=== PATIENT | female | born 1945 | race Caucasian/White ===

== ENCOUNTER → 2016-08-08 | Outpatient (REF) | payer MEDICARE, OTHER ==
[~2016-08-08] MED LIST: AMIT24CA5 PO; CALC600T7 PO; CLONI1TA PO; EVIS1TAB PO; GEOD1CAP PO; POTA10CA32 PO; PROTPAK PO; RANI1TAB6 PO; SYNT150T PO; TOPA100T8 PO; TRAD5TAB PO; TRIA37.53 PO; TUMS500C PO; VYTO10TA2 PO; ZOLO100T PO; ZYPR10TA PO; [UNRECOGNIZED DRUG - CODE] PO
[2016-08-08 14:54] LABS: PERCENT SATURATION 19.4 % (13.2-37.4)
[2016-08-08 19:07] LABS: BACTERIA, URINE SMALL AMOUNT; CALCIUM OXALATE CRYSTALS,URINE LARGE AMOUNT /hpf; SQUAMOUS EPITHELIAL CELL URINE LARGE AMOUNT /hpf (SMALL AMT)
[2016-08-08 19:08] LABS: HYALINE CAST, URINE 20-30 /lpf (0-1); MICROSCOPIC EXAM PERFORMED
== END ==
LOC: M LAB REF 13:07
PROVIDERS: ATTEND Internal Medicine Nephrology
DX: N18.3 Chronic kidney disease, stage 3 (moderate) (principal); R31.9 Hematuria, unspecified; D63.1 Anemia in chronic kidney disease

== ENCOUNTER → 2016-08-15 | Outpatient (CLI) | payer MEDICARE, BC, OTHER ==
--- NOTE | 2016-08-15 16:36 | REP ---
Clinical: Chronic renal disease. Technique: Real time bonilla scale ultrasound examination using curved array transducer. Findings: The right kidney is normal in contour, size, echogenicity, and reniform shape without hydronephrosis, nephrolithiasis, cystic or mass lesion and measures 9.8 x 3.8 x 4.0 cm. The left kidney is normal in contour, size, and reniform shape appearing mildly echogenic without hydronephrosis, nephrolithiasis, cystic or mass lesion and measures 9.2 x 4.7 x 4.2 cm. Bladder is incompletely distended. Impression: Findings compatible with chronic medical renal disease (left greater than right). No hydronephrosis. Signed by Max Chung MD 08/15/2016 04:28 P
== END ==
LOC: M RAD 15:48
PROVIDERS: ATTEND Internal Medicine Nephrology
DX: E11.22 Type 2 diabetes mellitus with diabetic chronic kidney disease (principal); I12.9 Hypertensive chronic kidney disease with stage 1 through stage 4 chronic kidney disease, or unspecified chronic kidney disease; N18.3 Chronic kidney disease, stage 3 (moderate)
CPT/HCPCS: 76775; G0463

== ENCOUNTER → 2016-11-02 | Outpatient (REF) | payer MEDICARE, OTHER ==
[~2016-11-02] MED LIST changes: -AMIT24CA5 PO; +AMIT24CA7 PO; +TOPA100T12 PO; -TOPA100T8 PO; -VYTO10TA2 PO; +VYTO10TA25 PO
[2016-11-02 15:58] LABS: ALBUMIN 3.5 GM/DL (3.2-5.2); ALBUMIN/GLOBULIN RATIO 1.21 (1.00-1.93); BILIRUBIN,TOTAL 0.3 MG/DL (0.2-1.0); CALCIUM LEVEL 8.6 MG/DL (8.8-10.2); CREATININE FOR GFR 1.22 MG/DL (0.55-1.02); POTASSIUM SERUM 4.5 MEQ/L (3.5-5.1); TOTAL PROTEIN 6.4 GM/DL (6.4-8.2)
== END ==
LOC: M SFHCLACO 09:20
PROVIDERS: ATTEND Physician Assistant
DX: E78.2 Mixed hyperlipidemia (principal); E87.6 Hypokalemia; I10 Essential (primary) hypertension; E11.9 Type 2 diabetes mellitus without complications; E03.9 Hypothyroidism, unspecified

== ENCOUNTER → 2016-11-16 | Outpatient (REF) | payer MEDICARE, OTHER ==
[~2016-11-16] MED LIST changes: +AMIT24CA5 PO; -AMIT24CA7 PO; -TOPA100T12 PO; +TOPA100T8 PO; +VYTO10TA2 PO; -VYTO10TA25 PO
[2016-11-16 18:36] LABS: BACTERIA, URINE SMALL AMOUNT; RBC, URINE 0-1 /hpf (0-3); SQUAMOUS EPITHELIAL CELL URINE MOD AMOUNT /hpf (SMALL AMT)
[2016-11-16 18:39] LABS: MICROSCOPIC EXAM PERFORMED
== END ==
LOC: M LAB REF 17:07
PROVIDERS: ATTEND Internal Medicine Nephrology
DX: R82.99 Other abnormal findings in urine (principal)

== ENCOUNTER → 2017-04-17 | Outpatient (CLI) | payer MEDICARE, BC ==
[~2017-04-17] MED LIST changes: -AMIT24CA5 PO; +AMIT24CA7 PO; +TOPA100T12 PO; -TOPA100T8 PO; -VYTO10TA2 PO; +VYTO10TA25 PO
--- NOTE | 2017-04-17 15:07 | REPMRS ---
Patient History The patient states she had a clinical breast exam in 03/2017. Patient is postmenopausal and has history of endometrial cancer at age 33. Family history of colorectal cancer in mother and prostate cancer in 2 brothers at age 50 or over. Benign excisional biopsy of the left breast, 1989. Digital Woman Screen Mammo: April 17, 2017 - Exam #: [id number] Bilateral CC and MLO view(s) were taken. Technologist: Tiffany Shannon, Technologist Prior study comparison: March 30, 2016, digital woman screen mammo performed at [facility] to [facility]. February 26, 2015, digital woman screen mammo performed at [facility] to [facility]. FINDINGS: There are scattered fibroglandular densities. There has been no change in the appearance of the mammogram from the prior studies. There is a mild amount of residual fibroglandular tissue which is fairly symmetric. There is no interval development of dominant mass, architectural distortion, or clustered microcalcification suggestive of malignancy. ASSESSMENT: BI-RADS/ACR category 1 mammogram. Negative. Recommendation Routine screening mammogram in 1 year (for women over age 40). This mammogram was interpreted with the aid of an FDA-approved computer-aided dectection system. Electronically Signed By: Luis M Chatman MD 04/17/17 [id number]
== END ==
LOC: M WHC 14:22
PROVIDERS: ATTEND Physician Assistant
DX: Z12.31 Encounter for screening mammogram for malignant neoplasm of breast (principal); Z80.0 Family history of malignant neoplasm of digestive organs

== ENCOUNTER → 2017-05-01 | Outpatient (REF) | payer MEDICARE, OTHER ==
[2017-05-01 16:01] LABS: ALBUMIN 3.8 GM/DL (3.2-5.2); ALBUMIN/GLOBULIN RATIO 1.15 (1.00-1.93); BILIRUBIN,TOTAL 0.3 MG/DL (0.2-1.0); CALCIUM LEVEL 9.4 MG/DL (8.8-10.2); CREATININE FOR GFR 1.36 MG/DL (0.55-1.02); GLOMERULAR FILTRATION RATE 40.5 (>39); POTASSIUM SERUM 4.4 MEQ/L (3.5-5.1); TOTAL PROTEIN 7.1 GM/DL (6.4-8.2)
== END ==
LOC: M SFHCLACO 09:48
PROVIDERS: ATTEND Physician Assistant
DX: I10 Essential (primary) hypertension (principal); E78.2 Mixed hyperlipidemia; E87.6 Hypokalemia; E11.9 Type 2 diabetes mellitus without complications; E03.9 Hypothyroidism, unspecified

== ENCOUNTER → 2017-10-30 | Outpatient (REF) | payer MEDICARE, OTHER ==
[2017-10-30 15:10] LABS: ESTIMATED AVERAGE GLUCOSE 128 MG/DL (60-110); HEMOGLOBIN A1c 6.1 %
[2017-10-30 15:35] LABS: ALBUMIN 3.7 GM/DL (3.2-5.2); ALBUMIN/GLOBULIN RATIO 1.19 (1.00-1.93); ALKALINE PHOSPHATASE 81 U/L (45-117); ALT/SGPT 23 U/L (12-78); ANION GAP 7 MEQ/L (8-16); AST/SGOT 21 U/L (7-37); BILIRUBIN,TOTAL 0.3 MG/DL (0.2-1.0); BLOOD UREA NITROGEN 20 MG/DL (7-18); CALCIUM LEVEL 9.3 MG/DL (8.8-10.2); CARBON DIOXIDE LEVEL 24 MEQ/L (21-32); CHLORIDE LEVEL 105 MEQ/L (98-107); CHOLESTEROL LEVEL 176 MG/DL (<200); CHOLESTEROL RISK RATIO 1.795 (<5); CREATININE FOR GFR 1.31 MG/DL (0.55-1.30); GLOMERULAR FILTRATION RATE 42.3 (>39); GLUCOSE, FASTING 98 MG/DL (70-100); HDL CHOLESTEROL 98 MG/DL (>40); LDL CHOLESTEROL 63.4 MG/DL (<100); NON-HDL-C 78 MG/DL; POTASSIUM SERUM 4.5 MEQ/L (3.5-5.1); SODIUM LEVEL 136 MEQ/L (136-145); TOTAL PROTEIN 6.8 GM/DL (6.4-8.2); TRIGLYCERIDES LEVEL 73 MG/DL (<150)
== END ==
LOC: M SFHCLACO 09:06
DX: I10 Essential (primary) hypertension (principal); E78.2 Mixed hyperlipidemia; E87.6 Hypokalemia; E11.9 Type 2 diabetes mellitus without complications; E03.9 Hypothyroidism, unspecified
CPT/HCPCS: 84443

== ENCOUNTER → 2017-11-13 | Outpatient (REF) | payer MEDICARE, OTHER | LOC: M SFHCLACO 10:00 | DX: E03.9 Hypothyroidism, unspecified (principal) | CPT/HCPCS: 84443 ==

== ENCOUNTER → 2018-01-08 | Outpatient (REF) | payer MEDICARE, OTHER ==
[2018-01-08 19:01] LABS: OSMOLALITY URINE 403 MOSM/KG (500-800)
[2018-01-08 19:13] LABS: SODIUM,RANDOM URINE 14 MEQ/L
== END ==
LOC: M LAB REF 17:14
DX: E87.1 Hypo-osmolality and hyponatremia (principal)
CPT/HCPCS: 83935

== ENCOUNTER → 2018-02-13 | Outpatient (REF) | payer MEDICARE, OTHER | LOC: M LABDRAW1 17:51 | DX: M25.552 Pain in left hip (principal); K59.01 Slow transit constipation | CPT/HCPCS: 85027 ==

== ENCOUNTER → 2018-02-13 | Outpatient (REF) | payer MEDICARE, OTHER ==
[2018-02-13 19:23] LABS: HEMATOCRIT 36.1 % (36.0-47.0); HEMOGLOBIN 11.8 g/dl (12.0-15.5); MEAN CORPUSCULAR HEMOGLOBIN 31.4 pg (27.0-33.0); MEAN CORPUSCULAR HGB CONC 32.7 g/dl (32.0-36.5); PLATELET COUNT, AUTOMATED 277 10^3/uL (150-450); RED BLOOD COUNT 3.76 10^6/uL (4.00-5.40); RED CELL DISTRIBUTION WIDTH 14.8 % (11.5-14.5); WHITE BLOOD COUNT 9.7 10^3/uL (4.0-10.0)
== END ==
LOC: M LABDRAW1 17:52
DX: K59.01 Slow transit constipation (principal)

== ENCOUNTER → 2018-04-22 | Outpatient (CLI) | payer MEDICARE, BC | LOC: M WHC 12:44 | DX: Z12.31 Encounter for screening mammogram for malignant neoplasm of breast (principal); Z92.89 Personal history of other medical treatment; Z80.42 Family history of malignant neoplasm of prostate; Z80.0 Family history of malignant neoplasm of digestive organs | CPT/HCPCS: 77067 ==

== ENCOUNTER → 2018-05-13 | Outpatient (REF) | payer MEDICARE, OTHER ==
[2018-05-13 18:38] LABS: PERCENT SATURATION 17.2 % (13.2-45.0)
[2018-05-13 19:06] LABS: FOLATE 19.3 NG/ML
== END ==
LOC: M LAB REF 17:22
PROVIDERS: ATTEND Internal Medicine Nephrology
DX: D64.9 Anemia, unspecified (principal)

== ENCOUNTER → 2018-05-30 | Outpatient (REF) | payer MEDICARE, OTHER ==
[2018-05-30 16:12] LABS: FREE T4 0.84 NG/DL (0.76-1.46); THYROID STIMULATING HORMONE 5.72 uIU/ML (0.358-3.740); TOTAL T3 81.8 NG/DL (60.0-181.0)
== END ==
LOC: M LABDRAW1 13:22
PROVIDERS: ATTEND Physician Assistant
DX: E03.9 Hypothyroidism, unspecified (principal)
CPT/HCPCS: 36415; 84439; 84443; 84480; G0463

== ENCOUNTER → 2019-12-23 | Outpatient (REF) | payer MEDICARE, OTHER, BC ==
[~2019-12-23] MED LIST changes: +CALC-212 PO; -CALC600T7 PO; +RANI-397 PO; -RANI1TAB6 PO
[2020-01-16 11:13] LABS: HEMOGLOBIN 11.6 g/dl (12.0-15.5); MEAN CORPUSCULAR HEMOGLOBIN 30.1 pg (27.0-33.0); MEAN CORPUSCULAR HGB CONC 33.1 g/dl (32.0-36.5); MEAN CORPUSCULAR VOLUME 90.9 fl (80.0-96.0); PLATELET COUNT, AUTOMATED 224 10^3/uL (150-450); RED BLOOD COUNT 3.85 10^6/uL (4.00-5.40)
[2020-01-16 11:14] LABS: ERYTHROCYTE SEDIMENTATION RATE 45 mm/hr (0-30)
[2020-01-26 15:23] LABS: ALBUMIN 3.5 GM/DL (3.2-5.2); ALT/SGPT 28 U/L (12-78); BILIRUBIN,TOTAL 0.3 MG/DL (0.2-1.0); BLOOD UREA NITROGEN 12 MG/DL (7-18); C REACTIVE PROTEIN QUANTITATIV 1.08 MG/DL (0.00-0.30); CALCIUM LEVEL 8.8 MG/DL (8.8-10.2); CARBON DIOXIDE LEVEL 24 MEQ/L (21-32); CHLORIDE LEVEL 100 MEQ/L (98-107); CREATININE FOR GFR 0.88 MG/DL (0.55-1.30); FERRITIN 87 NG/ML (8-252); FREE T4 1.24 NG/DL (0.76-1.46); GLOMERULAR FILTRATION RATE > 60.0 (>39); GLUCOSE, FASTING 83 MG/DL (70-100); IRON (FE) 59 UG/DL (50-170); PERCENT SATURATION 18.9 % (13.2-45.0); POTASSIUM SERUM 4.1 MEQ/L (3.5-5.1); SODIUM LEVEL 133 MEQ/L (136-145); THYROID STIMULATING HORMONE 0.061 uIU/ML (0.358-3.740); TOTAL IRON BINDING CAPACITY 312 UG/DL (250-450); TOTAL PROTEIN 6.6 GM/DL (6.4-8.2)
== END ==
LOC: M SFHCPLAZ 15:26
PROVIDERS: ATTEND Family Medicine
DX: N18.3 Chronic kidney disease, stage 3 (moderate) (principal); E11.22 Type 2 diabetes mellitus with diabetic chronic kidney disease; I12.9 Hypertensive chronic kidney disease with stage 1 through stage 4 chronic kidney disease, or unspecified chronic kidney disease; E07.9 Disorder of thyroid, unspecified

== ENCOUNTER 2019-12-31 07:05 | Inpatient (IN) | payer MEDICARE, BC, OTHER ==
[~2019-12-31 07:05] MED LIST changes: +ACETAMINOPHEN 500 MG TAB As Ordered ONE; +LIDOCAINE 2% 100MG/5ML SDV (FOR ANES.) As Ordered ONE; +MIDAZOLAM INJ 2MG/2ML VIAL (J2250 PER 1MG) As Ordered ONE; +ceFAZolin 2 GM/D5W 50 ML IV BAG (J0690 PER 500MG) As Ordered ONE; +fentaNYL 100 MCG/2 ML INJECTION (J3010) As Ordered ONE; +propofoL 200 MG/20 ML VIAL As Ordered ONE
[2019-12-31] MEDS ORDERED: ceFAZolin 1GM VIAL (J0690 PER 500MG) As Ordered ONE (07:34)
[2019-12-31] MEDS ORDERED: PHENYLephrine HCL 500 MCG/5 ML (100MCG/ML) SYRINGE (J2370) As Ordered ONE ×3 (08:15→09:21)
[2019-12-31] MEDS ORDERED: propofoL 200 MG/20 ML VIAL As Ordered ONE (08:23)
[2019-12-31] MEDS ORDERED: ePHEDrine SULFATE 25 MG/5 ML(5MG/ML) SYRINGE As Ordered ONE (08:59)
[2019-12-31] MEDS ORDERED: ONDANSETRON 4MG/2ML VIAL As Ordered ONE (10:08)
[2019-12-31] MEDS ORDERED: ONDANSETRON 4MG/2ML VIAL ONE (10:08)
[2019-12-31] MEDS ORDERED: oxyCODONE 5MG TAB ONE (10:13)
[2019-12-31] MEDS ORDERED: HYDROMORPHONE HCL 0.5 MG/ 0.5 ML SYRINGE (J1170 PER 1) ONE (10:13)
[2019-12-31] MEDS ORDERED: HYDROMORPHONE HCL 0.5 MG/ 0.5 ML SYRINGE (J1170 PER 1) As Ordered ONE (10:13)
[2019-12-31] MEDS ORDERED: oxyCODONE 5MG TAB As Ordered ONE (10:13)
[2019-12-31] MEDS ORDERED: METOCLOPRAMIDE INJ 10MG/2ML VIAL (J2765 PER 1) As Ordered ONE (10:28)
[2019-12-31] MEDS ORDERED: METOCLOPRAMIDE INJ 10MG/2ML VIAL (J2765 PER 1) ONE (10:28)
[2019-12-31] MEDS ORDERED: MORPHINE 2 MG/ML 1ML VIAL (J2270) As Ordered ONE (13:50)
[2019-12-31] MEDS ORDERED: ceFAZolin 2 GM/D5W 50 ML IV BAG (J0690 PER 500MG) As Ordered ONE ×2 (17:11→23:18)
[2019-12-31] MEDS ORDERED: PERCOCET 5MG/325MG TAB As Ordered ONE (19:41)
[2019-12-31] MEDS ORDERED: PANTOPRAZOLE 40MG TAB (PROTONIX) As Ordered ONE (23:18)
[2019-12-31] MEDS ORDERED: TOPIRAMATE (TopAMAX) 100 MG TAB As Ordered ONE (23:18)
[2019-12-31] MEDS ORDERED: POTASSIUM CHLORIDE 10 MEQ SR TABLET As Ordered ONE (23:18)
[2019-12-31] MEDS ORDERED: OLANZapine 5 MG TAB As Ordered ONE (23:19)
[2019-12-31] MEDS ORDERED: ASPIRIN 81 MG ENTERIC TAB As Ordered ONE (23:19)
[2019-12-31] MEDS ORDERED: SERTRALINE 100 MG TAB As Ordered ONE (23:19)
[2020-01-01] MEDS ORDERED: PERCOCET 5MG/325MG TAB As Ordered ONE ×3 (03:36→18:21)
[2020-01-01] MEDS ORDERED: LEVOTHYROXINE 150MCG TABLET (0.15MG) As Ordered ONE (06:53)
[2020-01-01] MEDS ORDERED: ceFAZolin 2 GM/D5W 50 ML IV BAG (J0690 PER 500MG) As Ordered ONE (09:31)
[2020-01-01] MEDS ORDERED: SENOKOT S TAB As Ordered ONE ×2 (09:33→22:12)
[2020-01-01] MEDS ORDERED: MIRALAX *UNIT DOSE* 17GM PACKET As Ordered ONE (09:33)
[2020-01-01] MEDS ORDERED: MOM 30ML SUSPENSION UDC As Ordered ONE (09:33)
[2020-01-01] MEDS ORDERED: ASPIRIN 81 MG ENTERIC TAB As Ordered ONE ×2 (09:34→22:14)
[2020-01-01] MEDS ORDERED: PANTOPRAZOLE 40MG TAB (PROTONIX) As Ordered ONE (22:10)
[2020-01-01] MEDS ORDERED: POTASSIUM CHLORIDE 10 MEQ SR TABLET As Ordered ONE (22:12)
[2020-01-01] MEDS ORDERED: OLANZapine 5 MG TAB As Ordered ONE (22:13)
[2020-01-01] MEDS ORDERED: SERTRALINE 100 MG TAB As Ordered ONE (22:13)
[2020-01-01] MEDS ORDERED: TOPIRAMATE (TopAMAX) 100 MG TAB As Ordered ONE (22:13)
[2020-01-02] MEDS ORDERED: PERCOCET 5MG/325MG TAB As Ordered ONE (00:54)
[2020-01-02] MEDS ORDERED: LEVOTHYROXINE 150MCG TABLET (0.15MG) As Ordered ONE (05:18)
[2020-01-02] MEDS ORDERED: ONDANSETRON 4MG/2ML VIAL As Ordered ONE (06:30)
[2020-01-02] MEDS ORDERED: HumaLOG INSULIN (NovoLOG) PER UNIT As Ordered ONE (09:00)
[2020-01-02] MEDS ORDERED: MOM 30ML SUSPENSION UDC As Ordered ONE (09:00)
[2020-01-02] MEDS ORDERED: SENOKOT S TAB As Ordered ONE (09:01)
[2020-01-02] MEDS ORDERED: TOPIRAMATE (TopAMAX) 100 MG TAB As Ordered ONE (09:01)
[2020-01-02] MEDS ORDERED: MIRALAX *UNIT DOSE* 17GM PACKET As Ordered ONE (09:01)
[2020-01-02] MEDS ORDERED: POTASSIUM CHLORIDE 10 MEQ SR TABLET As Ordered ONE (09:01)
[2020-01-02] MEDS ORDERED: ASPIRIN 81 MG ENTERIC TAB As Ordered ONE (09:02)
[2020-01-02] MEDS ORDERED: OLANZapine 5 MG TAB As Ordered ONE (09:02)
[2020-01-02] MEDS ORDERED: ZIPRASIDONE 80 MG CAP (GEODON) ONE (13:00)
[2020-02-06 15:14] LABS: HEMATOCRIT 22.8 % (36.0-47.0); HEMOGLOBIN 7.4 g/dl (12.0-15.5)
--- NOTE | 2020-02-18 10:50 | REP ---
LEFT HIP: TWO VIEWS DATE: 12/31/2019. HISTORY: Postoperative. NOTE: This report was delayed due to a malware attack on this facility. FINDINGS: AP and cross table lateral views of the left hip demonstrate lateral skin ileana and periarticular soft tissue emphysema and swelling associated with left hip arthroplasty. Arthroplasty components are well aligned with respect to their lower brule bones and with respect to each other. IMPRESSION: Status post left hip arthroplasty. CATIE
[2020-02-18 20:07] LABS: HEMATOCRIT 26.6 % (36.0-47.0); HEMOGLOBIN 9.1 g/dl (12.0-15.5); MEAN CORPUSCULAR HGB CONC 34.2 g/dl (32.0-36.5); MEAN CORPUSCULAR VOLUME 87.8 fl (80.0-96.0); PLATELET COUNT, AUTOMATED 134 10^3/uL (150-450); RED BLOOD COUNT 3.03 10^6/uL (4.00-5.40)
[2020-02-18 20:07] LABS: HEMOGLOBIN 9.6 g/dl (12.0-15.5)
[2020-02-28 07:27] LABS: INR 1.03; PROTHROMBIN TIME 13.7 SECONDS (12.5-14.3)
[2020-02-28 11:18] LABS: HEMOGLOBIN 7.7 g/dl (12.0-15.5); MEAN CORPUSCULAR HEMOGLOBIN 30.1 pg (27.0-33.0); MEAN CORPUSCULAR HGB CONC 33.5 g/dl (32.0-36.5); MEAN CORPUSCULAR VOLUME 89.8 fl (80.0-96.0); PLATELET COUNT, AUTOMATED 143 10^3/uL (150-450); RED BLOOD COUNT 2.56 10^6/uL (4.00-5.40)
--- NOTE | 2020-03-04 11:41 | RO ---
DATE OF OPERATION: 12/31/2019 PREOPERATIVE DIAGNOSIS: Left hip severe degenerative arthritis. POSTOPERATIVE DIAGOSIS: Left hip severe degenerative arthritis. PROCEDURE: Left total hip arthroplasty using a size 52 GRIPTION Sector cup with two acetabular screws with a 36-mm neutral polyethylene liner and a size #5 standard offset Greeley stem with a 1.5 neck and a 36-mm cobalt chrome ball. Prosthesis made by [employer]. SURGEON: Faisal Quintero M.D. POWDERER: Ms. Rosalba Crane. ANESTHESIA: Spinal. SPECIMENS: Femoral head. COMPLICATIONS: None. ESTIMATED BLOOD LOSS: 200 mL. FINDINGS: She had significant lateral subluxation of the hip with superior wear on the lateral rim and the acetabulum. This did require medialization of the acetabular cup and deepening. This left a bit of a deficiency superolaterally once the cup had been implanted and screws were placed for secondary fixation. DESCRIPTION OF PROCEDURE: Antibiotics were given intravenously preoperatively and successful spinal anesthetic was induced. She was placed in the lateral decubitus position. Well-padded especially the peroneal nerve. The left hip area was then carefully prepped and draped in the usual sterile fashion after appropriate time-out. We made a longitudinal incision for a direct lateral approach to the hip using Bovee cautery to coagulate crossing vessels down to the tensor fascia. The tensor fascia was divided in line with a skin incision underlying this. It was noteworthy that there was absence of abductors on the greater trochanter. What did remain, we split proximally down into the gluteus minimus and performed an arthrotomy and carefully dissected anteriorly off the bone as we externally rotated the hip, eventually dislocating anteriorly, and placing the leg into the leg bag anteriorly. Piriformis fossa was identified. Starter reamer was placed reamer then placed followed by the canal finding reamer and then the lateralizing reamer. We then reamed up to a size 6; however, it was quite tight proximally and it seemed as if there was a bit of a proximal or distal mismatch. We then performed a femoral neck osteotomy using the guide and then broached up to a size 5 (that is the largest we could fit proximally), but she had a very good stable fit proximally. The small calcar planer was utilized within and exposed the acetabulum. There was a large amount of labral tearing and debris, which was removed circumferentially. Some large bleeders were noted in the deep and medial that were coagulated. We then noted that there was a large floor osteophytes. So we deepened initially with a 48-mm reamer down to the acetabulum fossa and then began expanding our reamers to either the 49, the 50, and the 51. The trial 52 we placed had good fixation inferomedially and inferolaterally, but posterosuperiorally there was a large gap secondary to the eccentric wear. Thus, I elected to the use the GRIPTION Sector cup and supplement with screw fixation. After copiously pulsatile lavage irrigating the acetabulum, as I did do several times throughout the surgery, I placed the real GRIPTION cup using the extramedullary guide to set our version in abduction and actually had reasonable purchase, but nonetheless I did drill the lateral superior screw with a drill measured for 20 and placed a 20 screw with excellent purchase, and then I placed a second screw posterosuperior using the drill followed by the depth gauge measuring 20 and then placed the real screw, and this screw actually had very good purchase into the dense sclerotic bone that had been worn away from the chronic lateral subluxation of her femoral head. We copiously irrigated and then placed the real neutral 36 liner and made sure it was seated well. We then exposed the proximal femur and copiously irrigated out the femoral canal and then placed the trial broach with a 1.5 neck with a 36 ball and then reduced the hip, and she actually had very good stability to flexion, internal rotation, extension, and external rotation. Thus, despite deepening, I did not think a lateral offset was necessary nor did I think it was advisable given the loss of the abductors already and it would have been more difficult to repair what remained of her abductors if we laterally offset the stem. The trial was removed. We copiously irrigated out the canal and placed the real #5 Greeley stem with a standard offset. The 36 x 1.5 ball was then placed after drying the trunnion, and then we reduced the hip. Again, she was very stable with flexion, internal rotation, extension, and external rotation with minimal soft tissue telescoping. We then copious irrigated again and closed the abductors as best as possible first superiorly by closing the gluteus minimus and what remained of the meatus anatomically with interrupted #1 PDS sutures. We closed the vastus lateralis back anatomically with interrupted #1 PDS sutures. We then began irrigating again and closing the tensor fascia with a series of the #1 interrupted sutures. We irrigated between layers. Closed the deep subdermal tissues with interrupted 2-0 PDS sutures and skin was closed with ileana covered by an Optifoam and dry sterile bulky dressing. She was then turned supine and transferred to the recovery room in stable condition. There were no intraoperative complications. Rosalba Royce was critical to the success of this difficult surgery by helping with the appropriate soft tissue manipulation, help to reduce and dislocate the hip several times throughout surgery, help to close the wound, help to prepare the patient amongst many other to allow me to perform the operation smoothly, efficiently, and safely. CATIE
[2020-03-22 10:22] LABS: ALBUMIN 2.4 GM/DL (3.2-5.2); ALT/SGPT 12 U/L (12-78); BILIRUBIN,TOTAL 0.5 MG/DL (0.2-1.0); BLOOD UREA NITROGEN 10 MG/DL (7-18); CALCIUM LEVEL 7.9 MG/DL (8.8-10.2); CARBON DIOXIDE LEVEL 23 MEQ/L (21-32); CHLORIDE LEVEL 103 MEQ/L (98-107); CREATININE FOR GFR 0.77 MG/DL (0.55-1.30); GLOMERULAR FILTRATION RATE > 60.0 (>39); GLUCOSE, FASTING 116 MG/DL (70-100); PHOSPHORUS LEVEL 2.2 MG/DL (2.5-4.9); POTASSIUM SERUM 3.9 MEQ/L (3.5-5.1); SODIUM LEVEL 133 MEQ/L (136-145); TOTAL PROTEIN 4.8 GM/DL (6.4-8.2)
[2020-03-22 16:42] LABS: ALBUMIN 2.6 GM/DL (3.2-5.2); BILIRUBIN,TOTAL 0.3 MG/DL (0.2-1.0); CALCIUM LEVEL 8.4 MG/DL (8.8-10.2); CREATININE FOR GFR 0.97 MG/DL (0.55-1.30); GLOMERULAR FILTRATION RATE 59.4 (>39); MAGNESIUM LEVEL 1.7 MG/DL (1.8-2.4); POTASSIUM SERUM 4.1 MEQ/L (3.5-5.1); TOTAL PROTEIN 4.8 GM/DL (6.4-8.2)
== END 2020-01-02 15:00 | disposition home or self-care (01) | DRG 470 ==
LOC: M MS5PR 07:05
PROVIDERS: ADMIT Orthopaedic Surgery; ATTEND Orthopaedic Surgery
PROC: 0SRB0JZ Replacement of Left Hip Joint with Synthetic Substitute, Open Approach (ICD-10-PCS; principal; 2019-12-31)
DX: M16.12 Unilateral primary osteoarthritis, left hip (principal); Z79.899 Other long term (current) drug therapy

== ENCOUNTER → 2020-01-14 | Outpatient (REF) | payer MEDICARE, OTHER, BC ==
[~2020-01-14] MED LIST changes: -ACETAMINOPHEN 500 MG TAB As Ordered ONE; -LIDOCAINE 2% 100MG/5ML SDV (FOR ANES.) As Ordered ONE; -MIDAZOLAM INJ 2MG/2ML VIAL (J2250 PER 1MG) As Ordered ONE; -ceFAZolin 2 GM/D5W 50 ML IV BAG (J0690 PER 500MG) As Ordered ONE; -fentaNYL 100 MCG/2 ML INJECTION (J3010) As Ordered ONE; -propofoL 200 MG/20 ML VIAL As Ordered ONE
[2020-01-14 14:24] LABS: BASO % 0.3 % (0.0-1.0); EOS # 0.4 10^3/uL (0.0-0.5); HEMATOCRIT 28.3 % (36.0-47.0); HEMOGLOBIN 9.1 g/dl (12.0-15.5); LYMPH # 0.5 10^3/uL (1.5-5.0); LYMPH % 5.4 % (24.0-44.0); MEAN CORPUSCULAR HEMOGLOBIN 29.7 pg (27.0-33.0); MEAN CORPUSCULAR HGB CONC 32.2 g/dl (32.0-36.5); MEAN CORPUSCULAR VOLUME 92.5 fl (80.0-96.0); MONO # 0.5 10^3/uL (0.0-0.8); MONO % 5.7 % (0.0-5.0); NEUTROPHILS # 7.3 10^3/uL (1.5-8.5); NEUTROPHILS % 83.9 % (36.0-66.0); PLATELET COUNT, AUTOMATED 219 10^3/uL (150-450); RED BLOOD COUNT 3.06 10^6/uL (4.00-5.40); WHITE BLOOD COUNT 8.8 10^3/uL (4.0-10.0)
== END ==
LOC: M SMT 13:03 → M LAB REF 13:03
PROVIDERS: ATTEND Physician Assistant Medical
DX: Z47.1 Aftercare following joint replacement surgery (principal)

== ENCOUNTER → 2020-01-27 | Outpatient (REF) | payer MEDICARE, OTHER, BC ==
[2020-01-27 20:09] LABS: PERCENT SATURATION 13.8 % (13.2-45.0)
== END ==
LOC: M LAB REF 14:41
PROVIDERS: ATTEND Internal Medicine Nephrology
DX: D50.9 Iron deficiency anemia, unspecified (principal)

== ENCOUNTER 2020-05-03 13:21 | Inpatient (IN) | payer MEDICARE, BC, OTHER ==
[2020-05-03] MEDS: LR 1,000 ML IV SCH (14:15)
--- NOTE | 2020-05-03 14:32 | HPEPDOC ---
[facility] Medical History & Physical Date of Admission May 03, 2020 Date of Service: May 03, 2020 History and Physical CHIEF COMPLAINT: Right hip pain HISTORY OF PRESENT ILLNESS: 75-year-old female who was seen at the orthopedics clinic by Dr. Ware complaining of right hip pain with x-rays in office showing right femoral neck fracture. Patient was directly admitted to the hospital by her surgeon for surgery. Patient tells me that her right hip pain started approximately 2 weeks ago noticed by her and she has dismissed it as she has no memory of falling and didn't think much of it. This hip pain has progressed since has become very bothersome which led her to go to the orthopedics clinic today. Patient has a recent history of left total hip replacement in December of this year and had just finished home physical therapy 2 weeks ago. I was asked to do a medical consult to manage patient's chronic medical problems and surgical clearance. PAST MEDICAL HISTORY: CKD stage III NIDDM COPD not on home oxygen MDD Hypothyroidism Dementia predominance of short-term memory loss Lung cancer PAST SURGICAL HISTORY: Total left hip replacement Right knee replacement Hysterectomy SOCIAL HISTORY: Denies alcohol use Denies tobacco use currently however she quit smoking 30 years ago prior to that she smoked one pack per day for 30 years. Denies illicit drug use FAMILY HISTORY: Brother history of lung cancer and diabetes Father history of CVA and CAD ALLERGIES: Please see below. REVIEW OF SYSTEMS: 10 point review of systems complete all negative otherwise stated in HPI HOME MEDICATIONS: Please see below. PHYSICAL EXAMINATION: Constitutional: Awake and alert, in no apparent distress. Answering questions appropriately. ENT: Sclera are clear. Mucosa is moist. Respiratory: Lungs CTA bilaterally no wheezing no crackles. No respiratory distress. No use of accessory muscles. Cardiovascular: RRR S1 and S2 are normal, no murmur, no JVD Gastrointestinal: Abdomen is soft, non distended, non tender, BS present. Musculoskeletal: No LE edema. Right hip tender to manipulation Neurologic: No focal neurological deficit. Mental Status: A&O x3, normal affect, has very good long-term memory remembering items such as her knee surgery in 1991. However patient has poor short-term memory such as having to be reminded by her son that she just had a bowel movement a few hours in the hospital. Skin: Warm, dry LABORATORY DATA: See below. IMAGING: X-ray impressions 05/03/2020: Right femoral neck fracture with superior displacement of the right femoral shaft. MICROBIOLOGY: Please see below. ASSESSMENT/PLAN 75-year-old female who was seen at the orthopedics clinic by Dr. Ware complaining of right hip pain with x-rays in office showing right femoral neck fracture. Patient was directly admitted to the hospital by her surgeon for s scar. I was asked to see the patient to optimize her medical management and for surgical clearance. # Right femoral neck fracture: Ordered EKG. Follow-up CBC and CMP. Surgical clearance to follow once EKG is complete. Management/surgery per orthopedic # CKD stage III: Appears to be at baseline. Avoid nephrotoxins. # DM: ISS. Frequent Accu-Cheks. Hypoglycemic precautions. Fu A1C, lipid panel. # COPD not on home oxygen: Not in exacerbation. Continue home inhalers # MDD: Continue home meds # Hypothyroidism: Continue Synthroid # Dementia predominance of short-term memory loss: Bedside window, frequent reorientation # Lung cancer: Follow up with her oncologist and parachute cushion installer at [facility] upon discharge # DVT prophylaxis: Heparin A Yousef Hospitalist Home Medications Scheduled Brimonidine Tartrate (Brimonidine Tartrate) 0.15% 5ML Drops, 1 DROP OU BID Calcium Carbonate/Vitamin D3 (Calcium 600-Vit D3 400 Tablet) 1 Each Tablet, 2 TAB PO DAILY TAKES AT NOON Esomeprazole Magnesium (Nexium) 40 Mg Suspdr.pkt, 40 MG PO DAILY NEW MED, NOT STARTED YET Ezetimibe/Simvastatin (Ezetimibe-Simvastatin 10-40 mg) 1 Each Tablet, 1 TAB PO QHS Levothyroxine Sodium (Levothyroxine Sodium) 150 Mcg Tablet, 150 MCG PO QAM Olanzapine (Olanzapine) 15 Mg Tablet, 15 MG PO QHS Potassium Citrate (Potassium Citrate ER) 15 Meq Tablet.er, 15 MEQ PO BID TAKES AT NOON/QHS Raloxifene HCl (Raloxifene HCl) 60 Mg Tablet, 60 MG PO QHS Sertraline HCl (Sertraline HCl) 100 Mg Tablet, 200 MG PO QHS Topiramate (Topiramate) 100 Mg Tablet, 200 MG PO QHS Ziprasidone HCl (Ziprasidone HCl) 80 Mg Capsule, 80 MG PO QHS Scheduled PRN Ipratropium/Albuterol Sulfate (Combivent Respimat 20-100 Mcg) 4 Gm Mist.inhal, 1 PUFF INH QID PRN for SOB/WHEEZING Polyethylene Glycol 3350 (Miralax) 119 Gm Powder, 17 GM PO DAILY PRN for CONSTIPATION dilute in 8 ounces of water or juice Allergies Coded Allergies: Sulfa (Sulfonamide Antibiotics) (Verified Allergy, Intermediate, HIVES, 02/16/20) A-FIB/CHADSVASC A-FIB History Current/History of A-Fib/PAF?: No YOUSEFEULALIO MD May 03, 2020 14:32
[2020-05-03] MEDS ORDERED: RALO1TAB PO (15:13)
[2020-05-03] MEDS ORDERED: COMBAER6 INH (15:13)
[2020-05-03] MEDS ORDERED: TOPI100T9 PO (15:13)
[2020-05-03] MEDS ORDERED: ZIPR80CA12 PO (15:13)
[2020-05-03] MEDS ORDERED: MIRA3350 PO (15:13)
[2020-05-03] MEDS ORDERED: OLAN15TA PO (15:13)
[2020-05-03] MEDS ORDERED: EZET1TAB8 PO (15:13)
[2020-05-03] MEDS ORDERED: BRIM2OPD OU (15:13)
[2020-05-03] MEDS ORDERED: POTA4.25 PO (15:13)
[2020-05-03] MEDS ORDERED: LEVO150T7 PO (15:13)
[2020-05-03] MEDS ORDERED: SERT-138 PO (15:13)
[2020-05-03] MEDS ORDERED: NEXI40GR PO (15:13)
[2020-05-03] MEDS ORDERED: CALC600T27 PO (15:13)
[2020-05-03] MEDS: MORPHINE 4 MG/ML 1ML VIAL/SYRINGE (J2270) IV PRN (15:26)
[2020-05-03 15:43] LABS: HEMATOCRIT 33.1 % (36.0-47.0); HEMOGLOBIN 10.8 g/dl (12.0-15.5); MEAN CORPUSCULAR HGB CONC 32.6 g/dl (32.0-36.5); MEAN CORPUSCULAR VOLUME 97.9 fl (80.0-96.0); PLATELET COUNT, AUTOMATED 185 10^3/uL (150-450); RED BLOOD COUNT 3.38 10^6/uL (4.00-5.40); WHITE BLOOD COUNT 13.6 10^3/uL (4.0-10.0)
[2020-05-03 16:00] VITALS: BP 138/77
[2020-05-03] MEDS ORDERED: CLINDAMYCIN 900 MG in IV 1 EA IV ONE (16:00)
[2020-05-03 16:17] LABS: BLOOD UREA NITROGEN 25 MG/DL (7-18); CALCIUM LEVEL 9.1 MG/DL (8.8-10.2); CARBON DIOXIDE LEVEL 22 MEQ/L (21-32); CHLORIDE LEVEL 100 MEQ/L (98-107); CREATININE FOR GFR 0.88 MG/DL (0.55-1.30); GLOMERULAR FILTRATION RATE > 60.0 (>39); GLUCOSE, FASTING 105 MG/DL (70-100); NT-PRO BNP 170 PG/ML (<450); POTASSIUM SERUM 4.1 MEQ/L (3.5-5.1); SODIUM LEVEL 130 MEQ/L (136-145)
[2020-05-03] MEDS ORDERED: COMBIVENT RESPIMAT 100-20MCG INHALER 4GM INH PRN (17:30)
--- NOTE | 2020-05-03 17:46 | HPE ---
ADMISSION HISTORY AND PHYSICAL DATE OF ADMISSION: 05/03/2020 CHIEF COMPLAINT: Right hip pain. HISTORY OF PRESENT ILLNESS: This is a 75-year-old woman with no history of a fall although she is quite confused at baseline. She was accompanied by her son in the orthopedic office today. An x-ray obtained showed a displaced right femoral neck fracture. She recently underwent a left total hip arthroplasty on 12/31/19 and had been doing well following that, but she has been basically in a wheelchair, we believe, for the past 1-2 weeks due to this right hip pain. She was referred over to the hospital. The Hospitalists have been involved and are planning on seeing her once the COVID test returns. She has been apparently complaining about significant right hip pain, unable to bear significant weight on it. She was seen one of the P.A.s in the office. ALLERGIES: Her allergies previously listed on a previous H&P as Sulfa. MEDICATIONS: 1. Ferrous Gluconate. 2. Potassium Citrate. 3. Vytorin. 4. Tradjenta. 5. Combivent. 6. Levothyroxine. 7. Zoloft. 8. Geodon. 9. Zyprexa. 10. Topamax. 11. Evista. 12. Calcium. 13. Vitamin D. 14. Cranberry Extract. 15. Alphagan. 16. Toprol XL. 17. Ondansetron. 18. Prochlorperazine. 19. Imfinzi. PAST MEDICAL HISTORY: The patient's past medical history is significant for: 1. Chronic kidney disease. 2. Type 2 diabetes. 3. Hyponatremia. 4. Osteoporosis. 5. History of lung cancer. PAST SURGICAL HISTORY: The patient's past surgical history is significant for: 1. Right total knee arthroscopy. 2. Hysterectomy. 3. Left total hip arthroplasty. SOCIAL HISTORY: She is retired. She used to smoke previously. She does not drink alcohol. FAMILY HISTORY: Noncontributory. REVIEW OF SYSTEMS: The patient's review of systems is negative for chest pain, heart palpitations, cough, wheezing, difficulty breathing. Denies nausea, vomiting, diarrhea or constipation. She does complain of right hip pain. PHYSICAL EXAMINATION: GENERAL APPEARANCE: She is alert, oriented in no acute distress in the hospital. EXTREMITIES: She has some shortening of the right lower extremity compared to the left. The hip on the right demonstrates significant irritability to range of motion. SKIN: Intact. LUNGS: Clear. HEART: Regular rate and rhythm. ABDOMEN: Soft, nontender. IMAGING: X-rays are reviewed from the office and pending here, and they show evidence of a displaced garden IV right femoral neck fracture. IMPRESSION: Right femoral neck fracture, displaced, unknown age but this may be up to the past couple of weeks. It looks like she was seen in the office about [address] Patel and did not appear to have any issues with the right hip at that point. PLAN: The patient wishes to go ahead with a right hip hemiarthroplasty, and I think that is the most appropriate treatment. She does not have significant arthritis on this hip, so I think a hemiarthroplasty would be appropriate. She is aware of the nature of the procedure, the risks which are essentially the same as with the hip replacement which include bleeding, infection, damage to nerves, vessels, persistent pain, wear, loosening, dislocation, leg length inequality, blood clots, medical problems, , among others. The Hospitalists have agreed to see her in consult, but will admit her postoperatively, and this is just due to the way that she was brought into the hospital, not being brought through the Emergency Room. The Hospitalist indicated that he would work on the clearance today, and that she may be cleared for surgery tomorrow. We will plan on proceeding with a right hip hemiarthroplasty if she is cleared. Type and screen, preop antibiotics, n.p.o. past midnight are ordered. Repeat x-ray of the right hip is pending.
--- NOTE | 2020-05-03 17:48 | REP ---
INDICATION: r/o fx. COMPARISON: None. TECHNIQUE: Two views right hip performed. FINDINGS: There is a fracture of the right femoral neck with superior displacement of the femoral shaft. Femoral head remains in place within the acetabular fossa. IMPRESSION: Right femoral neck fracture with superior displacement of the right femoral shaft. <Electronically signed by Luis M Chatman > 05/03/20 [id number]
[2020-05-03] MEDS ORDERED: MOM 30ML SUSPENSION UDC PO PRN (18:30)
[2020-05-03] MEDS ORDERED: ACETAMINOPHEN TAB 650MG DOSE (2X325MG) PO PRN (18:30)
[2020-05-03 20:00] VITALS: BP 135/65
[2020-05-03] MEDS: DOCUSATE SODIUM 100MG CAPSULE PO SCH (21:00)
[2020-05-03] MEDS: HumaLOG INSULIN (NovoLOG) PER UNIT SC SCH (21:00)
[2020-05-03] MEDS: HEPARIN SOD (PORCINE) 5000UNITS/ML 1ML VIAL/SYRINGE SQ SCH (21:00)
[2020-05-03] MEDS: SERTRALINE 100 MG TAB PO SCH (21:01)
[2020-05-03] MEDS: OLANZapine 5 MG TAB PO SCH (21:01)
[2020-05-03] MEDS: BRIMONIDINE 0.15% OPHTH SOLN 5 ML OU SCH (21:01)
[2020-05-03] MEDS: TOPIRAMATE (TopAMAX) 100 MG TAB PO SCH (21:01)
[2020-05-03] MEDS: ZIPRASIDONE 80 MG CAP (GEODON) PO SCH (21:01)
[2020-05-04] MEDS ORDERED: GLUCAGON INJ 1MG VIAL SC PRN
[2020-05-04] MEDS ORDERED: GLUCOSE 4GM CHEW TABLET PO PRN
[2020-05-04] MEDS ORDERED: DEXTROSE 50% 50 ML SYRINGE IV PRN
[2020-05-04] MEDS: LEVOTHYROXINE 150MCG TABLET (0.15MG) PO SCH (05:40)
[2020-05-04] MEDS: MORPHINE 4 MG/ML 1ML VIAL/SYRINGE (J2270) IV PRN ×2 (05:44→14:23)
[2020-05-04 05:50] VITALS: BP 130/64
[2020-05-04] MEDS ORDERED: ceFAZolin SOD 2 GM in IV 1 EA IV ONE (06:00)
[2020-05-04] MEDS: LR 1,000 ML IV SCH (06:47)
[2020-05-04] MEDS: HumaLOG INSULIN (NovoLOG) PER UNIT SC SCH ×4 (07:30→21:00)
[2020-05-04 07:46] LABS: HEMATOCRIT 28.9 % (36.0-47.0); HEMOGLOBIN 9.6 g/dl (12.0-15.5); MEAN CORPUSCULAR HEMOGLOBIN 32.3 pg (27.0-33.0); MEAN CORPUSCULAR HGB CONC 33.2 g/dl (32.0-36.5); MEAN CORPUSCULAR VOLUME 97.3 fl (80.0-96.0); PLATELET COUNT, AUTOMATED 166 10^3/uL (150-450); RED BLOOD COUNT 2.97 10^6/uL (4.00-5.40); WHITE BLOOD COUNT 9.4 10^3/uL (4.0-10.0)
[2020-05-04] MEDS: HEPARIN SOD (PORCINE) 5000UNITS/ML 1ML VIAL/SYRINGE SQ SCH ×2 (08:09→21:36)
[2020-05-04] MEDS: DOCUSATE SODIUM 100MG CAPSULE PO SCH ×2 (08:09→21:36)
[2020-05-04 08:13] LABS: ALBUMIN 2.2 GM/DL (3.2-5.2); ALT/SGPT 38 U/L (12-78); BILIRUBIN,TOTAL 0.4 MG/DL (0.2-1.0); BLOOD UREA NITROGEN 20 MG/DL (7-18); CALCIUM LEVEL 8.6 MG/DL (8.8-10.2); CARBON DIOXIDE LEVEL 23 MEQ/L (21-32); CHLORIDE LEVEL 100 MEQ/L (98-107); CREATININE FOR GFR 0.84 MG/DL (0.55-1.30); GLOMERULAR FILTRATION RATE > 60.0 (>39); GLUCOSE, FASTING 95 MG/DL (70-100); SODIUM LEVEL 129 MEQ/L (136-145)
[2020-05-04] MEDS ORDERED: NS 1,000 ML IV SCH (08:15)
[2020-05-04] MEDS: SIMVASTATIN 40 MG TAB PO SCH (08:35)
[2020-05-04] MEDS: BRIMONIDINE 0.15% OPHTH SOLN 5 ML OU SCH ×2 (08:36→21:34)
--- NOTE | 2020-05-04 09:03 | ECGEPIP ---
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 No prior ECG available for comparison at the time of interpretation. Electronically Signed on 05-04-2020 9:02:54 EST by Aditya Jin
--- NOTE | 2020-05-04 10:20 | IPNPDOC ---
Date Seen The patient was seen on 05/04/20. Progress Note SUBJECTIVE: patient was seen and examined at bedside. Doing well, she is AAO x 2-3. Denies any pain. No fevers, no chills, no n/v/d, no chest pain, palpitations or SOB. OBJECTIVE VITAL SIGNS: please see below General: NAD, comfortable HEENT: PERRLA, EOMI, sclerae clear Neck: supple, normal ROM, no JVD Respiratory: lungs CTAB, no wheeze, no rales, no crackles CVS: RRR, normal S1, S2, no murmurs Abdo: soft, no masses, no hepatosplenomegaly, BS+, no rebound tenderness Extremities: no edema, pulses 2+ MSK: Right hip painful to manipulation. No edema. No cyanosis. Pulses intact. Neuro: no focal neuro deficits, moving all 4 extremities, CN2-12 intact. Strength 5/5 in all 4 extremities. No nystagmus. Psych: calm, cooperative, AAO x 2-3 LABORATORY DATA, IMAGING STUDIES, MICROBIOLOGY: Please see below. X-ray impressions 05/03/2020: Right femoral neck fracture with superior displacement of the right femoral shaft. DVT prophylaxis ordered?: Y 75-year-old female who was seen at the orthopedics clinic by Dr. Ware complaining of right hip pain with x-rays in office showing right femoral neck fracture. Patient was directly admitted to the hospital by her surgeon for surgery. Hospitalist service consulted for medical clearance and optimization. # Right femoral neck fracture: EKG reviewed, NSR. Management/surgery per orthopedic. Chung score for cardiac risk 0.2-0.4%, NSQIP ACS risk for serious complication 2.4%. Patient has not acute or chronic issues which preclude her from orthopedic surgery. #Hyponatremia: Na 129. possible SIADH given use of antipsychotics. Stop LR. trial of NaCl, but mainstay will be fluid restriction and salt tabs. Follow up urine sodium, urine osm, FeNa. Repeat BMP # CKD stage III: Appears to be at baseline. Avoid nephrotoxins. # DM: ISS. Frequent Accu-Cheks. Hypoglycemic precautions. Fu A1C, lipid panel. #Anemia: Hgb 10.8, dropped to 9.6, suspect a component of dilution. Check iron panel. Check fecal occult blood. # COPD not on home oxygen: Not in exacerbation. Continue home inhalers # MDD: Continue home meds # Hypothyroidism: Continue Synthroid # Dementia predominance of short-term memory loss: Bedside window, frequent reorientation # Lung cancer: Follow up with her oncologist and law office receptionist at [facility] upon discharge # DVT prophylaxis: Heparin VS, I&O, 24H, Fishbone Vital Signs/I&O Vital Signs Date Time Temp Pulse Resp B/P (MAP) Pulse Ox O2 Delivery O2 Flow Rate FiO2 05/04/20 06:09 16 05/04/20 05:50 98.9 88 130/64 (86) 95 Room Air I&O- Last 24 Hours up to 6 AM 05/04/20 06:00 Intake Total 720 ml Output Total 0 ml Balance 720 ml Laboratory Data 24H LABS Laboratory Tests 2 05/03/20 14:34: Coronavirus (COVID-19)(PCR) NEGATIVE 05/03/20 15:30: Nucleated Red Blood Cells % (auto) 0.0, Anion Gap 8, Glomerular Filtration Rate > 60.0, Calcium Level 9.1, WM-Quo-R-Type Natriuretic Peptide 170 05/03/20 16:36: Bedside Glucose (Misc Panel) 107 05/03/20 20:13: Bedside Glucose (Misc Panel) 119H 05/04/20 07:08: Nucleated Red Blood Cells % (auto) 0.0, Anion Gap 6L, Glomerular Filtration Rate > 60.0, Calcium Level 8.6L, Magnesium Level 2.0, Total Bilirubin 0.4, Aspartate Amino Transf (AST/SGOT) 46H, Alanine Aminotransferase (ALT/SGPT) 38, Alkaline Phosphatase 111, Total Protein 5.0L, Albumin 2.2L, Albumin/Globulin Ratio 0.8L CBC/BMP Laboratory Tests 05/03/20 15:30 05/04/20 07:08 ELIZABETH SAUCEDA MD May 04, 2020 10:20
[2020-05-04 11:32] LABS: CHOLESTEROL LEVEL 123 MG/DL (<200); CHOLESTEROL RISK RATIO 2.236 (<5); HDL CHOLESTEROL 55 MG/DL (>40); IRON (FE) 30 UG/DL (50-170); LDL CHOLESTEROL 57 MG/DL (<100); NON-HDL-C 68 MG/DL; PERCENT SATURATION 20.4 % (13.2-45.0); TOTAL IRON BINDING CAPACITY 147 UG/DL (250-450); TRIGLYCERIDES LEVEL 57 MG/DL (<150)
[2020-05-04 12:55] LABS: HEMOGLOBIN A1c 5.7 %
[2020-05-04 14:00] VITALS: BP 121/62
[2020-05-04 14:21] LABS: FREE T4 1.23 NG/DL (0.76-1.46)
[2020-05-04] MEDS ORDERED: ceFAZolin 1GM VIAL (J0690 PER 500MG) As Ordered ONE (16:01)
[2020-05-04] MEDS ORDERED: LIDOCAINE 2% 100MG/5ML SDV (FOR ANES.) As Ordered ONE (16:50)
[2020-05-04] MEDS ORDERED: MIDAZOLAM INJ 2MG/2ML VIAL (J2250 PER 1MG) As Ordered ONE (16:50)
[2020-05-04] MEDS ORDERED: propofoL 200 MG/20 ML VIAL As Ordered ONE (16:50)
[2020-05-04] MEDS ORDERED: fentaNYL 100 MCG/2 ML INJECTION (J3010) As Ordered ONE ×2 (16:51→19:34)
[2020-05-04] MEDS ORDERED: ceFAZolin 2 GM/D5W 50 ML IV BAG (J0690 PER 500MG) As Ordered ONE (17:06)
[2020-05-04] MEDS ORDERED: EPINEPHrine INJ 1 MG/ML 1ML AMP As Ordered ONE ×2 (17:06→18:03)
[2020-05-04] MEDS ORDERED: TRANEXAMIC ACID 100 MG/ML 10ML VIAL As Ordered ONE (18:03)
[2020-05-04] MEDS ORDERED: BUPIVACAINE LIPOSOME/PF 1.3% 20ML VIAL (13.3MG/ML)(EXPAREL)(C9290 PER1MG) As Ordered ONE (18:29)
[2020-05-04] MEDS ORDERED: BUPIVACAINE HCL 0.5% 10ML VIAL As Ordered ONE (18:29)
[2020-05-04] MEDS ORDERED: BUPIVACAINE HCL 0.25% 10ML VIAL As Ordered ONE (18:31)
[2020-05-04] MEDS ORDERED: ROCURONIUM BROMIDE 50 MG/5 ML VIAL As Ordered ONE (18:52)
[2020-05-04] MEDS ORDERED: ONDANSETRON 4MG/2ML VIAL As Ordered ONE ×2 (18:52→19:20)
[2020-05-04] MEDS ORDERED: ACETAMINOPHEN 1000MG 100ML IV BTL (OFIRMEV) (J0131 PER 10MG) As Ordered ONE (18:52)
[2020-05-04] MEDS ORDERED: dexameTHASONE 4 MG/ML 1ML VIAL (J1100 PER 1MG) As Ordered ONE (18:52)
[2020-05-04] MEDS ORDERED: METOCLOPRAMIDE INJ 10MG/2ML VIAL (J2765 PER 1) As Ordered ONE (18:52)
[2020-05-04] MEDS ORDERED: oxyCODONE 5MG TAB As Ordered ONE (19:20)
[2020-05-04] MEDS ORDERED: PERCOCET 5MG/325MG TAB PO PRN (19:30)
[2020-05-04] MEDS ORDERED: ACETAMINOPHEN TAB 650MG DOSE (2X325MG) PO PRN (19:30)
[2020-05-04] MEDS ORDERED: LR 1,000 ML IV SCH ×2 (19:30→19:45)
[2020-05-04] MEDS ORDERED: MORPHINE 4 MG/ML 1ML VIAL/SYRINGE (J2270) IV PRN (19:30)
[2020-05-04] MEDS ORDERED: MORPHINE 2 MG/ML 1ML VIAL (J2270) IV PRN (19:30)
[2020-05-04] MEDS ORDERED: ONDANSETRON 4MG/2ML VIAL IV PRN ×2 (19:30→19:45)
[2020-05-04] MEDS ORDERED: fentaNYL 100 MCG/2 ML INJECTION (J3010) IV PRN (19:45)
[2020-05-04] MEDS ORDERED: HYDROMORPHONE HCL 0.5 MG/ 0.5 ML SYRINGE (J1170 PER 1) IV PRN (19:45)
[2020-05-04] MEDS ORDERED: oxyCODONE 5MG TAB PO PRN (19:45)
--- NOTE | 2020-05-04 19:57 | REP ---
INDICATION: POST OP PLACEMENT. COMPARISON: 05/03/2020. TECHNIQUE: Two portable views right hip performed. FINDINGS: There has been placement of a metallic prosthesis in the proximal right femur. The osseous structures are intact and there is good alignment. Metallic skin ileana are seen laterally. IMPRESSION: Placement of metallic prosthesis proximal right femur, in good position. <Electronically signed by Luis M Chatman > 05/04/20 1953
[2020-05-04 20:20] VITALS: BP 113/56
[2020-05-04 20:50] VITALS: BP 116/52
[2020-05-04 21:30] VITALS: BP 127/71
[2020-05-04] MEDS: SERTRALINE 100 MG TAB PO SCH (21:35)
[2020-05-04] MEDS: OLANZapine 5 MG TAB PO SCH (21:35)
[2020-05-04] MEDS: ZIPRASIDONE 80 MG CAP (GEODON) PO SCH (21:36)
[2020-05-04] MEDS: TOPIRAMATE (TopAMAX) 100 MG TAB PO SCH (21:36)
--- NOTE | 2020-05-04 21:42 | ECGEPIP ---
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 No significant change compared with 05/03/2020. Electronically Signed on 05-04-2020 21:42:37 EST by Aditya Jin
[2020-05-04 22:30] VITALS: BP 125/69
[2020-05-05] VITALS (8 sets, daily range): BP systolic 96–148; BP diastolic 55–88
--- NOTE | 2020-05-05 01:26 | IPNPDOC ---
Subjective Date Seen The patient was seen on 05/05/20. Subjective Chief Complaint/HPI s/p R NATHALY Events since last encounter The orthopedics team asked me to see Ms. Kaur after her surgery. Nursing reported she was doing well once she got to the floor. She has voided already. There are no acute complaints. Constitutional: Denies: Chills Pulmonary: Denies: Dyspnea, Cough Cardiovascular: Denies: Chest Pain, Palpitations Gastrointestinal: Denies: Nausea, Vomiting Genitourinary: Denies: Dysuria Musculoskeletal: Reports: Joint Pain (hip pain on the operated side) Psych: Reports: Mood Normal Objective Physical Examination General Exam: Positive: Cooperative, No Acute Distress (she was resting when I entered her room, but was easily arousable) Eye Exam: Positive: PERRLA, Conjunctiva & lids normal; Negative: Sclera icteric ENT Exam: Positive: Mucous membr. moist/pink Neck Exam: Negative: Lymphadenopathy Chest Exam: Positive: Clear to auscultation, Normal air movement Heart Exam: Positive: Rate Normal, Normal S1, Normal S2; Negative: Murmurs Abdomen Exam: Positive: Normal bowel sounds, Soft; Negative: Tenderness Extremity Exam: Positive: Normal pulses, Tenderness (over the right hip. Dressing is clean dry and intact); Negative: Cyanosis Psych Exam: Positive: Mood NL Assessment /Plan Problems (1) History of total right hip arthroplasty Discussed With: Nurse, Patient Problem Specific Plan: Monitor Clinically Problem Text: This is the day of procedure for her. She is doing well after recovery. She has voided already. Orthopedics are managing rehabilitation, pain, bowel care, and anticoagulation. (2) Acute blood loss anemia Problem Specific Plan: Monitor Clinically, Repeat Labs Problem Text: She had a history of anemia of chronic disease/inflammatory anemia, so this is acute on chronic anemia. Her hemoglobin is down a little but not to a transfusable range. Does not appear to be having significant postoperative bleeding. We'll continue to monitor. (3) CKD (chronic kidney disease) stage 3, GFR 30-59 ml/min Problem Specific Plan: Repeat Labs Problem Text: We don't have labs from after her procedure to verify her kidney function. As she is clinically stable, we can wait until the morning. Continue current regimen, monitor. (4) Type 2 diabetes mellitus Problem Text: She has Accu-Cheks and sliding scale insulin coverage ordered. This should work for now. As she recovers and her appetite improves we may need to make other adjustments. (5) COPD (chronic obstructive pulmonary disease) Status: Chronic Problem Specific Plan: Monitor Clinically Problem Text: Her breathing appears to be stable in the postoperative period. There are no exam findings of concern. Continue current regimen, monitor. Plan/VTE VTE Prophylaxis Ordered?: Yes (Xarelto per orthopedics) VS, I&O, 24H, Fishbone Vital Signs/I&O Vital Signs Date Time Temp Pulse Resp B/P (MAP) Pulse Ox O2 Delivery O2 Flow Rate FiO2 05/05/20 00:02 97.5 85 16 141/75 (97) 100 Nasal Cannula 1.0 I&O- Last 24 Hours up to 6 AM 05/05/20 06:00 Intake Total 1075 ml Output Total 0 ml Balance 1075 ml Laboratory Data 24H LABS Laboratory Tests 2 05/04/20 07:08: Nucleated Red Blood Cells % (auto) 0.0, Anion Gap 6L, Glomerular Filtration Rate > 60.0, Estimated Mean Plasma Glucose 117H, Hemoglobin A1c 5.7, Calcium Level 8.6L, Magnesium Level 2.0, Iron Level 30L, Total Iron Binding Capacity 147L, Transferrin % Saturation 20.4, Total Bilirubin 0.4, Aspartate Amino Transf (AST/SGOT) 46H, Alanine Aminotransferase (ALT/SGPT) 38, Alkaline Phosphatase 111, Total Protein 5.0L, Albumin 2.2L, Albumin/Globulin Ratio 0.8L, Triglycerides Level 57, Total Cholesterol 123, LDL Cholesterol 57, Non-HDL Cholesterol (LDL + VLDL) 68, Total HDL Cholesterol 55, Cholesterol/HDL Ratio 2.236, Thyroid Stimulating Hormone (TSH) 7.060H, Free Thyroxine 1.23 05/04/20 11:06: Bedside Glucose (Misc Panel) 82L 05/04/20 21:03: Bedside Glucose (Misc Panel) 100 CBC/BMP Laboratory Tests 05/04/20 07:08 Tae Lan MD May 05, 2020 01:26
[2020-05-05] MEDS: ceFAZolin SOD 2 GM in IV 1 EA IV SCH ×2 (03:34→09:02)
[2020-05-05] MEDS: LEVOTHYROXINE 150MCG TABLET (0.15MG) PO SCH (05:56)
[2020-05-05] MEDS ORDERED: PERCOCET 5MG/325MG TAB PO PRN (06:00)
[2020-05-05 06:46] LABS: BASO % 0.1 % (0.0-1.0); LYMPH # 0.5 10^3/uL (1.5-5.0); LYMPH % 4.6 % (24.0-44.0); MEAN CORPUSCULAR HEMOGLOBIN 32.6 pg (27.0-33.0); MEAN CORPUSCULAR HGB CONC 32.1 g/dl (32.0-36.5); MEAN CORPUSCULAR VOLUME 101.4 fl (80.0-96.0); MONO # 0.6 10^3/uL (0.0-0.8); MONO % 5.8 % (0.0-5.0); NEUTROPHILS # 9.2 10^3/uL (1.5-8.5); NEUTROPHILS % 88.7 % (36.0-66.0); PLATELET COUNT, AUTOMATED 162 10^3/uL (150-450); RED BLOOD COUNT 2.76 10^6/uL (4.00-5.40); WHITE BLOOD COUNT 10.3 10^3/uL (4.0-10.0)
[2020-05-05 07:05] LABS: BLOOD UREA NITROGEN 20 MG/DL (7-18); CALCIUM LEVEL 8.2 MG/DL (8.8-10.2); CARBON DIOXIDE LEVEL 21 MEQ/L (21-32); CHLORIDE LEVEL 101 MEQ/L (98-107); CREATININE FOR GFR 0.86 MG/DL (0.55-1.30); GLOMERULAR FILTRATION RATE > 60.0 (>39); GLUCOSE, FASTING 106 MG/DL (70-100); POTASSIUM SERUM 4.3 MEQ/L (3.5-5.1); SODIUM LEVEL 132 MEQ/L (136-145)
[2020-05-05] MEDS ORDERED: NS 1,000 ML IV SCH (07:45)
--- NOTE | 2020-05-05 08:07 | RO ---
OPERATIVE NOTE DATE OF PROCEDURE: 05/04/2020 PREOPERATIVE DIAGNOSIS: Right hip femoral neck fracture, displaced. POSTOPERATIVE DIAGNOSIS: Right hip femoral neck fracture, displaced. PROCEDURE: Right hip hemiarthroplasty cemented size 3 [place], minus 3 neck, 44 head. SURGEON: Mart Ware M.D. GATEKEEPER: OLAF Trent ANESTHESIA: Spinal followed by general. ESTIMATED BLOOD LOSS: 200. COMPLICATIONS: None. INDICATIONS: This is a 75-year-old woman who fractured her hip at some point probably in the last couple of weeks. It was unclear as to what the story was or if and when she fell but at one point a couple weeks ago, she fell in the bathroom, her son says and may have broken her hip at that point. She has also had a fairly recent left total hip arthroplasty. She wished to go ahead with surgical treatment as did the son. They understood the nature of the procedure. They understood I would plan on doing a hemiarthroplasty as opposed to a total hip because there was not significant arthritis on this hip and they understood the nature of this, the risks of bleeding, infection, damage to nerves, vessels, persistent pain, wear loosening, dislocation, leg length inequality, blood clots, medical problems, among others. Preop clearance was obtained. She did have significant shortening of this extremity preoperatively and I explained to them that it may be difficult to regain that. Oftentimes with the soft tissue contractures, that can be very challenging. PROCEDURE: The patient was taken to the operating room and placed in left lateral decubitus position after general anesthesia was induced. The right hip was prepped and draped in the usual sterile fashion. She was placed on the Karnack positioner. All areas were padded appropriately. Once the right hip was prepped and draped in the usual sterile fashion, a timeout was performed. A longitudinal incision was made over the lateral the aspect of the hip and sharp dissection was carried down through the copious subcutaneous tissue until the fascia was encountered. I then incised the fascia. There was some bruising evident. I identified the abductors. The trochanter was largely bare. Much of the posterior abductor had pulled off, some of the anterior as well and this appeared to be chronic. I then split the abductor proximally just above the trochanter and then gradually externally rotated the femur as we exposed the proximal femur down to the level of the lesser trochanter. We put the leg in the bag and then made the proximal cut after I used the canal initiating reamer, the canal finding reamer and the lateralizing reamer and the proximal cut was made just proximal to the lesser trochanter because I wanted to be able to reduce the hip so I took a little bit extra off the proximal femur than sometimes I would. The hip was then broached. I got up to a size 3 which fit very nicely. There was no calcar planing necessary. There was some evidence that she had fractured the tip of her trochanter and there were some fragments of bone that had to be removed. There was still some attachment of the very posterior aspect of the abductor. I then removed the femoral head with the corkscrew. It sized to be a 44. I made sure there was no fragmentation or loose material in the acetabulum. I then trialed the components with a -3, 44 head and reduced this. It was a little bit on the tight side which I anticipated with the tissue tension being slightly tight but overall reasonable and I put the hip through the hip through a range of motion. She had excellent stability and range of motion. There was minimal shuck in full extension and I could gain full extension. The hip was then dislocated. I then removed the trial components and prepared the actual canal. I irrigated copiously, placed the cement restrictor size 3 at the appropriate distance down the canal, then irrigated and brushed the canal, placed the epinephrine soaked sponges down the canal and let them sit for a minute. The assistant professor of physics prepared the bone cement in the modern technique. I then placed dry sponges down the canal and once the cement was of appropriate consistency, a retrograde filled the canal and then pressurized it and then inserted the size 3 summit cemented stem. This was held in place until the cement had hardened. The anteversion was basically dialed in by the anatomy. Once the cement hardened and I had removed excellent bone cement, I made sure there was nothing in the acetabulum. I impacted in the actual size 44, -3 neck and then reduced the hip. I again put the hip through a range of motion. She seemed to be quite stable and there was minimal shuck in full extension. I felt that there was no way to go any longer and able to reapproximate tissues and gain full extension. I then copiously irrigated as I had multiple times. I placed a TXA deep in the wound, repaired the minimus with #1 Vicryl suture and then I spent a great deal of time trying to repair the abductor, what was left of it with several stitches being placed through the bone. The anterior abductor was actually fairly healthy and I was able to get pretty good bites on that. I tried to bring some of the posterior abductor across and close the interval above the trochanter. I then irrigated, closed the fascia mariya with #1 Vicryl suture and running Stratafix suture in both directions. I then injected the Exparel and Marcaine deep in the tissues. I irrigated, closed the subcu with a double-ended Stratafix because it was a deep layer and this was to close space. I irrigated each level, closed the subcu with 2-0 Vicryl and the skin with ileana. A sterile dressing was applied. She was taken to the recovery room in stable condition. There were no known complications. The plan will be routine postop, will allow weightbearing as tolerated. The assistant professor of physics was instrumental in holding retractors and assisting in reducing and dislocating the hip and assisting in wound closure and assisting in mixing the bone cement.
[2020-05-05] MEDS: HumaLOG INSULIN (NovoLOG) PER UNIT SC SCH ×4 (09:01→20:07)
[2020-05-05] MEDS: SIMVASTATIN 40 MG TAB PO SCH (09:02)
[2020-05-05] MEDS: BRIMONIDINE 0.15% OPHTH SOLN 5 ML OU SCH ×2 (09:02→20:07)
[2020-05-05] MEDS: DOCUSATE SODIUM 100MG CAPSULE PO SCH ×2 (09:02→20:06)
[2020-05-05] MEDS: HEPARIN SOD (PORCINE) 5000UNITS/ML 1ML VIAL/SYRINGE SQ SCH (09:09)
[2020-05-05 13:09] LABS: OSMOLALITY URINE 406 MOSM/KG (500-800)
[2020-05-05 13:32] LABS: SODIUM,RANDOM URINE < 10 MEQ/L
[2020-05-05] MEDS ORDERED: XARE10TA PO ×2 (16:08→21:57)
[2020-05-05] MEDS ORDERED: PERC5TAB12 PO (16:08)
[2020-05-05] MEDS ORDERED: SODIUM CHLORIDE 0.9% INJ 10 ML SYR IV PRN (18:00)
[2020-05-05] MEDS ORDERED: RIVAROXABAN 10 MG TAB (XARELTO) PO SCH (18:00)
[2020-05-05] MEDS: TOPIRAMATE (TopAMAX) 100 MG TAB PO SCH (20:06)
[2020-05-05] MEDS: SERTRALINE 100 MG TAB PO SCH (20:06)
[2020-05-05] MEDS: ZIPRASIDONE 80 MG CAP (GEODON) PO SCH (20:06)
[2020-05-05] MEDS: OLANZapine 5 MG TAB PO SCH (20:06)
[2020-05-05] MEDS ORDERED: OXYC1TAB23 PO (21:57)
[2020-05-06] MEDS ORDERED: SODIUM CHLORIDE 0.9% INJ 10 ML SYR IV SCH (09:00)
== END 2020-05-05 20:20 | disposition home or self-care (01) | DRG 522 ==
LOC: M SDC 13:21 → M MS5PR 13:28 → M SDC 05-04 07:17 → M MS5PR 05-04 07:18
PROVIDERS: ADMIT Internal Medicine; ATTEND Orthopaedic Surgery
PROC: 0SRR0J9 Replacement of Right Hip Joint, Femoral Surface with Synthetic Substitute, Cemented, Open Approach (ICD-10-PCS; principal; 2020-05-04 14:00)
DX: S72.001A Fracture of unspecified part of neck of right femur, initial encounter for closed fracture (principal); E87.1 Hypo-osmolality and hyponatremia; D62 Acute posthemorrhagic anemia; C34.90 Malignant neoplasm of unspecified part of unspecified bronchus or lung; N18.30 Chronic kidney disease, stage 3 unspecified; J44.9 Chronic obstructive pulmonary disease, unspecified; E03.9 Hypothyroidism, unspecified; F03.90 Unspecified dementia, unspecified severity, without behavioral disturbance, psychotic disturbance, mood disturbance, and anxiety; Z96.642 Presence of left artificial hip joint; Z96.651 Presence of right artificial knee joint; W18.30XA Fall on same level, unspecified, initial encounter; Y92.009 Unspecified place in unspecified non-institutional (private) residence as the place of occurrence of the external cause; Z87.891 Personal history of nicotine dependence; F32.9 Major depressive disorder, single episode, unspecified; Z79.899 Other long term (current) drug therapy; Z88.2 Allergy status to sulfonamides; M81.0 Age-related osteoporosis without current pathological fracture

== ENCOUNTER 2020-05-05 15:54 | Inpatient (IN) | payer MEDICARE, BC, OTHER ==
[~2020-05-05] VITALS: Ht 165.1 cm; Wt 73.0 kg
[~2020-05-05 15:54] MED LIST changes: +BRIM2OPD OU; +CALC600T27 PO; +COMBAER6 INH; +EZET1TAB8 PO; +LEVO150T7 PO; +MIRA3350 PO; +NEXI40GR PO; +OLAN15TA PO; +POTA4.25 PO; +RALO1TAB PO; +SERT-138 PO; +TOPI100T9 PO; +ZIPR80CA12 PO
[2020-05-05] MEDS ORDERED: XARE10TA PO ×2 (16:08→21:57)
[2020-05-05] MEDS ORDERED: PERC5TAB12 PO (16:08)
[2020-05-05] MEDS ORDERED: GLUCOSE 4GM CHEW TABLET PO PRN (18:00)
[2020-05-05] MEDS ORDERED: GLUCAGON INJ 1MG VIAL SC PRN (18:00)
[2020-05-05] MEDS ORDERED: DEXTROSE 50% 50 ML SYRINGE IV PRN (18:00)
--- NOTE | 2020-05-05 18:25 | HPEPDOC ---
Financial Compliance Officer Note DATE OF ADMISSION: 05-05-20 DATE OF SERVICE: 05-06-20 TIME OF ADMISSION: Please refer to physician's admission order. SOURCE OF ADMISSION INFORMATION: [facility] record and patient CHIEF COMPLAINT:right hip fracture HISTORY OF PRESENT ILLNESS: 75 F pmh CKD3, DM2, COPD not on home 02, dementia, lung cancer, major depressive disorder, s/p left hip THR performed December 2019, who had a fall at home and presented after a few weeks of difficulty ambulating and noted by orthopedics at an outpatient visit to have a right side hip fracture with X-rays on 05-03-20 showing " Right femoral neck fracture with superior displacement of the right femoral shaft". She was cleared by medicine and underwent a right sided hip he miarthroplasty on 05-05-20. She was noted to be anemic prior to surgery and required supplemental oxygen. She was evaluated by therapy, found to have impairments in mobility and ADLs and deemed medically appropriate for discharge to ARU on 05-05-20. REVIEW OF SYSTEMS: The following is a completed review of systems and has been reviewed. Review of systems otherwise unremarkable. PAIN: Patient self reports right hip pain EYES: No recent vision changes EARS, NOSE, & THROAT: No throat pain, or dysphagia, or rhinorrhea, +sinus congestion CARDIOVASCULAR: Denies chest pain or palpitations PULMONARY: Denies shortness of breath GASTROINTESTINAL: Denies constipation/diarrhea GENITOURINARY: denies dysuria MUSCULOSKELETAL: s/p right hip fracture NEUROLOGICAL:denies paresthesias HEMATOLOGICAL: +anemia SKIN: right hip incuision PSYCHIATRIC: Unremarkable All other review of systems found to be negative. PAST MEDICAL HISTORY: as per HPI PAST SURGICAL HISTORY: As per HPI and , hysterectomy, right TKR ALLERGIES: Please see below. MEDICATIONS: Please see below. FAMILY HISTORY: Lung cancer, DM, CVA, cardiac SOCIAL HISTORY: No etoh/illicit drugs/smoking DIET:low sodium PHYSICAL EXAMINATION: VITAL SIGNS: Please see below. GENERAL: Pleasant and cooperative. No acute distress. HEENT: PERRL. Extraocular movements intact. Clear conjunctiva CARDIOVASCULAR: Regular rate and rhythm. No murmurs, rubs, or gallops, + chest wall port LUNGS: +scattered wheeze ABDOMEN: Soft, nontender, nondistended. Positive bowel sounds. Normal active bowel sounds NEUROLOGICAL: Alert and oriented to self and time not able to name president Cranial nerves II through XII grossly intact. Sensation grossly intact including 1st dorsal webspace right foot EXTREMITIES: 5-\\5 strength bilateral upper extremities. 5-/5 right ankle DF and PF (exam limited due to surgery), 4+/5 LLE SKIN: right hip incision with scant serous drainage, no induration LABORATORY DATA: Please see below. IMAGING:Imaging documentation personally reviewed by record FUNCTIONAL STATUS: Premorbid: Modified-Independent with all activities of daily life as well as mobility with a RW On Admission: stand-by assist for ambulation x 10F, Contact guard-Min assist for bed mobility, dressing, toileting GOALS: Mod-I household distances, functional transfers, dressing, toileting, bathing ASSESSMENT:75-year-old F with past medical history of left hip fracture who presents status post right hip fracture PLAN: 1. rehab- PT/OPT advance gait and ADLs, strengthen/stretch/maintain ROM all 4limbs 2. ortho s/p right hip hemiarthropalsty, WBAT with posterolateral hip precautions, ortho consulted 3. 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 GI ppx- protonix 6. VT ppx- Xarelto and teds 7. Pain- tylenol and oxyodone prn 8. Psych- depressopn- c/u geodon, olanzapine, and sertraline 9. Heme- post-op anemia with Hgb 7.7 will discuss transfusion with patient 10. Dispo- TBD POST ADMISSION PHYSICIAN EVALUATION: Medical and functional status: Description of medical status, medical assessment: As above. Rehabilitation diagnosis and current and prior cold morbid medical conditions as above. Risk of complications and plans to mitigate them as above. Description of functional status current status is as above. Prior status as above. Status compared to preadmission: There are no clinically significant differences between the patient's current status and the information described on the pre admission screening document. Treatment plan anticipated: Treatment plan is as described above. Required disciplines including physical therapy, occupational therapy, others as noted above. Intensity of services: 3 hours a day, 6 days a week. Special considerations: There are no specific special or safety considerations that would likely preclude immediate implementation of an intensive rehabilitation program or subsequently influence the plan of care. ATTESTATION: Considering all the information above, it is my best judgment that this patient requires intensive rehabilitation therapy as described above and an inpatient hospital environment due to the complexity of nursing, medical, and rehabilitation needs required by the patient. Furthermore, this patient can reasonably be expected to participate in an benefit from an inpatient rehabilitation stay with an interdisciplinary team approach to the delivery of rehabilitation care under the direction and supervision of rehabilitation physician. PROGNOSIS: Excellent ESTIMATED LENGTH OF STAY:10-14 days. PROJECTED DISCHARGE DESTINATION: Home with family support and any durable medical equipment required to increase functional safety and mobility. TIME SPENT COUNSELING AND COORDINATING INITIAL CARE: Greater than 70 minutes. Vital Signs Vital Signs Date Time Temp Pulse Resp B/P (MAP) Pulse Ox O2 Delivery O2 Flow Rate FiO2 05/05/20 20:40 98.6 87 18 112/54 (73) 97 Room Air Home Medications Scheduled Brimonidine Tartrate (Brimonidine Tartrate) 0.15% 5ML Drops, 1 DROP OU BID, (Reported) Calcium Carbonate/Vitamin D3 (Calcium 600-Vit D3 400 Tablet) 1 Each Tablet, 2 TAB PO DAILY, (Reported) TAKES AT NOON Esomeprazole Magnesium (Nexium) 40 Mg Suspdr.pkt, 40 MG PO DAILY, (Reported) NEW MED, NOT STARTED YET Ezetimibe/Simvastatin (Ezetimibe-Simvastatin 10-40 mg) 1 Each Tablet, 1 TAB PO QHS, (Reported) Levothyroxine Sodium (Levothyroxine Sodium) 150 Mcg Tablet, 150 MCG PO QAM, (Reported) Olanzapine (Olanzapine) 15 Mg Tablet, 15 MG PO QHS, (Reported) Potassium Citrate (Potassium Citrate ER) 15 Meq Tablet.er, 15 MEQ PO BID, (Reported) TAKES AT NOON/QHS Raloxifene HCl (Raloxifene HCl) 60 Mg Tablet, 60 MG PO QHS, (Reported) Rivaroxaban (Xarelto) 10 Mg Tablet, 10 MG PO QPM, (Reported) TAKES AT 1800 Sertraline HCl (Sertraline HCl) 100 Mg Tablet, 200 MG PO QHS, (Reported) Topiramate (Topiramate) 100 Mg Tablet, 200 MG PO QHS, (Reported) Ziprasidone HCl (Ziprasidone HCl) 80 Mg Capsule, 80 MG PO QHS, (Reported) Scheduled PRN Ipratropium/Albuterol Sulfate (Combivent Respimat 20-100 Mcg) 4 Gm Mist.inhal, 1 PUFF INH QID PRN for SOB/WHEEZING, (Reported) Oxycodone HCl/Acetaminophen (Oxycodone-Acetaminophen 5-325) 1 Each Tablet, 1 TAB PO Q4H PRN for PAIN, (Reported) CAN HAVE SECOND TAB PER DOSE Polyethylene Glycol 3350 (Miralax) 119 Gm Powder, 17 GM PO DAILY PRN for CONSTIPATION, (Reported) Allergies Coded Allergies: Sulfa (Sulfonamide Antibiotics) (Verified Allergy, Intermediate, HIVES, 02/16/20) A-FIB/CHADSVASC A-FIB History Current/History of A-Fib/PAF?: No Current PO Anticoag Therapy: No CHARU LOVELL MD May 05, 2020 18:25
[2020-05-05] MEDS: IPRATROPIUM 0.5MG/ALBUTEROL 2.5MG INH SOL UD 3ML (DUONEB) NEB SCH (20:00)
[2020-05-05 20:40] VITALS: BP 112/54
[2020-05-05] MEDS: REMEDY PHYTOPLEX Z-GUARD PASTE 113GM TUBE (FROM STOREROOM PRODUCT) TOP SCH (21:00)
[2020-05-05] MEDS: DOCUSATE SODIUM 100MG CAPSULE PO SCH (21:00)
[2020-05-05] MEDS: HumaLOG INSULIN (NovoLOG) PER UNIT SC SCH (21:00)
[2020-05-05] MEDS: SENNA 8.6 MG TAB (SENOKOT) PO SCH (21:57)
[2020-05-05] MEDS: ACETAMINOPHEN 500 MG TAB PO SCH (21:57)
[2020-05-05] MEDS ORDERED: OXYC1TAB23 PO (21:57)
[2020-05-05] MEDS: POTASSIUM CHLORIDE 10 MEQ SR TABLET PO SCH (21:57)
[2020-05-05] MEDS: EZETIMIBE 10 MG TAB (ZETIA) PO SCH (22:10)
[2020-05-06] VITALS (7 sets, daily range): BP systolic 108–130; BP diastolic 57–65
[2020-05-06] MEDS ORDERED: SODIUM CHLORIDE 0.9% INJ 10 ML SYR IV PRN (02:15)
[2020-05-06] MEDS: oxyCODONE 5MG TAB PO PRN ×2 (05:22→20:58)
[2020-05-06] MEDS: LEVOTHYROXINE 150MCG TABLET (0.15MG) PO SCH (06:00)
[2020-05-06] MEDS: HumaLOG INSULIN (NovoLOG) PER UNIT SC SCH ×4 (07:30→21:00)
[2020-05-06] MEDS: PANTOPRAZOLE 40MG TAB (PROTONIX) PO SCH (08:19)
[2020-05-06] MEDS: SIMVASTATIN 40 MG TAB PO SCH (08:19)
[2020-05-06] MEDS: CALCIUM/VITAMIN D 500 MG TAB PO SCH (08:19)
[2020-05-06] MEDS: POTASSIUM CHLORIDE 10 MEQ SR TABLET PO SCH ×2 (08:19→20:57)
[2020-05-06] MEDS: ACETAMINOPHEN 500 MG TAB PO SCH ×3 (08:20→20:58)
[2020-05-06] MEDS: BRIMONIDINE 0.15% OPHTH SOLN 5 ML OU SCH ×2 (08:20→21:02)
[2020-05-06] MEDS: SODIUM CHLORIDE 0.9% INJ 10 ML SYR IV SCH (08:20)
[2020-05-06] MEDS: REMEDY PHYTOPLEX Z-GUARD PASTE 113GM TUBE (FROM STOREROOM PRODUCT) TOP SCH ×3 (08:21→21:00)
[2020-05-06] MEDS: DOCUSATE SODIUM 100MG CAPSULE PO SCH ×2 (08:22→20:55)
[2020-05-06] MEDS: IPRATROPIUM 0.5MG/ALBUTEROL 2.5MG INH SOL UD 3ML (DUONEB) NEB SCH ×3 (08:29→19:23)
[2020-05-06] MEDS: FLUTICASONE PROP 0.05% NASAL SPRAY 16 GM (FLONASE) NARES SCH ×2 (09:00→21:02)
[2020-05-06] MEDS: SODIUM CHLORIDE NASAL 0.65% SPRAY BTL (OCEAN) SCH ×3 (09:00→21:02)
[2020-05-06 09:15] LABS: BASO % 0.1 % (0.0-1.0); EOS # 0.1 10^3/uL (0.0-0.5); EOS % 0.8 % (0.0-3.0); HEMATOCRIT 23.6 % (36.0-47.0); HEMOGLOBIN 7.7 g/dl (12.0-15.5); LYMPH # 0.7 10^3/uL (1.5-5.0); LYMPH % 8.9 % (24.0-44.0); MEAN CORPUSCULAR HEMOGLOBIN 32.6 pg (27.0-33.0); MEAN CORPUSCULAR HGB CONC 32.6 g/dl (32.0-36.5); MONO # 0.7 10^3/uL (0.0-0.8); MONO % 8.5 % (0.0-5.0); NEUTROPHILS # 6.3 10^3/uL (1.5-8.5); NEUTROPHILS % 81.2 % (36.0-66.0); PLATELET COUNT, AUTOMATED 154 10^3/uL (150-450); RED BLOOD COUNT 2.36 10^6/uL (4.00-5.40); WHITE BLOOD COUNT 7.8 10^3/uL (4.0-10.0)
[2020-05-06 09:47] LABS: BLOOD UREA NITROGEN 17 MG/DL (7-18); CALCIUM LEVEL 7.9 MG/DL (8.8-10.2); CARBON DIOXIDE LEVEL 23 MEQ/L (21-32); CHLORIDE LEVEL 103 MEQ/L (98-107); CREATININE FOR GFR 0.73 MG/DL (0.55-1.30); GLOMERULAR FILTRATION RATE > 60.0 (>39); GLUCOSE, FASTING 109 MG/DL (70-100); POTASSIUM SERUM 3.7 MEQ/L (3.5-5.1); SODIUM LEVEL 133 MEQ/L (136-145)
[2020-05-06] MEDS: ZIPRASIDONE 80 MG CAP (GEODON) PO SCH (17:10)
[2020-05-06] MEDS: RIVAROXABAN 10 MG TAB (XARELTO) PO SCH (17:10)
--- NOTE | 2020-05-06 19:11 | IPNPDOC ---
Text Note Date of Service The patient was seen on 05/06/20. NOTE Subjective: No any acute events overnight. Patient denied fever, chills, nausea, vomiting, diarrhea or dysuria Objective: GENERAL APPEARANCE: NAD HEENT: no scleral icterus, no JVD, EOMI CARDIOVASCULAR: S1S2 LUNGS: CTA ABDOMEN: soft & not tender w palpitation MUSCULOSKELETAL: no cyanosis, no swelling INTEGUMENT: no generalized palor NEUROLOGICAL: cranial nerve function from 2-12 intact intact, follows commands, speech not dysarthric 75-year-old female who was seen at the orthopedics clinic by Dr. Ware complaining of right hip pain with x-rays in office showing right femoral neck fracture. This surgery was done and patient was transferred to acute rehabi litation unit Status post Right femoral neck fracture PT/OT CKD stage III: Appears to be at baseline Continue to monitor DM: Diabetes diet Insulin sliding scale COPD Not in acute exacerbation MDD Continue home meds Hypothyroidism Continue Synthroid Dementia frequent reorientation Lung cancer: Follow up with her oncologist in the outpatient settings Normocytic anemia Will transfuse if hemoglobin less than 7 Stool for occult blood negative We'll check iron study, B12, folate VS,Fishbone, I+O VS, Fishbone, I+O Laboratory Tests 05/06/20 09:00 Vital Signs Date Time Temp Pulse Resp B/P (MAP) Pulse Ox O2 Delivery O2 Flow Rate FiO2 05/06/20 17:55 98.0 97 18 129/60 95 Room Air I&O- Last 24 Hours up to 6 AM 05/06/20 06:00 Intake Total 200 ml Output Total 550 ml Balance -350 ml DEVAUGHN LEMUS DO May 06, 2020 19:11
[2020-05-06 20:12] LABS: IRON (FE) 46 UG/DL (50-170); PERCENT SATURATION 40.7 % (13.2-45.0); TOTAL IRON BINDING CAPACITY 113 UG/DL (250-450)
[2020-05-06 20:25] LABS: VITAMIN B12 LEVEL 363 PG/ML
[2020-05-06 20:26] LABS: FOLATE 9.5 NG/ML
[2020-05-06] MEDS: SENNA 8.6 MG TAB (SENOKOT) PO SCH (20:55)
[2020-05-06] MEDS: SERTRALINE 100 MG TAB PO SCH (20:56)
[2020-05-06] MEDS: OLANZapine 10 MG TAB PO SCH (20:56)
[2020-05-06] MEDS: EZETIMIBE 10 MG TAB (ZETIA) PO SCH (20:56)
[2020-05-06] MEDS: TOPIRAMATE (TopAMAX) 100 MG TAB PO SCH (20:57)
[2020-05-07] MEDS: oxyCODONE 5MG TAB PO PRN ×2 (05:49→16:52)
[2020-05-07] MEDS: LEVOTHYROXINE 150MCG TABLET (0.15MG) PO SCH (05:49)
[2020-05-07 06:00] VITALS: BP 129/58
[2020-05-07] MEDS: IPRATROPIUM 0.5MG/ALBUTEROL 2.5MG INH SOL UD 3ML (DUONEB) NEB SCH ×3 (07:21→19:34)
[2020-05-07] MEDS: HumaLOG INSULIN (NovoLOG) PER UNIT SC SCH ×2 (07:30→11:51)
[2020-05-07 07:32] LABS: BASO % 0.1 % (0.0-1.0); EOS # 0.2 10^3/uL (0.0-0.5); HEMATOCRIT 25.3 % (36.0-47.0); HEMOGLOBIN 8.1 g/dl (12.0-15.5); LYMPH # 0.5 10^3/uL (1.5-5.0); LYMPH % 6.9 % (24.0-44.0); MEAN CORPUSCULAR HEMOGLOBIN 30.9 pg (27.0-33.0); MEAN CORPUSCULAR VOLUME 96.6 fl (80.0-96.0); MONO # 0.5 10^3/uL (0.0-0.8); MONO % 6.7 % (0.0-5.0); NEUTROPHILS # 6.4 10^3/uL (1.5-8.5); NEUTROPHILS % 83.5 % (36.0-66.0); PLATELET COUNT, AUTOMATED 146 10^3/uL (150-450); RED BLOOD COUNT 2.62 10^6/uL (4.00-5.40); WHITE BLOOD COUNT 7.6 10^3/uL (4.0-10.0)
[2020-05-07] MEDS: PANTOPRAZOLE 40MG TAB (PROTONIX) PO SCH (08:02)
[2020-05-07] MEDS: DOCUSATE SODIUM 100MG CAPSULE PO SCH ×2 (08:02→21:39)
[2020-05-07 08:03] LABS: BLOOD UREA NITROGEN 15 MG/DL (7-18); CALCIUM LEVEL 7.9 MG/DL (8.8-10.2); CARBON DIOXIDE LEVEL 25 MEQ/L (21-32); CHLORIDE LEVEL 107 MEQ/L (98-107); CREATININE FOR GFR 0.74 MG/DL (0.55-1.30); GLOMERULAR FILTRATION RATE > 60.0 (>39); GLUCOSE, FASTING 98 MG/DL (70-100); POTASSIUM SERUM 4.1 MEQ/L (3.5-5.1); SODIUM LEVEL 137 MEQ/L (136-145)
[2020-05-07] MEDS: SIMVASTATIN 40 MG TAB PO SCH (08:03)
[2020-05-07] MEDS: POTASSIUM CHLORIDE 10 MEQ SR TABLET PO SCH ×2 (08:03→21:39)
[2020-05-07] MEDS: ACETAMINOPHEN 500 MG TAB PO SCH ×3 (08:03→21:38)
[2020-05-07] MEDS: CALCIUM/VITAMIN D 500 MG TAB PO SCH (08:03)
[2020-05-07] MEDS: SODIUM CHLORIDE 0.9% INJ 10 ML SYR IV SCH (08:04)
[2020-05-07] MEDS: SODIUM CHLORIDE NASAL 0.65% SPRAY BTL (OCEAN) SCH ×3 (08:12→21:45)
[2020-05-07] MEDS: FLUTICASONE PROP 0.05% NASAL SPRAY 16 GM (FLONASE) NARES SCH ×2 (08:12→21:44)
[2020-05-07] MEDS: REMEDY PHYTOPLEX Z-GUARD PASTE 113GM TUBE (FROM STOREROOM PRODUCT) TOP SCH ×3 (08:13→21:46)
[2020-05-07] MEDS: BRIMONIDINE 0.15% OPHTH SOLN 5 ML OU SCH ×2 (08:13→21:45)
[2020-05-07] MEDS: FERROUS SULFATE 325MG TAB PO SCH ×2 (11:51→21:38)
[2020-05-07 14:00] VITALS: BP 134/62
[2020-05-07] MEDS: ZIPRASIDONE 80 MG CAP (GEODON) PO SCH (16:52)
[2020-05-07] MEDS: RIVAROXABAN 10 MG TAB (XARELTO) PO SCH (16:52)
[2020-05-07 20:15] VITALS: BP 140/62
[2020-05-07] MEDS: TOPIRAMATE (TopAMAX) 100 MG TAB PO SCH (21:38)
[2020-05-07] MEDS: SERTRALINE 100 MG TAB PO SCH (21:38)
[2020-05-07] MEDS: SENNA 8.6 MG TAB (SENOKOT) PO SCH (21:38)
[2020-05-07] MEDS: EZETIMIBE 10 MG TAB (ZETIA) PO SCH (21:38)
[2020-05-07] MEDS: OLANZapine 10 MG TAB PO SCH (21:39)
[2020-05-08] MEDS: LEVOTHYROXINE 150MCG TABLET (0.15MG) PO SCH (05:58)
[2020-05-08 06:06] VITALS: BP 145/65
[2020-05-08] MEDS: IPRATROPIUM 0.5MG/ALBUTEROL 2.5MG INH SOL UD 3ML (DUONEB) NEB SCH ×3 (07:17→21:17)
[2020-05-08] MEDS: CALCIUM/VITAMIN D 500 MG TAB PO SCH (09:34)
[2020-05-08] MEDS: DOCUSATE SODIUM 100MG CAPSULE PO SCH ×2 (09:34→20:47)
[2020-05-08] MEDS: SIMVASTATIN 40 MG TAB PO SCH (09:34)
[2020-05-08] MEDS: PANTOPRAZOLE 40MG TAB (PROTONIX) PO SCH (09:35)
[2020-05-08] MEDS: POTASSIUM CHLORIDE 10 MEQ SR TABLET PO SCH ×2 (09:35→20:49)
[2020-05-08] MEDS: FUROSEMIDE 20 MG TAB PO SCH (09:35)
[2020-05-08] MEDS: ACETAMINOPHEN 500 MG TAB PO SCH ×3 (09:35→20:50)
[2020-05-08] MEDS: FERROUS SULFATE 325MG TAB PO SCH ×2 (09:35→20:47)
[2020-05-08] MEDS: SODIUM CHLORIDE 0.9% INJ 10 ML SYR IV SCH (09:36)
[2020-05-08] MEDS: BRIMONIDINE 0.15% OPHTH SOLN 5 ML OU SCH ×2 (09:36→20:51)
[2020-05-08] MEDS: SODIUM CHLORIDE NASAL 0.65% SPRAY BTL (OCEAN) SCH ×3 (09:36→20:51)
[2020-05-08] MEDS: FLUTICASONE PROP 0.05% NASAL SPRAY 16 GM (FLONASE) NARES SCH ×2 (09:36→20:51)
[2020-05-08] MEDS: REMEDY PHYTOPLEX Z-GUARD PASTE 113GM TUBE (FROM STOREROOM PRODUCT) TOP SCH ×3 (09:37→20:52)
--- NOTE | 2020-05-08 13:13 | IPNPDOC ---
PM&R Progress Note DATE OF SERVICE: May 07, 2020 Esthetician Progress Note SUbjective: PAtient reporting her legs do feel swollen and that she has been on a diuretic in the past. She feels a little stronger after the blood transfusion. REVIEW OF SYSTEMS: The following is a completed review of systems and has been reviewed. Review of systems otherwise unremarkable. PAIN: Patient self reports right hip pain EYES: No recent vision changes EARS, NOSE, & THROAT: No throat pain, or dysphagia, or rhinorrhea, +sinus congestion CARDIOVASCULAR: Denies chest pain or palpitations PULMONARY: Denies shortness of breath GASTROINTESTINAL: Denies constipation/diarrhea GENITOURINARY: denies dysuria MUSCULOSKELETAL: s/p right hip fracture NEUROLOGICAL:denies paresthesias HEMATOLOGICAL: +anemia SKIN: right hip incuision PSYCHIATRIC: Unremarkable All other review of systems found to be negative. PHYSICAL EXAMINATION: VITAL SIGNS: Please see below. GENERAL: Pleasant and cooperative. No acute distress. HEENT: PERRL. Extraocular movements intact. Clear conjunctiva CARDIOVASCULAR: Regular rate and rhythm. No murmurs, rubs, or gallops, + chest wall port LUNGS: +scattered wheeze ABDOMEN: Soft, nontender, nondistended. Positive bowel sounds. Normal active bowel sounds NEUROLOGICAL: Alert and oriented to self and time not able to name president Cranial nerves II through XII grossly intact. Sensation grossly intact including 1st dorsal webspace right foot EXTREMITIES: 5-\5 strength bilateral upper extremities. 5-/5 right ankle DF and PF (exam limited due to surgery), 4+/5 LLE bilat LE edema, negative Hallie's SKIN: right hip incision with scant serous drainage, no induration ASSESSMENT:75-year-old F with past medical history of left hip fracture who presents status post right hip fracture PLAN: 1. rehab- PT/OPT advance gait and ADLs, strengthen/stretch/maintain ROM all 4limbs 2. ortho s/p right hip hemiarthropalsty, WBAT with posterolateral hip prec autions, ortho consulted 3. cardiac- hx of HTN c/u home meds, medicine consulted to assist in overall management -no recorded CHF, however patient with LE edema, will start low dose lasix, daily weights, 1800cc fluids, and c/u monitor -HLD- c/u home meds 4. resp- hx of COPD, c/u Duonebs, monitor for infection -flonase and NS nasal drops for sinus congestion 5. GI ppx- protonix 6. DVT ppx- Xarelto and teds 7. Pain- tylenol and oxyodone prn 8. Psych- depressopn- c/u geodon, olanzapine, and sertraline 9. Heme- post-op anemia with Hgb 7.7 s/p 1 unit 8.1 today 10. DIspo- tbd Allergies Coded Allergies: Sulfa (Sulfonamide Antibiotics) (Verified Allergy, Intermediate, HIVES, 02/16/20) Vital Signs Vital Signs Date Time Temp Pulse Resp B/P (MAP) Pulse Ox O2 Delivery O2 Flow Rate FiO2 05/08/20 06:06 99.4 91 18 145/65 (91) 96 Room Air Laboratory Data Labs 24H Laboratory Tests 2 05/07/20 16:54: Bedside Glucose (Misc Panel) 110 05/07/20 20:54: Bedside Glucose (Misc Panel) 145H 05/08/20 06:40: Bedside Glucose (Misc Panel) 94 05/08/20 11:32: Bedside Glucose (Misc Panel) 103 Current Medications Current Medications Current Medications Medications (Trade) Dose Ordered Sig/Bertram Route PRN Reason Start Time Stop Time Status Last Admin Dose Admin Acetaminophen (Tylenol Tab) 1,000 mg TID PO 05/05/20 21:00 05/08/20 09:35 Albuterol/ Ipratropium (Duoneb (Ipr 0.5mg/Alb 2.5mg)) 3 ml RTID NEB 05/05/20 20:00 05/08/20 07:17 Brimonidine Tartrate (Alphagan P 0.15%) 1 drop BID OU 05/06/20 09:00 05/08/20 09:36 Calcium/Vitamin D (Oscal D) 500 mg DAILY PO 05/06/20 09:00 05/08/20 09:34 Dextrose (Dextrose 50%) 25 ml ASDIRECTED PRN IV SEE LABEL COMMENTS 05/05/20 18:00 Docusate Sodium (Colace) 100 mg BID PO 05/05/20 21:00 05/08/20 09:34 EZETIMIBE (Zetia) 10 mg QHS PO 05/05/20 21:00 05/07/20 21:38 Ferrous Sulfate (Ferrous Sulfate) 325 mg BID PO 05/07/20 09:00 05/08/20 09:35 Fluticasone Propionate (Flonase 0.05% Nasal [place]) 1 spray BID NARES 05/06/20 09:00 05/08/20 09:36 Furosemide (Lasix) 20 mg DAILY PO 05/08/20 09:00 05/08/20 09:35 Glucagon (Glucagon) 1 mg ASDIRECTED PRN SC SEE LABEL COMMENTS 05/05/20 18:00 Glucose (Glucose) 16 GM ASDIRECTED PRN PO SEE LABEL COMMENTS 05/05/20 18:00 Heparin Sodium (Heparin (Flush)) 500 units ASDIRECTED PRN IV SEE LABEL COMMENTS 05/06/20 02:15 05/06/20 17:57 Heparin Sodium (Heparin (Flush)) 500 units DAILY IV 05/06/20 09:00 05/08/20 09:36 Home Med (Med Rec Complete!) ASDIRECTED XX 05/05/20 22:00 05/05/20 22:00 DC Insulin Human Lispro (HumaLOG INSULIN) SEE PROTOCOL TABLE AC SC 05/06/20 07:30 05/07/20 16:29 DC 05/07/20 11:51 Insulin Human Lispro (HumaLOG INSULIN) SEE PROTOCOL TABLE QHS SC 05/05/20 21:00 05/07/20 16:29 DC Levothyroxine Sodium (Synthroid) 150 mcg DAILY@06 PO 05/06/20 06:00 05/08/20 05:58 Olanzapine (ZyPREXA) 15 mg QHS PO 05/06/20 21:00 05/07/20 21:39 Oxycodone HCl (Roxicodone, Oxyir) 5 mg Q4HP PRN PO PAIN 05/05/20 18:00 05/07/20 16:52 Pantoprazole Sodium (Protonix) 40 mg DAILY PO 05/06/20 09:00 05/08/20 09:35 Potassium Chloride (Micro-K Extencaps) 10 meq BID PO 05/05/20 21:00 05/08/20 09:35 Rivaroxaban (Xarelto) 10 mg DAILY@1800 PO 05/06/20 18:00 05/07/20 16:52 Senna (Senokot) 1 tab QHS PO 05/05/20 21:00 05/07/20 21:38 Sertraline HCl (Zoloft) 200 mg QHS PO 05/06/20 21:00 05/07/20 21:38 Simvastatin (Zocor) 40 mg DAILY PO 05/06/20 09:00 05/08/20 09:34 Sodium Chloride ([place] Nasal [place]) 2 spray TID NA 05/06/20 09:00 05/08/20 09:36 Sodium Chloride (Saline Lock Flush) 10 ml ASDIRECTED PRN IV SEE LABEL COMMENTS 05/06/20 02:15 05/06/20 17:57 Sodium Chloride (Saline Lock Flush) 10 ml DAILY IV 05/06/20 09:00 05/08/20 09:36 Topiramate (TopAMAX) 200 mg QHS PO 05/06/20 21:00 05/07/20 21:38 Ziprasidone (Geodon) 80 mg DAILY@18 PO 05/06/20 18:00 05/07/20 16:52 CHARU LOVELL MD May 08, 2020 13:13
[2020-05-08 14:00] VITALS: BP 134/64
[2020-05-08] MEDS: oxyCODONE 5MG TAB PO PRN (14:13)
[2020-05-08] MEDS: ZIPRASIDONE 80 MG CAP (GEODON) PO SCH (17:22)
[2020-05-08] MEDS: RIVAROXABAN 10 MG TAB (XARELTO) PO SCH (17:22)
[2020-05-08 20:15] VITALS: BP 133/61
[2020-05-08] MEDS: TOPIRAMATE (TopAMAX) 100 MG TAB PO SCH (20:47)
[2020-05-08] MEDS: OLANZapine 10 MG TAB PO SCH (20:47)
[2020-05-08] MEDS: SERTRALINE 100 MG TAB PO SCH (20:49)
[2020-05-08] MEDS: SENNA 8.6 MG TAB (SENOKOT) PO SCH (20:49)
[2020-05-08] MEDS: EZETIMIBE 10 MG TAB (ZETIA) PO SCH (20:51)
[2020-05-09] MEDS: LEVOTHYROXINE 150MCG TABLET (0.15MG) PO SCH (05:36)
[2020-05-09 06:00] VITALS: BP 143/69
[2020-05-09] MEDS: IPRATROPIUM 0.5MG/ALBUTEROL 2.5MG INH SOL UD 3ML (DUONEB) NEB SCH ×3 (07:20→20:15)
[2020-05-09] MEDS: PANTOPRAZOLE 40MG TAB (PROTONIX) PO SCH (08:50)
[2020-05-09] MEDS: FERROUS SULFATE 325MG TAB PO SCH ×2 (08:50→20:59)
[2020-05-09] MEDS: SIMVASTATIN 40 MG TAB PO SCH (08:50)
[2020-05-09] MEDS: CALCIUM/VITAMIN D 500 MG TAB PO SCH (08:50)
[2020-05-09] MEDS: DOCUSATE SODIUM 100MG CAPSULE PO SCH ×2 (08:50→20:59)
[2020-05-09] MEDS: ACETAMINOPHEN 500 MG TAB PO SCH ×3 (08:50→20:59)
[2020-05-09] MEDS: FUROSEMIDE 20 MG TAB PO SCH (08:51)
[2020-05-09] MEDS: POTASSIUM CHLORIDE 10 MEQ SR TABLET PO SCH ×2 (08:52→20:59)
[2020-05-09] MEDS: SODIUM CHLORIDE 0.9% INJ 10 ML SYR IV SCH (08:53)
[2020-05-09] MEDS: REMEDY PHYTOPLEX Z-GUARD PASTE 113GM TUBE (FROM STOREROOM PRODUCT) TOP SCH ×3 (08:55→21:00)
[2020-05-09] MEDS: BRIMONIDINE 0.15% OPHTH SOLN 5 ML OU SCH ×2 (08:56→21:00)
[2020-05-09] MEDS: FLUTICASONE PROP 0.05% NASAL SPRAY 16 GM (FLONASE) NARES SCH ×2 (08:56→21:01)
[2020-05-09] MEDS: SODIUM CHLORIDE NASAL 0.65% SPRAY BTL (OCEAN) SCH ×3 (08:56→21:01)
[2020-05-09 14:00] VITALS: BP 117/58
[2020-05-09] MEDS: ZIPRASIDONE 80 MG CAP (GEODON) PO SCH (17:17)
[2020-05-09] MEDS: RIVAROXABAN 10 MG TAB (XARELTO) PO SCH (17:17)
[2020-05-09 20:00] VITALS: BP 135/63
[2020-05-09] MEDS: TOPIRAMATE (TopAMAX) 100 MG TAB PO SCH (20:59)
[2020-05-09] MEDS: SENNA 8.6 MG TAB (SENOKOT) PO SCH (20:59)
[2020-05-09] MEDS: SERTRALINE 100 MG TAB PO SCH (20:59)
[2020-05-09] MEDS: OLANZapine 10 MG TAB PO SCH (20:59)
[2020-05-09] MEDS: EZETIMIBE 10 MG TAB (ZETIA) PO SCH (20:59)
[2020-05-10] MEDS: LEVOTHYROXINE 150MCG TABLET (0.15MG) PO SCH (05:43)
[2020-05-10 06:02] VITALS: BP 141/69
[2020-05-10] MEDS: DOCUSATE SODIUM 100MG CAPSULE PO SCH ×2 (08:03→20:36)
[2020-05-10] MEDS: CALCIUM/VITAMIN D 500 MG TAB PO SCH (08:03)
[2020-05-10] MEDS: SIMVASTATIN 40 MG TAB PO SCH (08:04)
[2020-05-10] MEDS: FERROUS SULFATE 325MG TAB PO SCH ×2 (08:04→20:36)
[2020-05-10] MEDS: ACETAMINOPHEN 500 MG TAB PO SCH ×3 (08:04→20:36)
[2020-05-10] MEDS: PANTOPRAZOLE 40MG TAB (PROTONIX) PO SCH (08:04)
[2020-05-10] MEDS: POTASSIUM CHLORIDE 10 MEQ SR TABLET PO SCH ×2 (08:04→20:37)
[2020-05-10] MEDS: FUROSEMIDE 20 MG TAB PO SCH (08:05)
[2020-05-10] MEDS: SODIUM CHLORIDE 0.9% INJ 10 ML SYR IV SCH (08:05)
[2020-05-10] MEDS: SODIUM CHLORIDE NASAL 0.65% SPRAY BTL (OCEAN) SCH ×3 (08:06→20:38)
[2020-05-10] MEDS: FLUTICASONE PROP 0.05% NASAL SPRAY 16 GM (FLONASE) NARES SCH ×2 (08:06→20:38)
[2020-05-10] MEDS: BRIMONIDINE 0.15% OPHTH SOLN 5 ML OU SCH ×2 (08:06→20:44)
[2020-05-10] MEDS: REMEDY PHYTOPLEX Z-GUARD PASTE 113GM TUBE (FROM STOREROOM PRODUCT) TOP SCH ×3 (08:06→20:40)
[2020-05-10 08:09] LABS: BASO % 0.3 % (0.0-1.0); EOS # 0.3 10^3/uL (0.0-0.5); EOS % 2.6 % (0.0-3.0); HEMOGLOBIN 8.6 g/dl (12.0-15.5); LYMPH # 0.5 10^3/uL (1.5-5.0); LYMPH % 4.8 % (24.0-44.0); MEAN CORPUSCULAR HEMOGLOBIN 30.4 pg (27.0-33.0); MEAN CORPUSCULAR HGB CONC 30.7 g/dl (32.0-36.5); MEAN CORPUSCULAR VOLUME 98.9 fl (80.0-96.0); MONO # 0.5 10^3/uL (0.0-0.8); MONO % 4.3 % (0.0-5.0); NEUTROPHILS # 9.6 10^3/uL (1.5-8.5); NEUTROPHILS % 86.6 % (36.0-66.0); PLATELET COUNT, AUTOMATED 171 10^3/uL (150-450); RED BLOOD COUNT 2.83 10^6/uL (4.00-5.40); WHITE BLOOD COUNT 11.1 10^3/uL (4.0-10.0)
[2020-05-10 08:30] LABS: BLOOD UREA NITROGEN 13 MG/DL (7-18); CARBON DIOXIDE LEVEL 22 MEQ/L (21-32); CHLORIDE LEVEL 108 MEQ/L (98-107); CREATININE FOR GFR 0.78 MG/DL (0.55-1.30); GLOMERULAR FILTRATION RATE > 60.0 (>39); GLUCOSE, FASTING 130 MG/DL (70-100); POTASSIUM SERUM 3.8 MEQ/L (3.5-5.1); SODIUM LEVEL 138 MEQ/L (136-145)
[2020-05-10] MEDS: IPRATROPIUM 0.5MG/ALBUTEROL 2.5MG INH SOL UD 3ML (DUONEB) NEB SCH ×3 (09:23→18:49)
--- NOTE | 2020-05-10 13:06 | IPNPDOC ---
PM&R Progress Note DATE OF SERVICE: May 10, 2020 Diamond Expert Progress Note SUbjective: PAtient reporting she has developed a cough over the weekend, but denies fevers or chills. REVIEW OF SYSTEMS: The following is a completed review of systems and has been reviewed. Review of systems otherwise unremarkable. PAIN: Patient self reports right hip pain EYES: No recent vision changes EARS, NOSE, & THROAT: No throat pain, or dysphagia, or rhinorrhea, +sinus congestion CARDIOVASCULAR: Denies chest pain or palpitations PULMONARY: Denies shortness of breath GASTROINTESTINAL: Denies constipation/diarrhea GENITOURINARY: denies dysuria MUSCULOSKELETAL: s/p right hip fracture NEUROLOGICAL:denies paresthesias HEMATOLOGICAL: +anemia SKIN: right hip incision PSYCHIATRIC: Unremarkable All other review of systems found to be negative. PHYSICAL EXAMINATION: VITAL SIGNS: Please see below. GENERAL: Pleasant and cooperative. No acute distress. HEENT: PERRL. Extraocular movements intact. Clear conjunctiva CARDIOVASCULAR: Regular rate and rhythm. No murmurs, rubs, or gallops, + chest wall port LUNGS: CTA ABDOMEN: Soft, nontender, nondistended. Positive bowel sounds. Normal active bowel sounds NEUROLOGICAL: Alert and oriented to self and time not able to name president Cranial nerves II through XII grossly intact. Sensation grossly intact including 1st dorsal webspace right foot EXTREMITIES: 5-\5 strength bilateral upper extremities. 5-/5 right ankle DF and PF (exam limited due to surgery), 4+/5 LLE bilat LE edema (improving), negative Hallie's SKIN: right hip incision with scant serous drainage, no induration ASSESSMENT:75-year-old F with past medical history of left hip fracture who presents status post right hip fracture PLAN: 1. rehab- PT/OPT advance gait and ADLs, strengthen/stretch/maintain ROM all 4limbs 2. ortho s/p right hip hemiarthropalsty, WBAT with posterolateral hip precautions, ortho consulted 3. cardiac- hx of HTN c/u home meds, medicine consulted to assist in overall management -no recorded CHF, however patient with LE edema, will start low dose lasix, daily weights, 1800cc fluids, and c/u monitor -HLD- c/u home meds 4. resp- hx of COPD, c/u Duonebs, monitor for infection, patient reporting cough, mild leukocytosis, will order CXR to r/o PNa and order resp-panel- guaife nesin added -flonase and NS nasal drops for sinus congestion 5. GI ppx- protonix 6. DVT ppx- Xarelto and teds 7. Pain- tylenol and oxyodone prn 8. Psych- depression- c/u geodon, olanzapine, and sertraline 9. Heme- post-op anemia s/p 1 unit rbc 10. DIspo- tbd Allergies Coded Allergies: Sulfa (Sulfonamide Antibiotics) (Verified Allergy, Intermediate, HIVES, ) Vital Signs Vital Signs Date Time Temp Pulse Resp B/P (MAP) Pulse Ox O2 Delivery O2 Flow Rate FiO2 05/10/20 06:02 99.6 115 20 141/69 (93) 90 Room Air Laboratory Data CBC/BMP Laboratory Tests 05/10/20 07:13 Labs 24H Laboratory Tests 2 05/09/20 16:40: Bedside Glucose (Misc Panel) 94 05/09/20 20:01: Bedside Glucose (Misc Panel) 91 05/10/20 05:10: Bedside Glucose (Misc Panel) 95 05/10/20 07:13: Immature Granulocyte % (Auto) 1.4, Neutrophils (%) (Auto) 86.6H, Lymphocytes (%) (Auto) 4.8L, Monocytes (%) (Auto) 4.3, Eosinophils (%) (Auto) 2.6, Basophils (%) (Auto) 0.3, Neutrophils # (Auto) 9.6H, Lymphocytes # (Auto) 0.5L, Monocytes # (Auto) 0.5, Eosinophils # (Auto) 0.3, Basophils # (Auto) 0.0, Nucleated Red Blood Cells % (auto) 0.0, Anion Gap 8, Glomerular Filtration Rate > 60.0, Calcium Level 8.0L 05/10/20 11:16: Bedside Glucose (Misc Panel) 87 05/10/20 11:55: Urine Color STRAW, Urine Appearance CLEAR, Urine pH 6.0, Urine Specific [place] 1.009, Urine Protein NEGATIVE, Urine Glucose (UA) NEGATIVE, Urine Ketones NEGATIVE, Urine Blood NEGATIVE, Urine Nitrite NEGATIVE, Urine Bilirubin NEGATIVE, Urine Urobilinogen 0.2, Urine Leukocyte Esterase NEGATIVE, Urine WBC (Auto) 0, Urine RBC (Auto) 0, Urine Hyaline Casts (Auto) 4, Urine Bacteria (Auto) NEGATIVE, Urine Squamous Epithelial Cells 0, Urine Mucus (Auto) SMALL, Urine Sperm (Auto) Current Medications Current Medications Current Medications Medications (Trade) Dose Ordered Sig/Bertram Route PRN Reason Start Time Stop Time Status Last Admin Dose Admin Acetaminophen (Tylenol Tab) 1,000 mg TID PO 05/05/20 21:00 05/10/20 08:04 Albuterol/ Ipratropium (Duoneb (Ipr 0.5mg/Alb 2.5mg)) 3 ml RTID NEB 05/05/20 20:00 05/09/20 20:15 Brimonidine Tartrate (Alphagan P 0.15%) 1 drop BID OU 05/06/20 09:00 05/10/20 08:06 Calcium/Vitamin D (Oscal D) 500 mg DAILY PO 05/06/20 09:00 05/10/20 08:03 Dextrose (Dextrose 50%) 25 ml ASDIRECTED PRN IV SEE LABEL COMMENTS 05/05/20 18:00 Docusate Sodium (Colace) 100 mg BID PO 05/05/20 21:00 05/10/20 08:03 EZETIMIBE (Zetia) 10 mg QHS PO 05/05/20 21:00 05/09/20 20:59 Ferrous Sulfate (Ferrous Sulfate) 325 mg BID PO 05/07/20 09:00 05/10/20 08:04 Fluticasone Propionate (Flonase 0.05% Nasal [place]) 1 spray BID NARES 05/06/20 09:00 05/10/20 08:06 Furosemide (Lasix) 20 mg DAILY PO 05/08/20 09:00 05/10/20 08:05 Glucagon (Glucagon) 1 mg ASDIRECTED PRN SC SEE LABEL COMMENTS 05/05/20 18:00 Glucose (Glucose) 16 GM ASDIRECTED PRN PO SEE LABEL COMMENTS 05/05/20 18:00 Heparin Sodium (Heparin (Flush)) 500 units ASDIRECTED PRN IV SEE LABEL COMMENTS 05/06/20 02:15 05/06/20 17:57 Heparin Sodium (Heparin (Flush)) 500 units DAILY IV 05/06/20 09:00 05/10/20 08:05 Home Med (Med Rec Complete!) ASDIRECTED XX 05/05/20 22:00 05/05/20 22:00 DC Insulin Human Lispro (HumaLOG INSULIN) SEE PROTOCOL TABLE AC SC 05/06/20 07:30 05/07/20 16:29 DC 05/07/20 11:51 Insulin Human Lispro (HumaLOG INSULIN) SEE PROTOCOL TABLE QHS SC 05/05/20 21:00 05/07/20 16:29 DC Levothyroxine Sodium (Synthroid) 150 mcg DAILY@06 PO 05/06/20 06:00 05/10/20 05:43 Olanzapine (ZyPREXA) 15 mg QHS PO 05/06/20 21:00 05/09/20 20:59 Oxycodone HCl (Roxicodone, Oxyir) 5 mg Q4HP PRN PO PAIN 05/05/20 18:00 05/08/20 14:13 Pantoprazole Sodium (Protonix) 40 mg DAILY PO 05/06/20 09:00 05/10/20 08:04 Potassium Chloride (Micro-K Extencaps) 10 meq BID PO 05/05/20 21:00 05/10/20 08:04 Rivaroxaban (Xarelto) 10 mg DAILY@1800 PO 05/06/20 18:00 05/09/20 17:17 Senna (Senokot) 1 tab QHS PO 05/05/20 21:00 05/09/20 20:59 Sertraline HCl (Zoloft) 200 mg QHS PO 05/06/20 21:00 05/09/20 20:59 Simvastatin (Zocor) 40 mg DAILY PO 05/06/20 09:00 05/10/20 08:04 Sodium Chloride ([place] Nasal [place]) 2 spray TID NA 05/06/20 09:00 05/10/20 08:06 Sodium Chloride (Saline Lock Flush) 10 ml ASDIRECTED PRN IV SEE LABEL COMMENTS 05/06/20 02:15 05/06/20 17:57 Sodium Chloride (Saline Lock Flush) 10 ml DAILY IV 05/06/20 09:00 05/10/20 08:05 Topiramate (TopAMAX) 200 mg QHS PO 05/06/20 21:00 05/09/20 20:59 Ziprasidone (Geodon) 80 mg DAILY@18 PO 05/06/20 18:00 05/09/20 17:17 CHARU LOVELL MD May 10, 2020 13:06
[2020-05-10 14:00] VITALS: BP 144/67
[2020-05-10] MEDS: guaiFENesin 200 MG TAB PO SCH ×2 (17:06→20:37)
[2020-05-10] MEDS: ZIPRASIDONE 80 MG CAP (GEODON) PO SCH (17:07)
[2020-05-10] MEDS: RIVAROXABAN 10 MG TAB (XARELTO) PO SCH (17:07)
--- NOTE | 2020-05-10 17:11 | REP ---
INDICATION: cough and leukocytosis. COMPARISON: PA and lateral chest dated 04/29/2007. There are no other comparisons. TECHNIQUE: PA and lateral chest. FINDINGS: There is a left IJ Gmkggl-I-Alvo catheter with the tip in the superior vena cava in satisfactory position as an interval change. There is an infusion needle in the port. There is diffuse interstitial coarsening with interspersed focal lucencies bilaterally, suggestive of numerous bulla and thickened interstitium, as interval changes. There is a large focal density inferiorly in the left lung. I suspect this is in the lingula but the specific location could be confirmed by CT. This is nonspecific and could represent infiltrate or mass. Cardiac size is normal. There are no pleural effusions. The nickie are somewhat obscured by the interstitial changes. Mediastinum and skeletal structures are unremarkable. IMPRESSION: Diffuse bilateral interstitial coarsening with interspersed lucencies suggesting multiple bulla bilaterally as interval changes. Large focal density inferiorly in the left lung which could be a mass or an infiltrate. Left IJ Aragls-L-Uvco catheter as described. Consider chest CT for further evaluation. <Electronically signed by Luis M Riley > 05/10/20 [id number]
[2020-05-10 20:00] VITALS: BP 137/65
[2020-05-10] MEDS: SENNA 8.6 MG TAB (SENOKOT) PO SCH (20:36)
[2020-05-10] MEDS: EZETIMIBE 10 MG TAB (ZETIA) PO SCH (20:37)
[2020-05-10] MEDS: SERTRALINE 100 MG TAB PO SCH (20:37)
[2020-05-10] MEDS: OLANZapine 10 MG TAB PO SCH (20:37)
[2020-05-10] MEDS: TOPIRAMATE (TopAMAX) 100 MG TAB PO SCH (20:40)
[2020-05-11 06:03] VITALS: BP 130/62
[2020-05-11] MEDS: LEVOTHYROXINE 150MCG TABLET (0.15MG) PO SCH (06:03)
[2020-05-11 07:49] LABS: BASO % 0.3 % (0.0-1.0); EOS # 0.4 10^3/uL (0.0-0.5); EOS % 3.2 % (0.0-3.0); HEMOGLOBIN 8.7 g/dl (12.0-15.5); LYMPH # 0.7 10^3/uL (1.5-5.0); LYMPH % 5.7 % (24.0-44.0); MEAN CORPUSCULAR HEMOGLOBIN 30.7 pg (27.0-33.0); MEAN CORPUSCULAR HGB CONC 31.1 g/dl (32.0-36.5); MEAN CORPUSCULAR VOLUME 98.9 fl (80.0-96.0); MONO # 0.7 10^3/uL (0.0-0.8); MONO % 5.5 % (0.0-5.0); NEUTROPHILS # 9.9 10^3/uL (1.5-8.5); NEUTROPHILS % 84.2 % (36.0-66.0); PLATELET COUNT, AUTOMATED 155 10^3/uL (150-450); RED BLOOD COUNT 2.83 10^6/uL (4.00-5.40); WHITE BLOOD COUNT 11.7 10^3/uL (4.0-10.0)
[2020-05-11] MEDS: SODIUM CHLORIDE 0.9% INJ 10 ML SYR IV SCH (08:05)
[2020-05-11] MEDS: IPRATROPIUM 0.5MG/ALBUTEROL 2.5MG INH SOL UD 3ML (DUONEB) NEB SCH ×3 (08:05→18:11)
[2020-05-11] MEDS: PANTOPRAZOLE 40MG TAB (PROTONIX) PO SCH (08:06)
[2020-05-11] MEDS: ACETAMINOPHEN 500 MG TAB PO SCH ×3 (08:06→22:01)
[2020-05-11] MEDS: FUROSEMIDE 20 MG TAB PO SCH (08:06)
[2020-05-11] MEDS: guaiFENesin 200 MG TAB PO SCH ×3 (08:06→21:59)
[2020-05-11] MEDS: SIMVASTATIN 40 MG TAB PO SCH (08:07)
[2020-05-11] MEDS: FERROUS SULFATE 325MG TAB PO SCH ×2 (08:07→21:56)
[2020-05-11] MEDS: POTASSIUM CHLORIDE 10 MEQ SR TABLET PO SCH ×2 (08:07→21:58)
[2020-05-11] MEDS: FLUTICASONE PROP 0.05% NASAL SPRAY 16 GM (FLONASE) NARES SCH ×2 (08:07→21:56)
[2020-05-11] MEDS: SODIUM CHLORIDE NASAL 0.65% SPRAY BTL (OCEAN) SCH ×3 (08:07→21:56)
[2020-05-11] MEDS: CALCIUM/VITAMIN D 500 MG TAB PO SCH (08:07)
[2020-05-11] MEDS: BRIMONIDINE 0.15% OPHTH SOLN 5 ML OU SCH ×2 (08:08→21:56)
[2020-05-11] MEDS: REMEDY PHYTOPLEX Z-GUARD PASTE 113GM TUBE (FROM STOREROOM PRODUCT) TOP SCH ×3 (08:08→21:00)
[2020-05-11] MEDS: DOCUSATE SODIUM 100MG CAPSULE PO SCH ×2 (08:10→21:56)
[2020-05-11] MEDS: LACTOBACILLUS ACIDOPHILUS CAP (BACID) PO SCH ×3 (10:06→21:59)
[2020-05-11] MEDS: CEFDINIR 300 MG CAP (OMNICEF) PO SCH ×2 (10:06→21:56)
--- NOTE | 2020-05-11 12:58 | IPNPDOC ---
PM&R Progress Note DATE OF SERVICE: May 11, 2020 Lawyer Probate Progress Note SUbjective: Patient reporting she feels a little better today and still has a cough. SHe denies fevers/chills. REVIEW OF SYSTEMS: The following is a completed review of systems and has been reviewed. Review of systems otherwise unremarkable. PAIN: Patient self reports right hip pain EYES: No recent vision changes EARS, NOSE, & THROAT: No throat pain, or dysphagia, or rhinorrhea, +sinus congestion CARDIOVASCULAR: Denies chest pain or palpitations PULMONARY: Denies shortness of breath, +cough GASTROINTESTINAL: Denies constipation/diarrhea GENITOURINARY: denies dysuria MUSCULOSKELETAL: s/p right hip fracture NEUROLOGICAL:denies paresthesias HEMATOLOGICAL: +anemia SKIN: right hip incision PSYCHIATRIC: Unremarkable All other review of systems found to be negative. PHYSICAL EXAMINATION: VITAL SIGNS: Please see below. GENERAL: Pleasant and cooperative. No acute distress. HEENT: PERRL. Extraocular movements intact. Clear conjunctiva CARDIOVASCULAR: Regular rate and rhythm. No murmurs, rubs, or gallops, + chest wall port LUNGS: scattered wheeze ABDOMEN: Soft, nontender, nondistended. Positive bowel sounds. Normal active bowel sounds NEUROLOGICAL: Alert and oriented to self and time not able to name president Cranial nerves II through XII grossly intact. Sensation grossly intact including 1st dorsal webspace right foot EXTREMITIES: 5-\5 strength bilateral upper extremities. 5-/5 right ankle DF and PF (exam limited due to surgery), 4+/5 LLE bilat LE edema (improving), negative Hallie's SKIN: right hip incision with scant serous drainage, no induration ASSESSMENT:75-year-old F with past medical history of left hip fracture who presents status post right hip fracture PLAN: 1. rehab- PT/OPT advance gait and ADLs, strengthen/stretch/maintain ROM all 4limbs 2. ortho s/p right hip hemiarthropalsty, WBAT with posterolateral hip precautions, ortho consulted 3. cardiac- hx of HTN c/u home meds, medicine consulted to assist in overall management -no recorded CHF, however patient with LE edema, will start low dose lasix, daily weights, 1800cc fluids, and c/u monitor -HLD- c/u home meds 4. resp- hx of COPD, c/u Duonebs, monitor for infection, patient reporting cough, mild leukocytosis - resp-panel negative -CXR with Left lower lobe consolidation, started on Cefdinir for pneumonia- clinically stable -c/u guaifenesin -flonase and NS nasal drops for sinus congestion 5. GI ppx- protonix 6. DVT ppx- Xarelto and teds 7. Pain- tylenol and oxyodone prn 8. Psych- depression- c/u geodon, olanzapine, and sertraline 9. Heme- post-op anemia s/p 1 unit rbc 10. DIspo- tbd Allergies Coded Allergies: Sulfa (Sulfonamide Antibiotics) (Verified Allergy, Intermediate, HIVES, 02/16/20) Vital Signs Vital Signs Date Time Temp Pulse Resp B/P (MAP) Pulse Ox O2 Delivery O2 Flow Rate FiO2 05/11/20 06:03 99.0 87 19 130/62 (84) 95 Room Air Laboratory Data CBC/BMP Laboratory Tests 05/11/20 07:34 Labs 24H Laboratory Tests 2 05/10/20 16:38: Bedside Glucose (Misc Panel) 115H 05/10/20 19:29: Bedside Glucose (Misc Panel) 113H 05/11/20 05:19: Bedside Glucose (Misc Panel) 92 05/11/20 07:34: Immature Granulocyte % (Auto) 1.1, Neutrophils (%) (Auto) 84.2H, Lymphocytes (%) (Auto) 5.7L, Monocytes (%) (Auto) 5.5H, Eosinophils (%) (Auto) 3.2H, Basophils (%) (Auto) 0.3, Neutrophils # (Auto) 9.9H, Lymphocytes # (Auto) 0.7L, Monocytes # (Auto) 0.7, Eosinophils # (Auto) 0.4, Basophils # (Auto) 0.0, Nucleated Red Blood Cells % (auto) 0.0 05/11/20 11:54: Bedside Glucose (Misc Panel) 110 Microbiology Microbiology 05/10/20 Respiratory Virus Panel (PCR) ([facility]) - Final, Complete Current Medications Current Medications Current Medications Medications (Trade) Dose Ordered Sig/Bertram Route PRN Reason Start Time Stop Time Status Last Admin Dose Admin Acetaminophen (Tylenol Tab) 1,000 mg TID PO 05/05/20 21:00 05/11/20 08:06 Albuterol/ Ipratropium (Duoneb (Ipr 0.5mg/Alb 2.5mg)) 3 ml RTID NEB 05/05/20 20:00 05/11/20 08:05 Brimonidine Tartrate (Alphagan P 0.15%) 1 drop BID OU 05/06/20 09:00 05/11/20 08:08 Calcium/Vitamin D (Oscal D) 500 mg DAILY PO 05/06/20 09:00 05/11/20 08:07 Cefdinir (Omnicef) 300 mg BID PO 05/11/20 09:00 05/20/20 21:01 05/11/20 10:06 Dextrose (Dextrose 50%) 25 ml ASDIRECTED PRN IV SEE LABEL COMMENTS 05/05/20 18:00 Docusate Sodium (Colace) 100 mg BID PO 05/05/20 21:00 05/10/20 20:36 EZETIMIBE (Zetia) 10 mg QHS PO 05/05/20 21:00 05/10/20 20:37 Ferrous Sulfate (Ferrous Sulfate) 325 mg BID PO 05/07/20 09:00 05/11/20 08:07 Fluticasone Propionate (Flonase 0.05% Nasal [place]) 1 spray BID NARES 05/06/20 09:00 05/11/20 08:07 Furosemide (Lasix) 20 mg DAILY PO 05/08/20 09:00 05/11/20 08:06 Glucagon (Glucagon) 1 mg ASDIRECTED PRN SC SEE LABEL COMMENTS 05/05/20 18:00 Glucose (Glucose) 16 GM ASDIRECTED PRN PO SEE LABEL COMMENTS 05/05/20 18:00 Guaifenesin (Robitussin Tab) 400 mg TID PO 05/10/20 16:00 05/11/20 08:06 Heparin Sodium (Heparin (Flush)) 500 units ASDIRECTED PRN IV SEE LABEL COMMENTS 05/06/20 02:15 05/06/20 17:57 Heparin Sodium (Heparin (Flush)) 500 units DAILY IV 05/06/20 09:00 05/11/20 08:06 Home Med (Med Rec Complete!) ASDIRECTED XX 05/05/20 22:00 05/05/20 22:00 DC Insulin Human Lispro (HumaLOG INSULIN) SEE PROTOCOL TABLE AC SC 05/06/20 07:30 05/07/20 16:29 DC 05/07/20 11:51 Insulin Human Lispro (HumaLOG INSULIN) SEE PROTOCOL TABLE QHS SC 05/05/20 21:00 05/07/20 16:29 DC Lactobacillus Acidophilus (Bacid) 1 ea TID PO 05/11/20 09:00 05/11/20 10:06 Levothyroxine Sodium (Synthroid) 150 mcg DAILY@06 PO 05/06/20 06:00 05/11/20 06:03 Olanzapine (ZyPREXA) 15 mg QHS PO 05/06/20 21:00 05/10/20 20:37 Oxycodone HCl (Roxicodone, Oxyir) 5 mg Q4HP PRN PO PAIN 05/05/20 18:00 05/08/20 14:13 Pantoprazole Sodium (Protonix) 40 mg DAILY PO 05/06/20 09:00 05/11/20 08:06 Potassium Chloride (Micro-K Extencaps) 10 meq BID PO 05/05/20 21:00 05/11/20 08:07 Rivaroxaban (Xarelto) 10 mg DAILY@1800 PO 05/06/20 18:00 05/10/20 17:07 Senna (Senokot) 1 tab QHS PO 05/05/20 21:00 05/10/20 20:36 Sertraline HCl (Zoloft) 200 mg QHS PO 05/06/20 21:00 05/10/20 20:37 Simvastatin (Zocor) 40 mg DAILY PO 05/06/20 09:00 05/11/20 08:07 Sodium Chloride ([place] Nasal [place]) 2 spray TID NA 05/06/20 09:00 05/11/20 08:07 Sodium Chloride ([place] Flush) 10 ml ASDIRECTED PRN IV SEE LABEL COMMENTS 05/06/20 02:15 05/06/20 17:57 Sodium Chloride (Saline [place] Flush) 10 ml DAILY IV 05/06/20 09:00 05/11/20 08:05 Topiramate (TopAMAX) 200 mg QHS PO 05/06/20 21:00 05/10/20 20:40 Ziprasidone (Geodon) 80 mg DAILY@18 PO 05/06/20 18:00 05/10/20 17:07 CHARU LOVELL MD May 11, 2020 12:58
[2020-05-11 14:00] VITALS: BP 123/58
[2020-05-11] MEDS: ZIPRASIDONE 80 MG CAP (GEODON) PO SCH (18:08)
[2020-05-11] MEDS: RIVAROXABAN 10 MG TAB (XARELTO) PO SCH (18:08)
[2020-05-11 20:00] VITALS: BP 117/53
[2020-05-11] MEDS: EZETIMIBE 10 MG TAB (ZETIA) PO SCH (21:56)
[2020-05-11] MEDS: SENNA 8.6 MG TAB (SENOKOT) PO SCH (21:56)
[2020-05-11] MEDS: TOPIRAMATE (TopAMAX) 100 MG TAB PO SCH (21:59)
[2020-05-11] MEDS: SERTRALINE 100 MG TAB PO SCH (21:59)
[2020-05-11] MEDS: OLANZapine 10 MG TAB PO SCH (21:59)
[2020-05-12] MEDS: LEVOTHYROXINE 150MCG TABLET (0.15MG) PO SCH (05:16)
[2020-05-12 06:00] VITALS: BP 129/60
[2020-05-12] MEDS: IPRATROPIUM 0.5MG/ALBUTEROL 2.5MG INH SOL UD 3ML (DUONEB) NEB SCH ×3 (06:04→17:49)
[2020-05-12 06:58] LABS: BASO % 0.2 % (0.0-1.0); EOS # 0.3 10^3/uL (0.0-0.5); EOS % 2.6 % (0.0-3.0); HEMATOCRIT 27.1 % (36.0-47.0); HEMOGLOBIN 8.7 g/dl (12.0-15.5); LYMPH # 0.5 10^3/uL (1.5-5.0); LYMPH % 4.4 % (24.0-44.0); MEAN CORPUSCULAR HEMOGLOBIN 31.8 pg (27.0-33.0); MEAN CORPUSCULAR HGB CONC 32.1 g/dl (32.0-36.5); MEAN CORPUSCULAR VOLUME 98.9 fl (80.0-96.0); MONO # 0.6 10^3/uL (0.0-0.8); MONO % 4.7 % (0.0-5.0); NEUTROPHILS # 10.4 10^3/uL (1.5-8.5); NEUTROPHILS % 86.6 % (36.0-66.0); PLATELET COUNT, AUTOMATED 146 10^3/uL (150-450); RED BLOOD COUNT 2.74 10^6/uL (4.00-5.40)
[2020-05-12 07:21] LABS: BLOOD UREA NITROGEN 11 MG/DL (7-18); CALCIUM LEVEL 8.2 MG/DL (8.8-10.2); CARBON DIOXIDE LEVEL 23 MEQ/L (21-32); CHLORIDE LEVEL 106 MEQ/L (98-107); CREATININE FOR GFR 0.69 MG/DL (0.55-1.30); GLOMERULAR FILTRATION RATE > 60.0 (>39); GLUCOSE, FASTING 91 MG/DL (70-100); POTASSIUM SERUM 3.7 MEQ/L (3.5-5.1); SODIUM LEVEL 136 MEQ/L (136-145)
[2020-05-12] MEDS: CEFDINIR 300 MG CAP (OMNICEF) PO SCH ×2 (07:36→21:17)
[2020-05-12] MEDS: guaiFENesin 200 MG TAB PO SCH ×3 (07:37→21:16)
[2020-05-12] MEDS: FERROUS SULFATE 325MG TAB PO SCH ×2 (07:37→21:16)
[2020-05-12] MEDS: LACTOBACILLUS ACIDOPHILUS CAP (BACID) PO SCH ×3 (07:37→21:17)
[2020-05-12] MEDS: ACETAMINOPHEN 500 MG TAB PO SCH ×3 (07:37→21:16)
[2020-05-12] MEDS: CALCIUM/VITAMIN D 500 MG TAB PO SCH (07:37)
[2020-05-12] MEDS: POTASSIUM CHLORIDE 10 MEQ SR TABLET PO SCH ×2 (07:38→21:17)
[2020-05-12] MEDS: FUROSEMIDE 20 MG TAB PO SCH (07:38)
[2020-05-12] MEDS: SIMVASTATIN 40 MG TAB PO SCH (07:38)
[2020-05-12] MEDS: PANTOPRAZOLE 40MG TAB (PROTONIX) PO SCH (07:38)
[2020-05-12] MEDS: DOCUSATE SODIUM 100MG CAPSULE PO SCH ×2 (07:39→21:17)
[2020-05-12] MEDS: SODIUM CHLORIDE 0.9% INJ 10 ML SYR IV SCH (07:39)
[2020-05-12] MEDS: FLUTICASONE PROP 0.05% NASAL SPRAY 16 GM (FLONASE) NARES SCH ×2 (07:40→21:28)
[2020-05-12] MEDS: SODIUM CHLORIDE NASAL 0.65% SPRAY BTL (OCEAN) SCH ×3 (07:40→21:28)
[2020-05-12] MEDS: BRIMONIDINE 0.15% OPHTH SOLN 5 ML OU SCH ×2 (07:40→21:28)
[2020-05-12] MEDS: REMEDY PHYTOPLEX Z-GUARD PASTE 113GM TUBE (FROM STOREROOM PRODUCT) TOP SCH ×3 (07:40→21:29)
[2020-05-12 14:00] VITALS: BP 123/58
[2020-05-12] MEDS: RIVAROXABAN 10 MG TAB (XARELTO) PO SCH (17:41)
[2020-05-12] MEDS: ZIPRASIDONE 80 MG CAP (GEODON) PO SCH (17:41)
[2020-05-12 20:30] VITALS: BP 128/62
[2020-05-12] MEDS: EZETIMIBE 10 MG TAB (ZETIA) PO SCH (21:16)
[2020-05-12] MEDS: OLANZapine 10 MG TAB PO SCH (21:16)
[2020-05-12] MEDS: SERTRALINE 100 MG TAB PO SCH (21:17)
[2020-05-12] MEDS: SENNA 8.6 MG TAB (SENOKOT) PO SCH (21:17)
[2020-05-12] MEDS: TOPIRAMATE (TopAMAX) 100 MG TAB PO SCH (21:18)
[2020-05-13] MEDS ORDERED: LEVALBUTEROL 1.25 MG/0.5 ML CONCENTRATE NEB NEB ONE (03:15)
[2020-05-13 06:00] VITALS: BP 131/76
[2020-05-13] MEDS: ACETAMINOPHEN 500 MG TAB PO SCH ×3 (06:00→20:27)
[2020-05-13] MEDS: LEVOTHYROXINE 150MCG TABLET (0.15MG) PO SCH (06:00)
[2020-05-13] MEDS: IPRATROPIUM 0.5MG/ALBUTEROL 2.5MG INH SOL UD 3ML (DUONEB) NEB SCH ×4 (06:13→19:38)
--- NOTE | 2020-05-13 07:40 | REP ---
INDICATION: recent hypoxia/o2 demand in setting of left lung pna. COMPARISON: 05/10/2020. TECHNIQUE: Single AP view of the chest performed portably with the patient upright. FINDINGS: There is a large left lung alveolar infiltrate, parahilar and extending into the left lung inferiorly. This is more radio dense than on the comparison study. There is no infiltrate inferiorly in the right lung, also more radiodense than on the comparison study. There is a left IJ Qtwbob-W-Adwz catheter with the tip in the superior vena cava in satisfactory position. There is an infusion needle in the port. Cardiac size is normal. The nickie, mediastinum, and skeletal structures are unremarkable. IMPRESSION: Bilateral infiltrates there significantly more radiodense than on the comparison study. <Electronically signed by Luis M Riley > 05/13/20 [id number]
[2020-05-13] MEDS: BUDESONIDE 180MCG INHALER (PULMICORT FLEXHALER) INH SCH ×2 (08:00→19:38)
[2020-05-13] MEDS: DOCUSATE SODIUM 100MG CAPSULE PO SCH ×2 (09:51→20:26)
[2020-05-13] MEDS: CALCIUM/VITAMIN D 500 MG TAB PO SCH (09:51)
[2020-05-13] MEDS: SIMVASTATIN 40 MG TAB PO SCH (09:51)
[2020-05-13] MEDS: FUROSEMIDE 20 MG TAB PO SCH (09:51)
[2020-05-13] MEDS: POTASSIUM CHLORIDE 10 MEQ SR TABLET PO SCH ×2 (09:52→20:26)
[2020-05-13] MEDS: guaiFENesin 200 MG TAB PO SCH ×3 (09:52→20:27)
[2020-05-13] MEDS: FERROUS SULFATE 325MG TAB PO SCH ×2 (09:52→20:26)
[2020-05-13] MEDS: LACTOBACILLUS ACIDOPHILUS CAP (BACID) PO SCH ×3 (09:52→20:27)
[2020-05-13] MEDS: PANTOPRAZOLE 40MG TAB (PROTONIX) PO SCH (09:52)
[2020-05-13] MEDS: SODIUM CHLORIDE 0.9% INJ 10 ML SYR IV SCH (09:53)
[2020-05-13] MEDS: CEFDINIR 300 MG CAP (OMNICEF) PO SCH (09:55)
[2020-05-13] MEDS: FLUTICASONE PROP 0.05% NASAL SPRAY 16 GM (FLONASE) NARES SCH ×2 (09:56→20:28)
[2020-05-13] MEDS: BRIMONIDINE 0.15% OPHTH SOLN 5 ML OU SCH ×2 (09:56→20:29)
[2020-05-13] MEDS: SODIUM CHLORIDE NASAL 0.65% SPRAY BTL (OCEAN) SCH ×3 (09:56→20:28)
[2020-05-13] MEDS: REMEDY PHYTOPLEX Z-GUARD PASTE 113GM TUBE (FROM STOREROOM PRODUCT) TOP SCH ×3 (09:57→20:29)
[2020-05-13 10:22] LABS: BASO % 0.2 % (0.0-1.0); EOS # 0.2 10^3/uL (0.0-0.5); EOS % 1.1 % (0.0-3.0); HEMATOCRIT 26.5 % (36.0-47.0); HEMOGLOBIN 8.4 g/dl (12.0-15.5); LYMPH # 0.6 10^3/uL (1.5-5.0); LYMPH % 3.6 % (24.0-44.0); MEAN CORPUSCULAR HEMOGLOBIN 31.1 pg (27.0-33.0); MEAN CORPUSCULAR HGB CONC 31.7 g/dl (32.0-36.5); MEAN CORPUSCULAR VOLUME 98.1 fl (80.0-96.0); MONO # 0.6 10^3/uL (0.0-0.8); NEUTROPHILS # 14.1 10^3/uL (1.5-8.5); NEUTROPHILS % 89.3 % (36.0-66.0); PLATELET COUNT, AUTOMATED 145 10^3/uL (150-450); WHITE BLOOD COUNT 15.8 10^3/uL (4.0-10.0)
[2020-05-13] MEDS ORDERED: NS 1,000 ML IV ONE (10:45)
--- NOTE | 2020-05-13 10:46 | IPNPDOC ---
PM&R Progress Note DATE OF SERVICE: May 12, 2020 Sports Doctor Progress Note SUbjective: Patient reporting she feels her breathing is better today and that she is progressing well in therapy. She states she occasionally gets a chill, but denies fever. REVIEW OF SYSTEMS: The following is a completed review of systems and has been reviewed. Review of systems otherwise unremarkable. PAIN: Patient self reports right hip pain EYES: No recent vision changes EARS, NOSE, & THROAT: No throat pain, or dysphagia, or rhinorrhea, +sinus congestion CARDIOVASCULAR: Denies chest pain or palpitations PULMONARY: Denies shortness of breath, +cough (stable) GASTROINTESTINAL: Denies constipation/diarrhea GENITOURINARY: denies dysuria MUSCULOSKELETAL: s/p right hip fracture NEUROLOGICAL:denies paresthesias HEMATOLOGICAL: +anemia SKIN: right hip incision PSYCHIATRIC: Unremarkable All other review of systems found to be negative. PHYSICAL EXAMINATION: VITAL SIGNS: Please see below. GENERAL: Pleasant and cooperative. No acute distress. HEENT: PERRL. Extraocular movements intact. Clear conjunctiva CARDIOVASCULAR: Regular rate and rhythm. No murmurs, rubs, or gallops, + chest wall port LUNGS: CTA ABDOMEN: Soft, nontender, nondistended. Positive bowel sounds. Normal active bowel sounds NEUROLOGICAL: Alert and oriented to self and time not able to name president Cranial nerves II through XII grossly intact. Sensation grossly intact including 1st dorsal webspace right foot EXTREMITIES: 5-\5 strength bilateral upper extremities. 5-/5 right ankle DF and PF (exam limited due to surgery), 4+/5 LLE bilat LE edema (improving), negative Hallie's SKIN: right hip incision with scant serous drainage, no induration ASSESSMENT:75-year-old F with past medical history of left hip fracture who presents status post right hip fracture PLAN: 1. rehab- PT/OPT advance gait and ADLs, strengthen/stretch/maintain ROM all 4limbs 2. ortho s/p right hip hemiarthropalsty, WBAT with posterolateral hip precautions, ortho consulted 3. cardiac- hx of HTN c/u home meds, medicine consulted to assist in overall management -no recorded CHF, however patient with LE edema, c/u low dose lasix, daily weights, 1800cc fluids, and c/u monitor -HLD- c/u home meds 4. resp- hx of COPD, c/u Duonebs, monitor for infection, patient reporting cough, mild leukocytosis - resp-panel negative -CXR with Left lower lobe consolidation, c/u Cefdinir for left lower lobe pneumonia-clinically stable -c/u guaifenesin -flonase and NS nasal drops for sinus congestion 5. GI ppx- protonix 6. DVT ppx- Xarelto and teds 7. Pain- tylenol and oxyodone prn 8. Psych- depression- c/u geodon, olanzapine, and sertraline 9. Heme- post-op anemia s/p 1 unit rbc 10. DIspo- 05-18-20 to home, progressing towards goals Allergies Coded Allergies: Sulfa (Sulfonamide Antibiotics) (Verified Allergy, Intermediate, HIVES, 02/16/20) Vital Signs Vital Signs Date Time Temp Pulse Resp B/P (MAP) Pulse Ox O2 Delivery O2 Flow Rate FiO2 05/13/20 06:00 100.1 103 20 131/76 (94) 90 Nasal Cannula 2.0 Laboratory Data CBC/BMP Laboratory Tests 05/13/20 10:10 Labs 24H Laboratory Tests 2 05/12/20 11:44: Bedside Glucose (Misc Panel) 95 05/12/20 16:55: Bedside Glucose (Misc Panel) 114H 05/13/20 06:21: Bedside Glucose (Misc Panel) 98 05/13/20 10:10: Immature Granulocyte % (Auto) 1.8, Neutrophils (%) (Auto) 89.3H, Lymphocytes (%) (Auto) 3.6L, Monocytes (%) (Auto) 4.0, Eosinophils (%) (Auto) 1.1, Basophils (%) (Auto) 0.2, Neutrophils # (Auto) 14.1H, Lymphocytes # (Auto) 0.6L, Monocytes # (Auto) 0.6, Eosinophils # (Auto) 0.2, Basophils # (Auto) 0.0, Nucleated Red Blood Cells % (auto) 0.0 Microbiology Microbiology 05/10/20 Respiratory Virus Panel (PCR) ([facility]) - Final, Complete Current Medications Current Medications Current Medications Medications (Trade) Dose Ordered Sig/Bertram Route PRN Reason Start Time Stop Time Status Last Admin Dose Admin Acetaminophen (Tylenol Tab) 1,000 mg TID PO 05/05/20 21:00 05/13/20 06:00 Albuterol/ Ipratropium (Duoneb (Ipr 0.5mg/Alb 2.5mg)) 3 ml RQ4H NEB 05/13/20 12:00 Albuterol/ Ipratropium (Duoneb (Ipr 0.5mg/Alb 2.5mg)) 3 ml RTID NEB 05/05/20 20:00 05/13/20 10:02 DC 05/13/20 06:13 Brimonidine Tartrate (Alphagan P 0.15%) 1 drop BID OU 05/06/20 09:00 05/13/20 09:56 Budesonide (Pulmicort Flexhaler) 2 puff RBID INH 05/13/20 08:00 Calcium/Vitamin D (Oscal D) 500 mg DAILY PO 05/06/20 09:00 05/13/20 09:51 Cefdinir (Omnicef) 300 mg BID PO 05/11/20 09:00 05/13/20 10:40 DC 05/13/20 09:55 Dextrose (Dextrose 50%) 25 ml ASDIRECTED PRN IV SEE LABEL COMMENTS 05/05/20 18:00 Docusate Sodium (Colace) 100 mg BID PO 05/05/20 21:00 05/13/20 09:51 EZETIMIBE (Zetia) 10 mg QHS PO 05/05/20 21:00 05/12/20 21:16 Ferrous Sulfate (Ferrous Sulfate) 325 mg BID PO 05/07/20 09:00 05/13/20 09:52 Fluticasone Propionate (Flonase 0.05% Nasal [place]) 1 spray BID NARES 05/06/20 09:00 05/13/20 09:56 Furosemide (Lasix) 20 mg DAILY PO 05/08/20 09:00 05/13/20 09:51 Glucagon (Glucagon) 1 mg ASDIRECTED PRN SC SEE LABEL COMMENTS 05/05/20 18:00 Glucose (Glucose) 16 GM ASDIRECTED PRN PO SEE LABEL COMMENTS 05/05/20 18:00 Guaifenesin (Robitussin Tab) 400 mg TID PO 05/10/20 16:00 05/13/20 09:52 Heparin Sodium (Heparin (Flush)) 500 units ASDIRECTED PRN IV SEE LABEL COMMENTS 05/06/20 02:15 05/06/20 17:57 Heparin Sodium (Heparin (Flush)) 500 units DAILY IV 05/06/20 09:00 05/13/20 09:53 Home Med (Med Rec Complete!) ASDIRECTED XX 05/05/20 22:00 05/05/20 22:00 DC Insulin Human Lispro (HumaLOG INSULIN) SEE PROTOCOL TABLE AC SC 05/06/20 07:30 05/07/20 16:29 DC 05/07/20 11:51 Insulin Human Lispro (HumaLOG INSULIN) SEE PROTOCOL TABLE QHS SC 05/05/20 21:00 05/07/20 16:29 DC Lactobacillus Acidophilus (Bacid) 1 ea TID PO 05/11/20 09:00 05/13/20 09:52 Levothyroxine Sodium (Synthroid) 150 mcg DAILY@06 PO 05/06/20 06:00 05/13/20 06:00 Olanzapine (ZyPREXA) 15 mg QHS PO 05/06/20 21:00 05/12/20 21:16 Oxycodone HCl (Roxicodone, Oxyir) 5 mg Q4HP PRN PO PAIN 05/05/20 18:00 05/08/20 14:13 Pantoprazole Sodium (Protonix) 40 mg DAILY PO 05/06/20 09:00 05/13/20 09:52 Piperacillin Sod/ Tazobactam Sod 4.5 gm/Dextrose 50 ml @ 50 mls/hr Q6H IV 05/13/20 10:30 UNV Potassium Chloride (Micro-K Extencaps) 10 meq BID PO 05/05/20 21:00 05/13/20 09:52 Rivaroxaban (Xarelto) 10 mg DAILY@1800 PO 05/06/20 18:00 05/12/20 17:41 Senna (Senokot) 1 tab QHS PO 05/05/20 21:00 05/12/20 21:17 Sertraline HCl (Zoloft) 200 mg QHS PO 05/06/20 21:00 05/12/20 21:17 Simvastatin (Zocor) 40 mg DAILY PO 05/06/20 09:00 05/13/20 09:51 Sodium Chloride ([place] Nasal [place]) 2 spray TID NA 05/06/20 09:00 05/13/20 09:56 Sodium Chloride (Saline Lock Flush) 10 ml ASDIRECTED PRN IV SEE LABEL COMMENTS 05/06/20 02:15 05/06/20 17:57 Sodium Chloride (Saline Lock Flush) 10 ml DAILY IV 05/06/20 09:00 05/13/20 09:53 Topiramate (TopAMAX) 200 mg QHS PO 05/06/20 21:00 05/12/20 21:18 Ziprasidone (Geodon) 80 mg DAILY@18 PO 05/06/20 18:00 05/12/20 17:41 CHARU LOVELL MD May 13, 2020 10:46
--- NOTE | 2020-05-13 10:53 | IPNPDOC ---
PM&R Progress Note DATE OF SERVICE: May 13, 2020 Ep Technologist Progress Note SUbjective: Patient reporting she feels a little dizzy and weak today and had a difficult night reporting she felt more short of breath. She was seen moving around her room following a breathing treatment and she said she was feeling a little better. REVIEW OF SYSTEMS: The following is a completed review of systems and has been reviewed. Review of systems otherwise unremarkable. PAIN: Patient self reports right hip pain EYES: No recent vision changes EARS, NOSE, & THROAT: No throat pain, or dysphagia, or rhinorrhea, +sinus congestion CARDIOVASCULAR: Denies chest pain or palpitations PULMONARY: Denies shortness of breath, +cough (stable) GASTROINTESTINAL: Denies constipation/diarrhea GENITOURINARY: denies dysuria MUSCULOSKELETAL: s/p right hip fracture NEUROLOGICAL:denies paresthesias HEMATOLOGICAL: +anemia SKIN: right hip incision PSYCHIATRIC: Unremarkable All other review of systems found to be negative. PHYSICAL EXAMINATION: VITAL SIGNS: Please see below. GENERAL: Pleasant and cooperative. No acute distress. HEENT: PERRL. Extraocular movements intact. Clear conjunctiva CARDIOVASCULAR: Regular rate and rhythm. No murmurs, rubs, or gallops, + chest wall port LUNGS: CTA ABDOMEN: Soft, nontender, nondistended. Positive bowel sounds. Normal active bowel sounds NEUROLOGICAL: Alert and oriented to self and time not able to name president Cranial nerves II through XII grossly intact. Sensation grossly intact including 1st dorsal webspace right foot EXTREMITIES: 5-\\5 strength bilateral upper extremities. 5-/5 right ankle DF and PF (exam limited due to surgery), 4+/5 LLE bilat LE edema (improving), negative Hallie's SKIN: right hip incision with scant serous drainage, no induration ASSESSMENT:75-year-old F with past medical history of left hip fracture who presents status post right hip fracture PLAN: 1. rehab- PT/OPT advance gait and ADLs, strengthen/stretch/maintain ROM all 4limbs 2. ortho s/p right hip hemiarthropalsty, WBAT with posterolateral hip precautions, ortho consulted 3. cardiac- hx of HTN c/u home meds, medicine consulted to assist in overall management -no recorded CHF, however patient with LE edema, c/u low dose lasix, daily weights, 1800cc fluids, and c/u monitor -HLD- c/u home meds 4. resp- hx of COPD now with left lower lobe pneumonia -CXR with Left lower lobe consolidation (05-10-20), patient's leukocytosis worse today despite oral Cefdinir, repeat CXR this am ordered due to increased shortness of breath and hypoxia showing, "There is a large left lung alveolar infiltrate, parahilar and extending into the left lung inferiorly. This is more radio dense than on the comparison study. There is no infiltrate inferiorly in the right lung, also more radiodense than on the comparison study."- will switch to IV Zosyn for HAP and start gentle hydration- patient is clinically stable at this time and able to participate in therapy, but walking shorter distances and requiring more respiratory support- will increase Duonebs to q4h standing and add inhaled corticosteroid -discussed case with daughter who reports her mother immunotherapy treatment for lung cancer was postponed due to this admission, will order CT chest while inhouse -c/u guaifenesin -flonase and NS nasal drops for sinus congestion - resp-panel negative 5. GI ppx- protonix 6. DVT ppx- Xarelto and teds- will order Dopplers to r/o DVT due to hypoxia 7. Pain- tylenol and oxyodone prn 8. Psych- depression- c/u geodon, olanzapine, and sertraline 9. Heme- post-op anemia s/p 1 unit rbc 10. DIspo- will likely postpone dc of 05-18-20 due to worsening respiratory infection Allergies Coded Allergies: Sulfa (Sulfonamide Antibiotics) (Verified Allergy, Intermediate, HIVES, 02/16/20) Vital Signs Vital Signs Date Time Temp Pulse Resp B/P (MAP) Pulse Ox O2 Delivery O2 Flow Rate FiO2 05/13/20 06:00 100.1 103 20 131/76 (94) 90 Nasal Cannula 2.0 Laboratory Data CBC/BMP Laboratory Tests 05/13/20 10:10 Labs 24H Laboratory Tests 2 05/12/20 11:44: Bedside Glucose (Misc Panel) 95 05/12/20 16:55: Bedside Glucose (Misc Panel) 114H 05/13/20 06:21: Bedside Glucose (Misc Panel) 98 05/13/20 10:10: Immature Granulocyte % (Auto) 1.8, Neutrophils (%) (Auto) 89.3H, Lymphocytes (%) (Auto) 3.6L, Monocytes (%) (Auto) 4.0, Eosinophils (%) (Auto) 1.1, Basophils (%) (Auto) 0.2, Neutrophils # (Auto) 14.1H, Lymphocytes # (Auto) 0.6L, Monocytes # (Auto) 0.6, Eosinophils # (Auto) 0.2, Basophils # (Auto) 0.0, Nucleated Red Blood Cells % (auto) 0.0 Microbiology Microbiology 05/10/20 Respiratory Virus Panel (PCR) ([facility]) - Final, Complete Current Medications Current Medications Current Medications Medications (Trade) Dose Ordered Sig/Bertram Route PRN Reason Start Time Stop Time Status Last Admin Dose Admin Acetaminophen (Tylenol Tab) 1,000 mg TID PO 05/05/20 21:00 05/13/20 06:00 Albuterol/ Ipratropium (Duoneb (Ipr 0.5mg/Alb 2.5mg)) 3 ml RQ4H NEB 05/13/20 12:00 Albuterol/ Ipratropium (Duoneb (Ipr 0.5mg/Alb 2.5mg)) 3 ml RTID NEB 05/05/20 20:00 05/13/20 10:02 DC 05/13/20 06:13 Brimonidine Tartrate (Alphagan P 0.15%) 1 drop BID OU 05/06/20 09:00 05/13/20 09:56 Budesonide (Pulmicort Flexhaler) 2 puff RBID INH 05/13/20 08:00 Calcium/Vitamin D (Oscal D) 500 mg DAILY PO 05/06/20 09:00 05/13/20 09:51 Cefdinir (Omnicef) 300 mg BID PO 05/11/20 09:00 05/13/20 10:40 DC 05/13/20 09:55 Dextrose (Dextrose 50%) 25 ml ASDIRECTED PRN IV SEE LABEL COMMENTS 05/05/20 18:00 Docusate Sodium (Colace) 100 mg BID PO 05/05/20 21:00 05/13/20 09:51 EZETIMIBE (Zetia) 10 mg QHS PO 05/05/20 21:00 05/12/20 21:16 Ferrous Sulfate (Ferrous Sulfate) 325 mg BID PO 05/07/20 09:00 05/13/20 09:52 Fluticasone Propionate (Flonase 0.05% Nasal [place]) 1 spray BID NARES 05/06/20 09:00 05/13/20 09:56 Furosemide (Lasix) 20 mg DAILY PO 05/08/20 09:00 05/13/20 09:51 Glucagon (Glucagon) 1 mg ASDIRECTED PRN SC SEE LABEL COMMENTS 05/05/20 18:00 Glucose (Glucose) 16 GM ASDIRECTED PRN PO SEE LABEL COMMENTS 05/05/20 18:00 Guaifenesin (Robitussin Tab) 400 mg TID PO 05/10/20 16:00 05/13/20 09:52 Heparin Sodium (Heparin (Flush)) 500 units ASDIRECTED PRN IV SEE LABEL COMMENTS 05/06/20 02:15 05/06/20 17:57 Heparin Sodium (Heparin (Flush)) 500 units DAILY IV 05/06/20 09:00 05/13/20 09:53 Home Med (Med Rec Complete!) ASDIRECTED XX 05/05/20 22:00 05/05/20 22:00 DC Insulin Human Lispro (HumaLOG INSULIN) SEE PROTOCOL TABLE AC SC 05/06/20 07:30 05/07/20 16:29 DC 05/07/20 11:51 Insulin Human Lispro (HumaLOG INSULIN) SEE PROTOCOL TABLE QHS SC 05/05/20 21:00 05/07/20 16:29 DC Lactobacillus Acidophilus (Bacid) 1 ea TID PO 05/11/20 09:00 05/13/20 09:52 Levothyroxine Sodium (Synthroid) 150 mcg DAILY@06 PO 05/06/20 06:00 05/13/20 06:00 Olanzapine (ZyPREXA) 15 mg QHS PO 05/06/20 21:00 05/12/20 21:16 Oxycodone HCl (Roxicodone, Oxyir) 5 mg Q4HP PRN PO PAIN 05/05/20 18:00 05/08/20 14:13 Pantoprazole Sodium (Protonix) 40 mg DAILY PO 05/06/20 09:00 05/13/20 09:52 Piperacillin Sod/ Tazobactam Sod 4.5 gm/Dextrose 50 ml @ 50 mls/hr Q6H IV 05/13/20 10:30 UNV Potassium Chloride (Micro-K Extencaps) 10 meq BID PO 05/05/20 21:00 05/13/20 09:52 Rivaroxaban (Xarelto) 10 mg DAILY@1800 PO 05/06/20 18:00 05/12/20 17:41 Senna (Senokot) 1 tab QHS PO 05/05/20 21:00 05/12/20 21:17 Sertraline HCl (Zoloft) 200 mg QHS PO 05/06/20 21:00 05/12/20 21:17 Simvastatin (Zocor) 40 mg DAILY PO 05/06/20 09:00 05/13/20 09:51 Sodium Chloride ([place] Nasal [place]) 2 spray TID NA 05/06/20 09:00 05/13/20 09:56 Sodium Chloride (Saline Lock Flush) 10 ml ASDIRECTED PRN IV SEE LABEL COMMENTS 05/06/20 02:15 05/06/20 17:57 Sodium Chloride (Saline Lock Flush) 10 ml DAILY IV 05/06/20 09:00 05/13/20 09:53 Topiramate (TopAMAX) 200 mg QHS PO 05/06/20 21:00 05/12/20 21:18 Ziprasidone (Geodon) 80 mg DAILY@18 PO 05/06/20 18:00 05/12/20 17:41 CHARU LOVELL MD May 13, 2020 10:53
--- NOTE | 2020-05-13 12:18 | REP ---
INDICATION: immobility COMPARISON: None. FINDINGS: The deep veins demonstrate normal compression, normal Doppler color flow and normal Doppler waveforms with respiration augmentation from the popliteal veins to the common femoral veins bilaterally. IMPRESSION: There is no deep vein thrombus in the right or left lower extremities. <Electronically signed by Luis M Riley > 05/13/20 [id number]
[2020-05-13] MEDS: PIPERACILLIN/TAZOBACTAM SOD 4.5 GM in D5W MINI-BAG PLUS 50 ML IV SCH ×3 (12:55→23:46)
[2020-05-13 14:00] VITALS: BP 134/63
--- NOTE | 2020-05-13 15:24 | REP ---
INDICATION: remark on mass in setting of cancer and infiltrates. COMPARISON: PA and lateral plain film study of the chest dated 05/10/2020 and portable plain film study of the chest dated 05/13/2020. TECHNIQUE: Chest CT without IV contrast. FINDINGS: There is a large opacity posteromedially in the right upper lobe containing air bronchograms compatible with a right upper lobe infiltrate. This is not readily apparent on the comparison plain film studies and is more apparent on a by CT. There are small bilateral pleural effusions, also better appreciated by CT than plain films. There are numerous bulla replacing the lung parenchyma bilaterally. Throughout the lung hartley interspersed among these bulla are large areas of confluent opacity bilaterally. These could represent large confluent bilateral infiltrates, normal lung parenchyma interspersed among the numerous bulla or combination. IMPRESSION: Large right upper lobe posteromedial infiltrate. Small bilateral pleural effusions Numerous bulla replacing the lung parenchyma bilaterally. Large areas of confluent opacity throughout the lung hartley bilaterally interspersed throughout the bulla. These are nonspecific and could represent, , infiltrates , areas of normal lung parenchyma or combination. Neoplasm is not entirely discounted and could be hidden among the areas of opacity. <Electronically signed by Luis M Riley > 05/13/20 [id number]
[2020-05-13] MEDS: RIVAROXABAN 10 MG TAB (XARELTO) PO SCH (17:37)
[2020-05-13] MEDS: ZIPRASIDONE 80 MG CAP (GEODON) PO SCH (17:37)
[2020-05-13 18:00] VITALS: BP 125/58
[2020-05-13 19:12] LABS: C REACTIVE PROTEIN QUANTITATIV 31.7 MG/DL (0.00-0.30)
[2020-05-13 20:15] VITALS: BP 128/59
[2020-05-13] MEDS: TOPIRAMATE (TopAMAX) 100 MG TAB PO SCH (20:26)
[2020-05-13] MEDS: EZETIMIBE 10 MG TAB (ZETIA) PO SCH (20:26)
[2020-05-13] MEDS: SENNA 8.6 MG TAB (SENOKOT) PO SCH (20:27)
[2020-05-13] MEDS: SERTRALINE 100 MG TAB PO SCH (20:27)
[2020-05-13] MEDS: OLANZapine 10 MG TAB PO SCH (20:29)
[2020-05-14 00:19] VITALS: BP 120/79
[2020-05-14 04:00] VITALS: BP 128/73
[2020-05-14] MEDS: IPRATROPIUM 0.5MG/ALBUTEROL 2.5MG INH SOL UD 3ML (DUONEB) NEB SCH ×5 (04:00→15:19)
[2020-05-14] MEDS ORDERED: LEVALBUTEROL 1.25 MG/0.5 ML CONCENTRATE NEB NEB ONE (04:15)
[2020-05-14] MEDS: PIPERACILLIN/TAZOBACTAM SOD 4.5 GM in D5W MINI-BAG PLUS 50 ML IV SCH ×2 (05:26→12:44)
[2020-05-14] MEDS: LEVOTHYROXINE 150MCG TABLET (0.15MG) PO SCH (05:26)
[2020-05-14 06:50] LABS: BASO % 0.3 % (0.0-1.0); EOS # 0.2 10^3/uL (0.0-0.5); EOS % 1.5 % (0.0-3.0); HEMATOCRIT 26.6 % (36.0-47.0); HEMOGLOBIN 8.2 g/dl (12.0-15.5); LYMPH # 0.4 10^3/uL (1.5-5.0); LYMPH % 2.8 % (24.0-44.0); MEAN CORPUSCULAR HEMOGLOBIN 30.9 pg (27.0-33.0); MEAN CORPUSCULAR HGB CONC 30.8 g/dl (32.0-36.5); MEAN CORPUSCULAR VOLUME 100.4 fl (80.0-96.0); MONO # 0.5 10^3/uL (0.0-0.8); MONO % 3.3 % (0.0-5.0); NEUTROPHILS # 14.1 10^3/uL (1.5-8.5); NEUTROPHILS % 90.2 % (36.0-66.0); PLATELET COUNT, AUTOMATED 139 10^3/uL (150-450); RED BLOOD COUNT 2.65 10^6/uL (4.00-5.40); WHITE BLOOD COUNT 15.6 10^3/uL (4.0-10.0)
[2020-05-14 07:15] LABS: BLOOD UREA NITROGEN 10 MG/DL (7-18); CALCIUM LEVEL 7.9 MG/DL (8.8-10.2); CARBON DIOXIDE LEVEL 21 MEQ/L (21-32); CHLORIDE LEVEL 106 MEQ/L (98-107); GLOMERULAR FILTRATION RATE > 60.0 (>39); GLUCOSE, FASTING 144 MG/DL (70-100); POTASSIUM SERUM 3.2 MEQ/L (3.5-5.1); SODIUM LEVEL 137 MEQ/L (136-145)
[2020-05-14 08:00] VITALS: BP 129/60
[2020-05-14] MEDS: BUDESONIDE 180MCG INHALER (PULMICORT FLEXHALER) INH SCH (08:00)
[2020-05-14] MEDS: REMEDY PHYTOPLEX Z-GUARD PASTE 113GM TUBE (FROM STOREROOM PRODUCT) TOP SCH ×2 (09:00→15:22)
[2020-05-14] MEDS ORDERED: NS 1,000 ML IV ONE (09:00)
[2020-05-14] MEDS ORDERED: POTASSIUM CHLORIDE 10 MEQ SR TABLET PO ONE (09:00)
[2020-05-14] MEDS: BRIMONIDINE 0.15% OPHTH SOLN 5 ML OU SCH (09:00)
[2020-05-14] MEDS: LACTOBACILLUS ACIDOPHILUS CAP (BACID) PO SCH ×2 (09:24→15:21)
[2020-05-14] MEDS: guaiFENesin 200 MG TAB PO SCH ×2 (09:24→15:21)
[2020-05-14] MEDS: FERROUS SULFATE 325MG TAB PO SCH (09:24)
[2020-05-14] MEDS: FUROSEMIDE 20 MG TAB PO SCH (09:24)
[2020-05-14] MEDS: ACETAMINOPHEN 500 MG TAB PO SCH ×2 (09:24→15:22)
[2020-05-14] MEDS: SIMVASTATIN 40 MG TAB PO SCH (09:24)
[2020-05-14] MEDS: SODIUM CHLORIDE 0.9% INJ 10 ML SYR IV SCH (09:24)
[2020-05-14] MEDS: PANTOPRAZOLE 40MG TAB (PROTONIX) PO SCH (09:25)
[2020-05-14] MEDS: CALCIUM/VITAMIN D 500 MG TAB PO SCH (09:25)
[2020-05-14] MEDS: SODIUM CHLORIDE NASAL 0.65% SPRAY BTL (OCEAN) SCH ×2 (09:28→15:22)
[2020-05-14] MEDS: DOCUSATE SODIUM 100MG CAPSULE PO SCH (09:28)
[2020-05-14] MEDS: FLUTICASONE PROP 0.05% NASAL SPRAY 16 GM (FLONASE) NARES SCH (09:28)
[2020-05-14 09:30] VITALS: BP 136/60
[2020-05-14] MEDS: POTASSIUM CHLORIDE 10 MEQ SR TABLET PO SCH (09:36)
[2020-05-14] MEDS ORDERED: ISOVUE-370 76% 100ML VIAL As Ordered ONE (09:46)
[2020-05-14] MEDS ORDERED: SENN18TA PO (10:25)
[2020-05-14] MEDS ORDERED: ZOSY1SOL6 IV (10:25)
[2020-05-14] MEDS ORDERED: OXYC-517 PO (10:26)
[2020-05-14] MEDS ORDERED: DOK1CAP7 PO (10:26)
[2020-05-14] MEDS ORDERED: ACET-683 PO (10:26)
[2020-05-14] MEDS ORDERED: FERR325T18 PO (10:26)
[2020-05-14] MEDS ORDERED: RISATAB3 PO (10:26)
[2020-05-14] MEDS ORDERED: BUDE180INH INH (10:26)
[2020-05-14] MEDS ORDERED: PANT40TA29 PO (10:26)
--- NOTE | 2020-05-14 10:51 | REP ---
INDICATION: rule out pulmonary embolism. COMPARISON: Chest CT dated 05/13/2020 without IV contrast TECHNIQUE: Chest CT with IV contrast, CT pulmonary angiography. FINDINGS: There are no emboli in the pulmonary trunk or central right or left pulmonary arteries. There are no emboli in the pulmonary artery lobe or segment branches. There is an infiltrate posteromedially in the right upper lobe, unchanged from the comparison study. There are numerous bulla replacing the lung parenchyma throughout the lung hartley bilaterally. Interspersed among these bulla are large confluent areas of lung opacity as previously, unchanged. There small bilateral pleural effusions. IMPRESSION: No pulmonary emboli are identified. The lung hartley are unchanged from the comparison study. <Electronically signed by Luis M Riley > 05/14/20 [id number]
--- NOTE | 2020-05-14 11:01 | IPNPDOC ---
PM&R Progress Note DATE OF SERVICE: May 14, 2020 Hepatology Physician Progress Note SUbjective: Patient seen in her room on venturi mask not appearing in distress and able to respond appropriately, denies chest pain, says her breathing is a little better now. She understands she is goign to have another CT of her chest to rule out a clot and that she will be transferred to higher level of care for closer monitoring. REVIEW OF SYSTEMS: The following is a completed review of systems and has been reviewed. Review of systems otherwise unremarkable. PAIN: Patient self reports right hip pain EYES: No recent vision changes EARS, NOSE, & THROAT: No throat pain, or dysphagia, or rhinorrhea, +sinus congestion CARDIOVASCULAR: Denies chest pain or palpitations PULMONARY: Denies shortness of breath, +cough (stable) GASTROINTESTINAL: Denies constipation/diarrhea GENITOURINARY: denies dysuria MUSCULOSKELETAL: s/p right hip fracture NEUROLOGICAL:denies paresthesias HEMATOLOGICAL: +anemia SKIN: right hip incision PSYCHIATRIC: Unremarkable All other review of systems found to be negative. PHYSICAL EXAMINATION: VITAL SIGNS: Please see below. GENERAL: Pleasant and cooperative. No acute distress. HEENT: PERRL. Extraocular movements intact. Clear conjunctiva CARDIOVASCULAR: Regular rate and rhythm. No murmurs, rubs, or gallops, + chest wall port LUNGS: CTA ABDOMEN: Soft, nontender, nondistended. Positive bowel sounds. Normal active bowel sounds NEUROLOGICAL: Alert and oriented to self and time not able to name president Cranial nerves II through XII grossly intact. Sensation grossly intact including 1st dorsal webspace right foot EXTREMITIES: 5-\\5 strength bilateral upper extremities. 5-/5 right ankle DF and PF (exam limited due to surgery), 4+/5 LLE bilat LE edema (improving), negative Hallie's SKIN: right hip incision with scant serous drainage, no induration ASSESSMENT:75-year-old F with past medical history of left hip fracture who presents status post right hip fracture PLAN: 1. rehab- PT/OPT advance gait and ADLs, strengthen/stretch/maintain ROM all 4limbs 2. ortho s/p right hip hemiarthropalsty, WBAT with posterolateral hip precautions, ortho consulted 3. cardiac- hx of HTN c/u home meds, medicine consulted to assist in overall management -no recorded CHF, however patient with LE edema, c/u low dose lasix, daily weights, 1800cc fluids, and c/u monitor -HLD- c/u home meds 4. resp- hx of COPD now with left lower lobe pneumonia on CXR and CT revealing right sided infiltrate as well -CXR with Left lower lobe consolidation (05-10-20), patient's leukocytosis worse today despite oral Cefdinir, repeat CXR this am ordered due to increased shortness of breath and hypoxia showing, "There is a large left lung alveolar infiltrate, parahilar and extending into the left lung inferiorly. This is more radio dense than on the comparison study. There is no infiltrate inferiorly in the right lung, also more radiodense than on the comparison study."- c/u IV Zosyn for HAP and gentle hydration- patient to be transferred off ARU as requiring increased 02 support -although patient's respiratory symptoms can be explained by her bilateral PNA , I ordered stat CT- angio chest to r/o PE (doppler's negative for DVT) while awaiting transfer -discussed case with daughter on 05-13-20 who reports her mother's immunotherapy treatment for lung cancer was postponed due to this admission and ordered CT chest 05-13-20 to determine if new or developing neoplasm- will push image to Dr. Tyler patient's oncologist per daughter's request as she is overdue for treatment -c/u guaifenesin, duonebs, ICS -flonase and NS nasal drops for sinus congestion - resp-panel negative, covid negative 5. GI ppx- protonix 6. DVT ppx- Xarelto and teds- dopplers negative for dvt 7. Pain- tylenol and oxyodone prn 8. Psych- depression- c/u geodon, olanzapine, and sertraline 9. Heme- post-op anemia s/p 1 unit rbc 10. DIspo- will transfer to inpatient for closer monitoring as patient requiring more 02 support Allergies Coded Allergies: Sulfa (Sulfonamide Antibiotics) (Verified Allergy, Intermediate, HIVES, 02/16/20) Vital Signs Vital Signs Date Time Temp Pulse Resp B/P (MAP) Pulse Ox O2 Delivery O2 Flow Rate FiO2 05/14/20 09:30 100.8 114 36 136/60 (85) 97 Non-Rebreather 12.0 Laboratory Data CBC/BMP Laboratory Tests 05/14/20 06:32 Labs 24H Laboratory Tests 2 05/13/20 17:39: D-Dimer, Quantitative > 4000H, Ferritin 1893H, Lactate Dehydrogenase 433H, C-Reactive Protein, Quantitative 31.70H, Procalcitonin 0.63 05/14/20 03:20: Coronavirus (COVID-19)(PCR) NEGATIVE 05/14/20 06:32: Immature Granulocyte % (Auto) 1.9, Neutrophils (%) (Auto) 90.2H, Lymphocytes (%) (Auto) 2.8L, Monocytes (%) (Auto) 3.3, Eosinophils (%) (Auto) 1.5, Basophils (%) (Auto) 0.3, Neutrophils # (Auto) 14.1H, Lymphocytes # (Auto) 0.4L, Monocytes # (Auto) 0.5, Eosinophils # (Auto) 0.2, Basophils # (Auto) 0.0, Nucleated Red Blood Cells % (auto) 0.0, Anion Gap 10, Glomerular Filtration Rate > 60.0, Calcium Level 7.9L Microbiology Microbiology 05/10/20 Respiratory Virus Panel (PCR) ([facility]) - Final, Complete Current Medications Current Medications Current Medications Medications (Trade) Dose Ordered Sig/Bertram Route PRN Reason Start Time Stop Time Status Last Admin Dose Admin Acetaminophen (Tylenol Tab) 1,000 mg TID PO 05/05/20 21:00 05/14/20 09:24 Albuterol/ Ipratropium (Duoneb (Ipr 0.5mg/Alb 2.5mg)) 3 ml RQ4H NEB 05/13/20 12:00 05/14/20 09:23 Albuterol/ Ipratropium (Duoneb (Ipr 0.5mg/Alb 2.5mg)) 3 ml RTID NEB 05/05/20 20:00 05/13/20 10:02 DC 05/13/20 06:13 Brimonidine Tartrate (Alphagan P 0.15%) 1 drop BID OU 05/06/20 09:00 05/13/20 20:29 Budesonide (Pulmicort Flexhaler) 2 puff RBID INH 05/13/20 08:00 Calcium/Vitamin D (Oscal D) 500 mg DAILY PO 05/06/20 09:00 05/14/20 09:25 Cefdinir (Omnicef) 300 mg BID PO 05/11/20 09:00 05/13/20 10:40 DC 05/13/20 09:55 Dextrose (Dextrose 50%) 25 ml ASDIRECTED PRN IV SEE LABEL COMMENTS 05/05/20 18:00 Docusate Sodium (Colace) 100 mg BID PO 05/05/20 21:00 05/14/20 09:28 EZETIMIBE (Zetia) 10 mg QHS PO 05/05/20 21:00 05/13/20 20:26 Ferrous Sulfate (Ferrous Sulfate) 325 mg BID PO 05/07/20 09:00 05/14/20 09:24 Fluticasone Propionate (Flonase 0.05% Nasal [place]) 1 spray BID NARES 05/06/20 09:00 05/14/20 09:28 Furosemide (Lasix) 20 mg DAILY PO 05/08/20 09:00 05/14/20 09:24 Glucagon (Glucagon) 1 mg ASDIRECTED PRN SC SEE LABEL COMMENTS 05/05/20 18:00 Glucose (Glucose) 16 GM ASDIRECTED PRN PO SEE LABEL COMMENTS 05/05/20 18:00 Guaifenesin (Robitussin Tab) 400 mg TID PO 05/10/20 16:00 05/14/20 09:24 Heparin Sodium (Heparin (Flush)) 500 units ASDIRECTED PRN IV SEE LABEL COMMENTS 05/06/20 02:15 05/06/20 17:57 Heparin Sodium (Heparin (Flush)) 500 units DAILY IV 05/06/20 09:00 05/14/20 09:24 Home Med (Med Rec Complete!) ASDIRECTED XX 05/05/20 22:00 05/05/20 22:00 DC Insulin Human Lispro (HumaLOG INSULIN) SEE PROTOCOL TABLE AC SC 05/06/20 07:30 05/07/20 16:29 DC 05/07/20 11:51 Insulin Human Lispro (HumaLOG INSULIN) SEE PROTOCOL TABLE QHS SC 05/05/20 21:00 05/07/20 16:29 DC Lactobacillus Acidophilus (Bacid) 1 ea TID PO 05/11/20 09:00 05/14/20 09:24 Levothyroxine Sodium (Synthroid) 150 mcg DAILY@06 PO 05/06/20 06:00 05/14/20 05:26 Olanzapine (ZyPREXA) 15 mg QHS PO 05/06/20 21:00 05/13/20 20:29 Oxycodone HCl (Roxicodone, Oxyir) 5 mg Q4HP PRN PO PAIN 05/05/20 18:00 05/08/20 14:13 Pantoprazole Sodium (Protonix) 40 mg DAILY PO 05/06/20 09:00 05/14/20 09:25 Piperacillin Sod/ Tazobactam Sod 4.5 gm/Dextrose 50 ml @ 50 mls/hr Q6H IV 05/13/20 12:00 05/14/20 05:26 Potassium Chloride (Micro-K Extencaps) 10 meq BID PO 05/05/20 21:00 05/14/20 09:36 Rivaroxaban (Xarelto) 10 mg DAILY@1800 PO 05/06/20 18:00 05/13/20 17:37 Senna (Senokot) 1 tab QHS PO 05/05/20 21:00 05/13/20 20:27 Sertraline HCl (Zoloft) 200 mg QHS PO 05/06/20 21:00 05/13/20 20:27 Simvastatin (Zocor) 40 mg DAILY PO 05/06/20 09:00 05/14/20 09:24 Sodium Chloride ([place] Nasal [place]) 2 spray TID NA 05/06/20 09:00 05/14/20 09:28 Sodium Chloride (Saline Lock Flush) 10 ml ASDIRECTED PRN IV SEE LABEL COMMENTS 05/06/20 02:15 05/06/20 17:57 Sodium Chloride (Saline Lock Flush) 10 ml DAILY IV 05/06/20 09:00 05/14/20 09:24 Topiramate (TopAMAX) 200 mg QHS PO 05/06/20 21:00 05/13/20 20:26 Ziprasidone (Geodon) 80 mg DAILY@18 PO 05/06/20 18:00 05/13/20 17:37 CHARU LOVELL MD May 14, 2020 11:01
[2020-05-14] MEDS ORDERED: dexameTHASONE 20MG/5ML VIAL (J1100 PER 1MG) IV STA (11:55)
[2020-05-14 14:00] VITALS: BP 115/56
--- NOTE | 2020-05-18 11:30 | PMRDS ---
NAME: [facility] WT ID#: [id number] : [id number] JOB: [id number] WILNER: 05/14/2020 ACCT: [id number] DOCTOR: CHARU LOVELL MD PMR DISCHARGE SUMMARY DATE OF ADMISSION: 05/05/2020 DATE OF DISCHARGE: 05/14/2020 CHIEF COMPLAINT/DISCHARGE DIAGNOSES: 1. Right hip fracture. 2. Pneumonia. BRIEF HISTORY: This is a 75-year-old female with past medical history of CKD 3, diabetes type 2, COPD not on home oxygen, dementia, lung cancer, major depressive disorder, status post left total hip replacement performed December,, who had a fall at home and presented a few weeks after with difficulty ambulating and was noted by orthopedics at an outpatient visit to have right-sided hip fracture with x-rays on 05/03/20 showing "right femoral neck fracture with superior displacement of right femoral shaft". She was cleared by medicine and underwent right hip hemiarthroplasty on 05/05/2020. She was noted to be anemic prior to surgery and required supplemental oxygen. She was evaluated by therapy and found to have impairments in immobility and ADLs and deemed medically appropriate for discharge to ARU. PAST MEDICAL HISTORY: As per HPI. HOSPITAL COURSE: The patient was admitted and enrolled in comprehensive PT/OT program. She received 24 hour nursing supervision and weekly team meetings were held to discuss her progress. The patient developed lower extremity edema and was started on a low dose of Lasix and placed on fluid restriction for suspected CHF. She received one unit of red blood cells for postop anemia and was maintained on prophylactic Xarelto for DVT prophylaxis. The patient developed cough and sneeze for which chest x-ray revealed left-sided pneumonia and she was started on oral antibiotics with initial response to treatment and able to participate while in therapy. However, the patient eventually had worsening fever and hypoxia with follow up CT chest showing right-sided pneumonia as well. The patient was started on IV antibiotics, given high flow nasal cannula, Dopplers were ordered to rule out DVT which was negative. CT angio was ordered to rule out PE which was also negative and the patient was eventually determined to be unstable for ARU level of care and was transferred to PCU on 05/14/2020. DISCHARGE MEDICATIONS: As per instructions. FUNCTIONAL HISTORY: On discharge the patient was standby assist for functional transfers and ambulation. Thank you for this referral.
== END 2020-05-14 15:52 | disposition short-term general hospital (02) | DRG 559 ==
LOC: M PM&R 20:30
PROVIDERS: ADMIT Physical Medicine & Rehabilitation; ATTEND Physical Medicine & Rehabilitation
PROC: 30233N1 Transfusion of Nonautologous Red Blood Cells into Peripheral Vein, Percutaneous Approach (ICD-10-PCS; principal; 2020-05-06)
DX: S72.001D Fracture of unspecified part of neck of right femur, subsequent encounter for closed fracture with routine healing (principal); J18.9 Pneumonia, unspecified organism; N18.30 Chronic kidney disease, stage 3 unspecified; E11.22 Type 2 diabetes mellitus with diabetic chronic kidney disease; J44.9 Chronic obstructive pulmonary disease, unspecified; F03.90 Unspecified dementia, unspecified severity, without behavioral disturbance, psychotic disturbance, mood disturbance, and anxiety; W19.XXXD Unspecified fall, subsequent encounter; Y92.009 Unspecified place in unspecified non-institutional (private) residence as the place of occurrence of the external cause; Z96.641 Presence of right artificial hip joint; D64.9 Anemia, unspecified; Z74.09 Other reduced mobility; I50.9 Heart failure, unspecified

== ENCOUNTER 2020-05-14 11:04 | Inpatient (IN) | payer MEDICARE, BC, OTHER ==
[~2020-05-14] VITALS: Ht 165.1 cm; Wt 78.3 kg
[~2020-05-14 11:04] MED LIST changes: +ACET-683 PO; +BUDE180INH INH; +DOK1CAP7 PO; +FERR325T18 PO; +OXYC-517 PO; +OXYC1TAB23 PO; +PANT40TA29 PO; +PERC5TAB12 PO; +RISATAB3 PO; +SENN18TA PO; +XARE10TA PO; +ZOSY1SOL6 IV
[2020-05-14 16:00] VITALS: BP 129/61
[2020-05-14] MEDS ORDERED: IPRATROPIUM 0.5MG/ALBUTEROL 2.5MG INH SOL UD 3ML (DUONEB) NEB PRN (16:15)
[2020-05-14] MEDS: PIPERACILLIN/TAZOBACTAM SOD 4.5 GM in D5W MINI-BAG PLUS 50 ML IV SCH ×2 (18:22→23:49)
[2020-05-14] MEDS: RIVAROXABAN 10 MG TAB (XARELTO) PO SCH (18:22)
[2020-05-14] MEDS: ZIPRASIDONE 80 MG CAP (GEODON) PO SCH (18:22)
[2020-05-14] MEDS ORDERED: GLUCOSE 4GM CHEW TABLET PO PRN (19:45)
[2020-05-14] MEDS ORDERED: DEXTROSE 50% 50 ML SYRINGE IV PRN (19:45)
[2020-05-14] MEDS ORDERED: GLUCAGON INJ 1MG VIAL SC PRN (19:45)
--- NOTE | 2020-05-14 19:48 | HPEPDOC ---
General Date of Admission May 14, 2020 Date of Service: May 14, 2020 Attending Physician: MARYLU MIGUEL DO Chief Complaint The patient is a 75-year-old female admitted with a reason for visit of Acute hypoxic respiratory failure Source: Patient History of Present Illness Mrs. Kaur is a 75 year old female with dementia and CKD stage III who is at [facility] s/p right hip surgery and is being transferred back to the hospital for acute hypoxic respiratory failure. She underwent right hemiarthroplasty on 05/04/2020. On 05/10/2020, she was taken to ARU for rehab. She was doing okay at rehab ambulating. On 05/12/2020, she was able to ambulate the hallway. On 05/13/2020, she started to require oxygen. Today, she required a non-rebreather and had a temperature of 100.8. When I went to speak with her, she was not feeling well. She had dyspnea and a dry cough. She said the dyspnea started a few days prior, but worsened overnight. Exertion worsens her dyspnea. CT chest with angio was negative for PE. Demonstrated light right upper lobe posteromedial infiltrate and numerous bulla. Patient was started on Zosyn and Decadron. Dr. Mon, the [facility] physician, found out that the patient sees an oncologist at [facility]. She discussed the case with Dr. Tyler's PA and she may have pneumonitis from her recent immunotherapy. The treatment was to the left side. Imaging demonstrates infiltrates on both sides. Home Medications Scheduled Acetaminophen (Acetaminophen) 500 Mg Tablet, 1,000 MG PO TID Brimonidine Tartrate (Brimonidine Tartrate) 0.15% 5ML Drops, 1 DROP OU BID, (Reported) Budesonide (Pulmicort Flexhaler) 180 Mcg Aer.pow.ba, 2 PUFF INH RBID Calcium Carbonate/Vitamin D3 (Calcium 600-Vit D3 400 Tablet) 1 Each Tablet, 2 TAB PO DAILY, (Reported) TAKES AT NOON Docusate Sodium (Dok) 100 Mg Capsule, 100 MG PO BID Ezetimibe/Simvastatin (Ezetimibe-Simvastatin 10-40 mg) 1 Each Tablet, 1 TAB PO QHS, (Reported) Ferrous Sulfate (Ferrous Sulfate) 325 Mg Tablet, 325 MG PO BID L.acidoph/L.bulg/B.bif/S.therm (Erum-Bid Caplet) 1 Each Tablet, 1 EA PO TID Levothyroxine Sodium (Levothyroxine Sodium) 150 Mcg Tablet, 150 MCG PO QAM, (Reported) Olanzapine (Olanzapine) 15 Mg Tablet, 15 MG PO QHS, (Reported) Pantoprazole Sodium (Pantoprazole Sodium) 40 Mg Tablet.dr, 40 MG PO DAILY Euloenvxabgg-Heon-Hdakzimg,Iso (Zosyn 4.5 gm/100 ml Galaxy Bag) 4.5 Gm/100 Ml Froz.piggy, 1 TONI IV Q6H Potassium Citrate (Potassium Citrate ER) 15 Meq Tablet.er, 15 MEQ PO BID, (Reported) TAKES AT NOON/QHS Raloxifene HCl (Raloxifene HCl) 60 Mg Tablet, 60 MG PO QHS, (Reported) Rivaroxaban (Xarelto) 10 Mg Tablet, 10 MG PO QPM, (Reported) TAKES AT 1800 Senna (Senna Lax) 8.6 Mg Tablet, 1 TAB PO QHS Sertraline HCl (Sertraline HCl) 100 Mg Tablet, 200 MG PO QHS, (Reported) Topiramate (Topiramate) 100 Mg Tablet, 200 MG PO QHS, (Reported) Ziprasidone HCl (Ziprasidone HCl) 80 Mg Capsule, 80 MG PO QHS, (Reported) Scheduled PRN Ipratropium/Albuterol Sulfate (Combivent Respimat 20-100 Mcg) 4 Gm Mist.inhal, 1 PUFF INH QID PRN for SOB/WHEEZING, (Reported) Oxycodone HCl (Oxycodone HCl) 5 Mg Tablet, 5 MG PO Q4HP PRN for PAIN Oxycodone HCl/Acetaminophen (Oxycodone-Acetaminophen 5-325) 1 Each Tablet, 1 TAB PO Q4H PRN for PAIN, (Reported) CAN HAVE SECOND TAB PER DOSE Polyethylene Glycol 3350 (Miralax) 119 Gm Powder, 17 GM PO DAILY PRN for CONSTIPATION, (Reported) Allergies Coded Allergies: Sulfa (Sulfonamide Antibiotics) (Verified Allergy, Intermediate, HIVES, 02/16/20) Past Medical History Medical History 1. CKD stage III 2. NIDDM 3. COPD not on home oxygen 4. MDD 5. Hypothyroidism 6. Dementia predominance of short-term memory loss 7. Lung cancer Surgical History 1. Total left hip replacement 2. Right knee replacement 3. Hysterectomy 4. 5. Right hip hemiarthroplasty Family History Father history of CVA and CAD Brother history of lung cancer and diabetes Social History * Smoker: former Smoker (Quit 30 years ago, 1ppd for 30 years) Alcohol: Denies Drugs: denies A-FIB/CHADSVASC A-FIB History Current/History of A-Fib/PAF?: No Review of Systems Constitutional: Reports: Fever Eyes: Denies: Vision change ENT: Denies: Sore Throat Skin: Denies: Rash Pulmonary: Reports: Dyspnea, Cough Cardiovascular: Denies: Chest Pain Gastrointestinal: Denies: Nausea, Abdominal Pain Genitourinary: Denies: Dysuria Neurological: Reports: Weakness Psych: Reports: Anxiety Physical Examination General Exam: Positive: Cooperative, Mild Distress Eye Exam: Positive: EOMI; Negative: Sclera icteric ENT Exam: Positive: Atraumatic Neck Exam: Positive: Supple Chest Exam: Positive: Diminished Heart Exam: Positive: Tachycardic, Regular Rhythm Abdomen Exam: Positive: Normal bowel sounds, Soft; Negative: Tenderness Extremity Exam: Positive: Edema Neuro Exam: Positive: Cranial Nerves 3-12 NL Psych Exam: Positive: Mood NL Vital Signs Temp 100.8 deg F, HR 114, RR 36, BP 136/60, Spo2 97% on 12L nonrebreather Assessment/Plan Mrs. Kaur is a 75 year old female with dementia and CKD stage III who [facility] and is being transferred back to the hospital for acute hy poxic respiratory failure. She may have pneumonitis from immunotherapy vs hospital acquired PNA. Patient will be given oxygen, steroids, and IV antibiotics. Plan / VTE VTE Prophylaxis Ordered?: Yes Plan Plan 1. Acute hypoxic respiratory failure -Pneumonitis vs HAP -Supplemental oxygen -Steroids for pneumonitis -Zosyn for HAP 2. COPD -No wheezing on examination -Continue inhalers and PRN duonebs 3. Diabetes mellitus -Carbohydrate consistent diet -Sliding scale insulin 4. Hypothyroidism -Levothyroxine 5. Cataracts -Brimonidine 6. Depression -Continue Sertraline, Geodon, and Zyprexa 7. DVT ppx -Rivaroxaban (left hip replacement) MARYLU MIGUEL DO May 14, 2020 15:48
[2020-05-14 20:00] VITALS: BP 148/60
[2020-05-14] MEDS: BUDESONIDE 180MCG INHALER (PULMICORT FLEXHALER) INH SCH (20:00)
[2020-05-14] MEDS: OLANZapine 5 MG TAB PO SCH (20:56)
[2020-05-14] MEDS: SERTRALINE 100 MG TAB PO SCH (20:56)
[2020-05-14] MEDS: TOPIRAMATE (TopAMAX) 100 MG TAB PO SCH (20:56)
[2020-05-14] MEDS: methylPREDNISolone 40MG 1ML VIAL IV SCH (20:56)
[2020-05-14] MEDS: HumaLOG INSULIN (NovoLOG) PER UNIT SC SCH (20:58)
[2020-05-14] MEDS: BRIMONIDINE 0.15% OPHTH SOLN 5 ML OU SCH (21:00)
[2020-05-15] VITALS: BP 144/72
[2020-05-15 04:00] VITALS: BP 141/76
[2020-05-15 05:04] LABS: BASO % 0.1 % (0.0-1.0); HEMATOCRIT 24.8 % (36.0-47.0); HEMOGLOBIN 8.1 g/dl (12.0-15.5); LYMPH # 0.6 10^3/uL (1.5-5.0); LYMPH % 3.2 % (24.0-44.0); MEAN CORPUSCULAR HEMOGLOBIN 32.1 pg (27.0-33.0); MEAN CORPUSCULAR HGB CONC 32.7 g/dl (32.0-36.5); MEAN CORPUSCULAR VOLUME 98.4 fl (80.0-96.0); MONO # 0.4 10^3/uL (0.0-0.8); NEUTROPHILS # 17.4 10^3/uL (1.5-8.5); NEUTROPHILS % 93.4 % (36.0-66.0); PLATELET COUNT, AUTOMATED 131 10^3/uL (150-450); RED BLOOD COUNT 2.52 10^6/uL (4.00-5.40); WHITE BLOOD COUNT 18.6 10^3/uL (4.0-10.0)
[2020-05-15 05:40] LABS: BLOOD UREA NITROGEN 11 MG/DL (7-18); CALCIUM LEVEL 8.1 MG/DL (8.8-10.2); CARBON DIOXIDE LEVEL 20 MEQ/L (21-32); CHLORIDE LEVEL 108 MEQ/L (98-107); GLOMERULAR FILTRATION RATE > 60.0 (>39); GLUCOSE, FASTING 130 MG/DL (70-100); SODIUM LEVEL 137 MEQ/L (136-145)
[2020-05-15] MEDS: PIPERACILLIN/TAZOBACTAM SOD 4.5 GM in D5W MINI-BAG PLUS 50 ML IV SCH ×3 (05:43→17:34)
[2020-05-15] MEDS: LEVOTHYROXINE 150MCG TABLET (0.15MG) PO SCH (05:43)
[2020-05-15 07:48] VITALS: BP 135/68
[2020-05-15] MEDS: LACTOBACILLUS ACIDOPHILUS CAP (BACID) PO SCH ×2 (08:00→17:34)
[2020-05-15] MEDS: VANCOMYCIN HCL 1,000 MG, VIAL MATE ADAPTER 1 EACH in D5W 250 ML IV SCH ×2 (08:08→20:29)
[2020-05-15] MEDS: HumaLOG INSULIN (NovoLOG) PER UNIT SC SCH ×4 (08:08→20:38)
[2020-05-15] MEDS: methylPREDNISolone 40MG 1ML VIAL IV SCH ×2 (08:08→20:29)
[2020-05-15] MEDS ORDERED: LEVALBUTEROL 1.25 MG/0.5 ML CONCENTRATE NEB INH PRN (10:45)
[2020-05-15 11:05] LABS: NT-PRO BNP 4629 PG/ML (<450)
[2020-05-15 12:00] VITALS: BP 138/74
[2020-05-15] MEDS: BRIMONIDINE 0.15% OPHTH SOLN 5 ML OU SCH ×3 (12:43→20:38)
--- NOTE | 2020-05-15 13:46 | IPNPDOC ---
Subjective Date Seen The patient was seen on 05/15/20. Subjective Chief Complaint/HPI Mrs. Kaur is a 75 year old female with dementia and CKD stage III who is [facility] and is being transferred back to the hospital for acute hypoxic respiratory failure. This morning, she tells me that her breathing has improved, but she continues to desaturate when she moves. Still requiring 10L of NC. Otherwise, she reports chills. Denies chest pain or abdominal pain. Reports green soft/liquid stool. Procalcitonin is elevated at 0.92. Objective Physical Examination General Exam: Positive: Cooperative Eye Exam: Positive: EOMI; Negative: Sclera icteric ENT Exam: Positive: Atraumatic Neck Exam: Positive: Supple Chest Exam: Positive: Diminished Heart Exam: Positive: Tachycardic, Regular Rhythm Abdomen Exam: Positive: Normal bowel sounds, Soft; Negative: Tenderness Extremity Exam: Positive: Edema (bilateral pitting edema) Neuro Exam: Positive: Cranial Nerves 3-12 NL Psych Exam: Positive: Mood NL Assessment /Plan Assessment Mrs. Kaur is a 75 year old female with dementia and CKD stage III who is at [facility] s/p right hip surgery and is being transferred back to the hospital for acute hypoxic respiratory failure. She may have pneumonitis from immunotherapy vs hospital acquired PNA. Patient will be given oxygen, steroids, and IV ant ibiotics. Plan/VTE VTE Prophylaxis Ordered?: Yes Plan 1. Acute hypoxic respiratory failure -Pneumonitis vs HAP -Supplemental oxygen -Steroids for pneumonitis -Zosyn and Vancomycin for HAP. Added on Lactobacillus 2. COPD -No wheezing on examination -Continue inhalers and PRN Xopenex (has sinus tachycardia) 3. Diabetes mellitus -Carbohydrate consistent diet -Sliding scale insulin 4. Hypothyroidism -Levothyroxine 5. Cataracts -Brimonidine 6. Depression -Continue Sertraline, Geodon, and Zyprexa 7. DVT ppx -Rivaroxaban (left hip replacement) VS, I&O, 24H, Fishbone Vital Signs/I&O Vital Signs Date Time Temp Pulse Resp B/P (MAP) Pulse Ox O2 Delivery O2 Flow Rate FiO2 05/15/20 12:00 99.4 107 23 138/74 (95) 95 High Flow Cannula 10.0 I&O- Last 24 Hours up to 6 AM 05/15/20 06:00 Intake Total 300 ml Output Total 600 ml Balance -300 ml Laboratory Data 24H LABS Laboratory Tests 2 05/14/20 20:39: Bedside Glucose (Misc Panel) 164H 05/15/20 04:41: Immature Granulocyte % (Auto) 1.3, Neutrophils (%) (Auto) 93.4H, Lymphocytes (%) (Auto) 3.2L, Monocytes (%) (Auto) 2.0, Eosinophils (%) (Auto) 0.0, Basophils (%) (Auto) 0.1, Neutrophils # (Auto) 17.4H, Lymphocytes # (Auto) 0.6L, Monocytes # (Auto) 0.4, Eosinophils # (Auto) 0.0, Basophils # (Auto) 0.0, Nucleated Red Blood Cells % (auto) 0.0, Anion Gap 9, Glomerular Filtration Rate > 60.0, Calcium Level 8.1L, QG-Cvh-V-Type Natriuretic Peptide 4629H, Procalcitonin 0.92 05/15/20 08:16: Methicillin-Resist S.aureus DNA PCR NOT DETECTED 05/15/20 12:10: Bedside Glucose (Misc Panel) 117H CBC/BMP Laboratory Tests 05/15/20 04:41 MARYLU MIGUEL DO May 15, 2020 13:46
[2020-05-15] MEDS: BUDESONIDE 180MCG INHALER (PULMICORT FLEXHALER) INH SCH ×2 (14:28→20:26)
[2020-05-15 16:00] VITALS: BP 135/77
[2020-05-15] MEDS: ZIPRASIDONE 80 MG CAP (GEODON) PO SCH (17:33)
[2020-05-15] MEDS: RIVAROXABAN 10 MG TAB (XARELTO) PO SCH (17:34)
[2020-05-15] MEDS: SUCRALFATE SUSP 1GM/10ML UD PO SCH ×2 (17:54→20:30)
[2020-05-15] MEDS: ONDANSETRON 4MG/2ML VIAL IV PRN (17:54)
[2020-05-15] MEDS ORDERED: SODIUM CHLORIDE 0.9% INJ 10 ML SYR IV PRN (19:00)
[2020-05-15 20:00] VITALS: BP 130/59
[2020-05-15] MEDS: TOPIRAMATE (TopAMAX) 100 MG TAB PO SCH (20:30)
[2020-05-15] MEDS: OLANZapine 5 MG TAB PO SCH (20:30)
[2020-05-15] MEDS: PANTOPRAZOLE 40MG TAB (PROTONIX) PO SCH (20:30)
[2020-05-15] MEDS: SERTRALINE 100 MG TAB PO SCH (20:30)
[2020-05-16] VITALS: BP 144/72
[2020-05-16] MEDS: PIPERACILLIN/TAZOBACTAM SOD 4.5 GM in D5W MINI-BAG PLUS 50 ML IV SCH ×4 (00:12→17:23)
[2020-05-16 04:00] VITALS: BP 142/72
[2020-05-16 04:59] LABS: BASO % 0.1 % (0.0-1.0); HEMATOCRIT 24.8 % (36.0-47.0); HEMOGLOBIN 7.8 g/dl (12.0-15.5); LYMPH # 0.8 10^3/uL (1.5-5.0); LYMPH % 4.3 % (24.0-44.0); MEAN CORPUSCULAR HEMOGLOBIN 31.2 pg (27.0-33.0); MEAN CORPUSCULAR HGB CONC 31.5 g/dl (32.0-36.5); MEAN CORPUSCULAR VOLUME 99.2 fl (80.0-96.0); MONO # 0.5 10^3/uL (0.0-0.8); MONO % 2.9 % (0.0-5.0); NEUTROPHILS # 16.5 10^3/uL (1.5-8.5); PLATELET COUNT, AUTOMATED 115 10^3/uL (150-450); WHITE BLOOD COUNT 18.1 10^3/uL (4.0-10.0)
[2020-05-16 05:22] LABS: BLOOD UREA NITROGEN 12 MG/DL (7-18); CALCIUM LEVEL 8.4 MG/DL (8.8-10.2); CARBON DIOXIDE LEVEL 22 MEQ/L (21-32); CHLORIDE LEVEL 106 MEQ/L (98-107); CREATININE FOR GFR 0.76 MG/DL (0.55-1.30); GLOMERULAR FILTRATION RATE > 60.0 (>39); GLUCOSE, FASTING 129 MG/DL (70-100); SODIUM LEVEL 136 MEQ/L (136-145)
[2020-05-16] MEDS: LEVOTHYROXINE 150MCG TABLET (0.15MG) PO SCH (05:57)
[2020-05-16] MEDS: BUDESONIDE 180MCG INHALER (PULMICORT FLEXHALER) INH SCH ×2 (07:39→20:40)
[2020-05-16 08:00] VITALS: BP 142/71
[2020-05-16 08:01] LABS: ABG BASE EXCESS -5.2 (-2.0-2.0); ABG HCO3 19.8 MEQ/L (22.0-26.0); ABG O2 SATURATION 92.4 % (95.0-99.0); ABG PARTIAL PRESSURE CO2 36.5 mmHg (35.0-45.0); ABG PARTIAL PRESSURE O2 67.8 mmHg (75.0-100.0); ABG TOTAL CO2 20.9 MEQ/L (23.0-31.0); ABG pH (ARTERIAL) 7.352 UNITS (7.350-7.450)
[2020-05-16] MEDS: HumaLOG INSULIN (NovoLOG) PER UNIT SC SCH ×4 (08:12→20:25)
[2020-05-16] MEDS: methylPREDNISolone 40MG 1ML VIAL IV SCH ×2 (08:12→20:22)
[2020-05-16] MEDS: SUCRALFATE SUSP 1GM/10ML UD PO SCH ×4 (08:12→20:22)
[2020-05-16] MEDS: LACTOBACILLUS ACIDOPHILUS CAP (BACID) PO SCH ×2 (08:13→17:24)
[2020-05-16] MEDS: ONDANSETRON 4MG/2ML VIAL IV PRN ×3 (08:13→18:04)
[2020-05-16] MEDS: BRIMONIDINE 0.15% OPHTH SOLN 5 ML OU SCH ×3 (08:14→20:32)
[2020-05-16] MEDS: SODIUM CHLORIDE 0.9% INJ 10 ML SYR IV SCH (08:14)
[2020-05-16] MEDS: VANCOMYCIN HCL 1,000 MG, VIAL MATE ADAPTER 1 EACH in D5W 250 ML IV SCH ×2 (08:14→20:22)
[2020-05-16 12:00] VITALS: BP 145/73
--- NOTE | 2020-05-16 14:45 | IPNPDOC ---
Subjective Date Seen The patient was seen on 05/16/20. Subjective Chief Complaint/HPI Mrs. Kaur is a 75 year old female with dementia and CKD stage III who is [facility] surgery and is being transferred back to the hospital for acute hypoxic respiratory failure. Still has dyspnea this morning, Patient had desaturated down to 86 on 15L high flow, but ABG SpO2 was 92.4. The POC SpO2 may not be accurate. otherwise, denies chest pain or abdominal pain. Objective Physical Examination General Exam: Positive: Cooperative Eye Exam: Positive: EOMI; Negative: Sclera icteric ENT Exam: Positive: Atraumatic Neck Exam: Positive: Supple Chest Exam: Positive: Diminished Heart Exam: Positive: Tachycardic, Regular Rhythm Abdomen Exam: Positive: Normal bowel sounds, Soft; Negative: Tenderness Extremity Exam: Positive: Edema (bilateral pitting edema) Neuro Exam: Positive: Cranial Nerves 3-12 NL Psych Exam: Positive: Mood NL Assessment /Plan Assessment Mrs. Kaur is a 75 year old female with dementia and CKD stage III who is at [facility] right hip surgery and is being transferred back to the hospital for acute hypoxic respiratory failure. She may have pneumonitis from immunotherapy vs hospital acquired PNA. Patient will be given oxygen, steroids, and IV antibiotics. Plan/VTE VTE Prophylaxis Ordered?: Yes Plan 1. Acute hypoxic respiratory failure -Pneumonitis vs HAP -Supplemental oxygen -Steroids for pneumonitis -Zosyn and Vancomycin for HAP. Added on Lactobacillus 2. COPD -No wheezing on examination -Continue inhalers and PRN Xopenex (has sinus tachycardia) 3. Diabetes mellitus -Carbohydrate consistent diet -Sliding scale insulin 4. Hypothyroidism -Levothyroxine 5. Cataracts -Brimonidine 6. Depression -Continue Sertraline, Geodon, and Zyprexa 7. DVT ppx -Rivaroxaban (left hip replacement) VS, I&O, 24H, Fishbone Vital Signs/I&O Vital Signs Date Time Temp Pulse Resp B/P (MAP) Pulse Ox O2 Delivery O2 Flow Rate FiO2 05/16/20 12:00 99.1 99 20 145/73 (97) 99 High Flow Cannula 15.0 05/16/20 08:05 100 I&O- Last 24 Hours up to 6 AM 05/16/20 05:59 Intake Total 850 ml Output Total 575 ml Balance 275 ml Laboratory Data 24H LABS Laboratory Tests 2 05/15/20 17:02: Bedside Glucose (Misc Panel) 136H 05/15/20 19:45: Bedside Glucose (Misc Panel) 107 05/16/20 04:40: Anion Gap 8, Glomerular Filtration Rate > 60.0, Calcium Level 8.4L 05/16/20 04:41: Immature Granulocyte % (Auto) 1.7, Neutrophils (%) (Auto) 91.0H, Lymphocytes (%) (Auto) 4.3L, Monocytes (%) (Auto) 2.9, Eosinophils (%) (Auto) 0.0, Basophils (%) (Auto) 0.1, Neutrophils # (Auto) 16.5H, Lymphocytes # (Auto) 0.8L, Monocytes # (Auto) 0.5, Eosinophils # (Auto) 0.0, Basophils # (Auto) 0.0, Nucleated Red Blood Cells % (auto) 0.0 05/16/20 07:47: Blood Gas Bicarbonate Standard 20.0L, Arterial Blood pH 7.352, Arterial Blood Partial Pressure CO2 36.5, Arterial Blood Partial Pressure O2 67.8L, Arterial Blood Total CO2 20.9L, Arterial Blood HCO3 19.8L, Arterial Blood Base Excess - 5.2L, Arterial Blood Oxygen Saturation 92.4L 05/16/20 12:03: Bedside Glucose (Misc Panel) 121H CBC/BMP Laboratory Tests 05/16/20 04:40 05/16/20 04:41 MARYLU MIGUEL DO May 16, 2020 14:45
[2020-05-16 16:00] VITALS: BP 145/68
[2020-05-16] MEDS: RIVAROXABAN 10 MG TAB (XARELTO) PO SCH (17:24)
[2020-05-16] MEDS: ZIPRASIDONE 80 MG CAP (GEODON) PO SCH (17:24)
[2020-05-16] MEDS: CALCIUM CARBONATE 500 MG CHEW U/D PO SCH (18:04)
[2020-05-16 20:00] VITALS: BP 132/67
[2020-05-16] MEDS: SERTRALINE 100 MG TAB PO SCH (20:23)
[2020-05-16] MEDS: PANTOPRAZOLE 40MG TAB (PROTONIX) PO SCH (20:23)
[2020-05-16] MEDS: OLANZapine 5 MG TAB PO SCH (20:23)
[2020-05-16] MEDS: TOPIRAMATE (TopAMAX) 100 MG TAB PO SCH (20:24)
[2020-05-17] VITALS: BP 136/79
[2020-05-17] MEDS: PIPERACILLIN/TAZOBACTAM SOD 4.5 GM in D5W MINI-BAG PLUS 50 ML IV SCH ×4 (00:49→17:17)
[2020-05-17 04:00] VITALS: BP 139/75
[2020-05-17] MEDS: LEVOTHYROXINE 150MCG TABLET (0.15MG) PO SCH (05:24)
[2020-05-17 05:57] LABS: EOS % 0.1 % (0.0-3.0); HEMATOCRIT 24.8 % (36.0-47.0); HEMOGLOBIN 7.9 g/dl (12.0-15.5); LYMPH # 0.5 10^3/uL (1.5-5.0); LYMPH % 3.7 % (24.0-44.0); MEAN CORPUSCULAR HEMOGLOBIN 32.1 pg (27.0-33.0); MEAN CORPUSCULAR HGB CONC 31.9 g/dl (32.0-36.5); MEAN CORPUSCULAR VOLUME 100.8 fl (80.0-96.0); MONO # 0.5 10^3/uL (0.0-0.8); MONO % 3.5 % (0.0-5.0); NEUTROPHILS # 12.6 10^3/uL (1.5-8.5); NEUTROPHILS % 91.5 % (36.0-66.0); PLATELET COUNT, AUTOMATED 109 10^3/uL (150-450); RED BLOOD COUNT 2.46 10^6/uL (4.00-5.40); WHITE BLOOD COUNT 13.8 10^3/uL (4.0-10.0)
[2020-05-17 06:24] LABS: BLOOD UREA NITROGEN 11 MG/DL (7-18); CALCIUM LEVEL 8.6 MG/DL (8.8-10.2); CARBON DIOXIDE LEVEL 24 MEQ/L (21-32); CHLORIDE LEVEL 107 MEQ/L (98-107); CREATININE FOR GFR 0.72 MG/DL (0.55-1.30); FERRITIN 1783 NG/ML (8-252); GLOMERULAR FILTRATION RATE > 60.0 (>39); GLUCOSE, FASTING 131 MG/DL (70-100); POTASSIUM SERUM 3.8 MEQ/L (3.5-5.1); SODIUM LEVEL 138 MEQ/L (136-145)
[2020-05-17 06:27] LABS: ERYTHROCYTE SEDIMENTATION RATE 128 mm/hr (0-30)
[2020-05-17] MEDS: ONDANSETRON 4MG/2ML VIAL IV PRN ×2 (06:45→13:39)
[2020-05-17 08:00] VITALS: BP 161/74
[2020-05-17] MEDS: BUDESONIDE 180MCG INHALER (PULMICORT FLEXHALER) INH SCH ×2 (08:10→19:50)
[2020-05-17] MEDS: HumaLOG INSULIN (NovoLOG) PER UNIT SC SCH ×4 (09:24→20:38)
[2020-05-17] MEDS: VANCOMYCIN HCL 1,000 MG, VIAL MATE ADAPTER 1 EACH in D5W 250 ML IV SCH ×2 (09:24→20:36)
[2020-05-17] MEDS: SUCRALFATE SUSP 1GM/10ML UD PO SCH ×4 (09:24→20:37)
[2020-05-17] MEDS: CALCIUM CARBONATE 500 MG CHEW U/D PO SCH ×3 (09:25→17:13)
[2020-05-17] MEDS: SODIUM CHLORIDE 0.9% INJ 10 ML SYR IV SCH (09:25)
[2020-05-17] MEDS: LACTOBACILLUS ACIDOPHILUS CAP (BACID) PO SCH ×2 (09:25→17:14)
[2020-05-17] MEDS: methylPREDNISolone 40MG 1ML VIAL IV SCH ×2 (09:26→20:37)
[2020-05-17] MEDS: BRIMONIDINE 0.15% OPHTH SOLN 5 ML OU SCH ×3 (09:26→20:38)
[2020-05-17 12:00] VITALS: BP 141/68
--- NOTE | 2020-05-17 15:57 | IPNPDOC ---
Subjective Date Seen The patient was seen on 05/17/20. Subjective Chief Complaint/HPI Mrs. Kaur is a 75 year old female with dementia and CKD stage III who is at [facility] surgery and is being transferred back to the hospital for acute hypoxic respiratory failure. Still has dyspnea. Denies chest pain or abdominal pain. She is able to tolerate a diet, but still has nausea. Objective Physical Examination General Exam: Positive: Cooperative Eye Exam: Positive: EOMI; Negative: Sclera icteric ENT Exam: Positive: Atraumatic Neck Exam: Positive: Supple Chest Exam: Positive: Diminished Heart Exam: Positive: Tachycardic, Regular Rhythm Abdomen Exam: Positive: Normal bowel sounds, Soft; Negative: Tenderness Extremity Exam: Positive: Edema (bilateral pitting edema) Neuro Exam: Positive: Cranial Nerves 3-12 NL Psych Exam: Positive: Mood NL Assessment /Plan Assessment Mrs. Kaur is a 75 year old female with dementia and CKD stage III who is at [facility] s/p right hip surgery and is being transferred back to the hospital for acute hypoxic respiratory failure. She may have pneumonitis from immunotherapy vs hospital acquired PNA. Patient will be given oxygen, steroids, and IV antibiotics. Plan/VTE VTE Prophylaxis Ordered?: Yes Plan 1. Acute hypoxic respiratory failure -Pneumonitis vs HAP -Supplemental oxygen -Steroids for pneumonitis -Zosyn and Vancomycin for HAP. -Continue probiotic -Trending inflammatory markers 2. COPD -No wheezing on examination -Continue inhalers and PRN Xopenex (has sinus tachycardia) 3. Diabetes mellitus -Carbohydrate consistent diet -Sliding scale insulin 4. Hypothyroidism -Levothyroxine 5. Cataracts -Brimonidine 6. Depression -Continue Sertraline, Geodon, and Zyprexa 7. DVT ppx -Rivaroxaban (left hip replacement) Disposition: Pending improvement in respiratory status. She will need rehab. She was at [facility] prior for left hip replacement VS, I&O, 24H, Fishbone Vital Signs/I&O Vital Signs Date Time Temp Pulse Resp B/P (MAP) Pulse Ox O2 Delivery O2 Flow Rate FiO2 05/17/20 12:00 25.0 100 05/17/20 12:00 98.8 107 20 141/68 (92) 90 HVNI-Vapotherm I&O- Last 24 Hours up to 6 AM 05/17/20 06:00 Intake Total 1690 ml Output Total 950 ml Balance 740 ml Laboratory Data 24H LABS Laboratory Tests 2 05/16/20 16:36: Bedside Glucose (Misc Panel) 147H 05/16/20 19:01: Vancomycin Level Trough 14.5 05/16/20 19:38: Bedside Glucose (Misc Panel) 120H 05/17/20 05:40: Immature Granulocyte % (Auto) 1.2, Neutrophils (%) (Auto) 91.5H, Lymphocytes (%) (Auto) 3.7L, Monocytes (%) (Auto) 3.5, Eosinophils (%) (Auto) 0.1, Basophils (%) (Auto) 0.0, Neutrophils # (Auto) 12.6H, Lymphocytes # (Auto) 0.5L, Monocytes # (Auto) 0.5, Eosinophils # (Auto) 0.0, Basophils # (Auto) 0.0, Nucleated Red Blood Cells % (auto) 0.2H, Erythrocyte Sedimentation Rate 128H, Anion Gap 7L, Glomerular Filtration Rate > 60.0, Calcium Level 8.6L, Ferritin 1783H, C- Reactive Protein, Quantitative 16.50H 05/17/20 11:47: Bedside Glucose (Misc Panel) 99 CBC/BMP Laboratory Tests 05/17/20 05:40 MARYLU MIGUEL DO May 17, 2020 15:56
[2020-05-17 16:00] VITALS: BP 160/77
[2020-05-17] MEDS: RIVAROXABAN 10 MG TAB (XARELTO) PO SCH (17:14)
[2020-05-17] MEDS: ZIPRASIDONE 80 MG CAP (GEODON) PO SCH (17:14)
[2020-05-17 19:09] VITALS: BP 146/74
[2020-05-17] MEDS: SERTRALINE 100 MG TAB PO SCH (20:37)
[2020-05-17] MEDS: OLANZapine 5 MG TAB PO SCH (20:37)
[2020-05-17] MEDS: TOPIRAMATE (TopAMAX) 100 MG TAB PO SCH (20:37)
[2020-05-17] MEDS: PANTOPRAZOLE 40MG TAB (PROTONIX) PO SCH (20:38)
[2020-05-18] VITALS: BP 149/89
[2020-05-18] MEDS: PIPERACILLIN/TAZOBACTAM SOD 4.5 GM in D5W MINI-BAG PLUS 50 ML IV SCH ×5 (00:26→23:05)
[2020-05-18 04:00] VITALS: BP 150/84
[2020-05-18] MEDS: LEVOTHYROXINE 150MCG TABLET (0.15MG) PO SCH (05:43)
[2020-05-18 07:20] LABS: BASO % 0.1 % (0.0-1.0); EOS % 0.1 % (0.0-3.0); HEMATOCRIT 22.9 % (36.0-47.0); HEMOGLOBIN 7.1 g/dl (12.0-15.5); LYMPH # 0.6 10^3/uL (1.5-5.0); LYMPH % 4.5 % (24.0-44.0); MONO # 0.4 10^3/uL (0.0-0.8); MONO % 3.4 % (0.0-5.0); NEUTROPHILS # 11.6 10^3/uL (1.5-8.5); NEUTROPHILS % 90.3 % (36.0-66.0); RED BLOOD COUNT 2.29 10^6/uL (4.00-5.40); WHITE BLOOD COUNT 12.8 10^3/uL (4.0-10.0)
[2020-05-18] MEDS: BUDESONIDE 180MCG INHALER (PULMICORT FLEXHALER) INH SCH ×2 (07:37→20:00)
[2020-05-18 07:44] LABS: BLOOD UREA NITROGEN 12 MG/DL (7-18); CALCIUM LEVEL 8.1 MG/DL (8.8-10.2); CARBON DIOXIDE LEVEL 25 MEQ/L (21-32); CHLORIDE LEVEL 106 MEQ/L (98-107); CREATININE FOR GFR 0.71 MG/DL (0.55-1.30); FERRITIN 1476 NG/ML (8-252); GLOMERULAR FILTRATION RATE > 60.0 (>39); GLUCOSE, FASTING 126 MG/DL (70-100); POTASSIUM SERUM 3.5 MEQ/L (3.5-5.1); SODIUM LEVEL 139 MEQ/L (136-145)
[2020-05-18] MEDS: ONDANSETRON 4MG/2ML VIAL IV PRN ×3 (07:54→20:05)
[2020-05-18 08:10] LABS: PLATELET COUNT, AUTOMATED 89 10^3/uL (150-450)
[2020-05-18] MEDS: methylPREDNISolone 40MG 1ML VIAL IV SCH ×2 (08:28→20:05)
[2020-05-18] MEDS: HumaLOG INSULIN (NovoLOG) PER UNIT SC SCH ×4 (08:28→20:07)
[2020-05-18] MEDS: CALCIUM CARBONATE 500 MG CHEW U/D PO SCH ×3 (08:28→17:07)
[2020-05-18] MEDS: SUCRALFATE SUSP 1GM/10ML UD PO SCH ×4 (08:28→20:05)
[2020-05-18] MEDS: LACTOBACILLUS ACIDOPHILUS CAP (BACID) PO SCH ×2 (08:28→17:05)
[2020-05-18] MEDS: BRIMONIDINE 0.15% OPHTH SOLN 5 ML OU SCH ×3 (08:29→20:07)
[2020-05-18] MEDS: SODIUM CHLORIDE 0.9% INJ 10 ML SYR IV SCH (08:29)
[2020-05-18 08:39] LABS: ERYTHROCYTE SEDIMENTATION RATE 107 mm/hr (0-30)
[2020-05-18 09:08] VITALS: BP 147/75
[2020-05-18] MEDS ORDERED: VANCOMYCIN HCL 750 MG, VIAL MATE ADAPTER 1 EACH in D5W 250 ML IV SCH (10:00)
[2020-05-18 12:48] VITALS: BP 141/81
--- NOTE | 2020-05-18 12:50 | IPNPDOC ---
Text Note Date of Service The patient was seen on 05/18/20. NOTE Subjective: -Still dyspneic, otherwise without chest or abdominal pain. Continues to be on vapotherm on 100% FiO2 Objective: VitalsL HDS, afebrile, on vapotherm 100% FiO2 with 25L/min and breathing 18 breaths per minute General: NAD Eyes: EOMI, anicteric ENT: Atraumatic, MMM Neck: Supple, no noted JVD Chest: Diminished throughout, continues to tachypneic Heart: Tachycardic, Regular Rhythm, no noted murmurs Abdomen: Normal bowel sounds throughout, soft, NTND Extremities: bilateral pitting edema, otherwise WWP Neuro: Cranial Nerves 3-12 WNL, moving all extremities Psych: AOx3, normal affect Labs: Reviewed Pending AM CBC BMP with Cr at baseline at 0.71 Ferritin 1476 CRP 13.4 last procal was 0.92 Assessment: 75 year old W with dementia, lung Ca recently on immunotherapy, and CKD stage III who was recently admitted to the ARU s/p right hip surgery and was transferred back to inpatient medicine for acute hypoxemic respiratory failure 2/2 possible hospital acquired PNA vs/+ pneumonitis from immunotherapy on steroids and IV antibiotics. Plan: 1. Acute hypoxemic respiratory failure 2/2 immunotherapy mediated pneumonitis vs/+ possible HCAP -Supplemental oxygen -On steroids for pneumonitis -Zosyn for presumed HAP, day 5 -Continue probiotic -Was trending inflammatory markers? --> no evidence for this for PNA or pneumonitis. Will discontinue trending inflammatory markers and trend WBC and occasional procalcitonin. -covid negative on 05/10 and on 05/14 -DC vanc, was MRSA negative 2. COPD -No wheezing on examination -Continue inhalers and PRN Xopenex 3. Diabetes mellitus -Carbohydrate consistent diet -Sliding scale insulin 4. Hypothyroidism -Levothyroxine 5. Cataracts -Brimonidine 6. Depression -Continue Sertraline, Geodon, and Zyprexa 7. DVT ppx -Rivaroxaban (left hip replacement) Disposition: Pending improvement in respiratory status. She will need rehab. She was at ARU prior for left hip replacement VS,Fishbone, I+O VS, Fishbone, I+O Laboratory Tests 05/18/20 06:43 Vital Signs Date Time Temp Pulse Resp B/P (MAP) Pulse Ox O2 Delivery O2 Flow Rate FiO2 05/18/20 04:00 25.0 100 05/18/20 04:00 97.7 91 18 150/84 (106) 97 HVNI-Vapotherm I&O- Last 24 Hours up to 6 AM 05/18/20 06:00 Intake Total 1670 ml Output Total 1650 ml Balance 20 ml FRIDA ORTIZ MD May 18, 2020 08:20
[2020-05-18 16:32] VITALS: BP 147/75
[2020-05-18] MEDS: RIVAROXABAN 10 MG TAB (XARELTO) PO SCH (17:06)
[2020-05-18] MEDS: ZIPRASIDONE 80 MG CAP (GEODON) PO SCH (17:06)
[2020-05-18 20:00] VITALS: BP 138/76
[2020-05-18] MEDS: TOPIRAMATE (TopAMAX) 100 MG TAB PO SCH (20:06)
[2020-05-18] MEDS: SERTRALINE 100 MG TAB PO SCH (20:06)
[2020-05-18] MEDS: PANTOPRAZOLE 40MG TAB (PROTONIX) PO SCH (20:06)
[2020-05-18] MEDS: OLANZapine 5 MG TAB PO SCH (20:06)
[2020-05-18] MEDS: NYSTATIN 500,000 U/5 ML SUSP UDC SS SCH (23:05)
[2020-05-19] VITALS (25 sets, daily range): BP systolic 82–155; BP diastolic 48–87
[2020-05-19] MEDS: NYSTATIN 500,000 U/5 ML SUSP UDC SS SCH ×4 (05:30→23:01)
[2020-05-19] MEDS: PIPERACILLIN/TAZOBACTAM SOD 4.5 GM in D5W MINI-BAG PLUS 50 ML IV SCH ×3 (05:30→23:05)
[2020-05-19] MEDS: LEVOTHYROXINE 150MCG TABLET (0.15MG) PO SCH (05:30)
[2020-05-19 05:55] LABS: BASO % 0.1 % (0.0-1.0); EOS % 0.1 % (0.0-3.0); HEMATOCRIT 23.5 % (36.0-47.0); HEMOGLOBIN 7.2 g/dl (12.0-15.5); LYMPH # 0.6 10^3/uL (1.5-5.0); LYMPH % 3.7 % (24.0-44.0); MEAN CORPUSCULAR HEMOGLOBIN 30.6 pg (27.0-33.0); MEAN CORPUSCULAR HGB CONC 30.6 g/dl (32.0-36.5); MONO # 0.5 10^3/uL (0.0-0.8); MONO % 3.1 % (0.0-5.0); NEUTROPHILS # 13.5 10^3/uL (1.5-8.5); NEUTROPHILS % 91.6 % (36.0-66.0); RED BLOOD COUNT 2.35 10^6/uL (4.00-5.40); WHITE BLOOD COUNT 14.7 10^3/uL (4.0-10.0)
[2020-05-19 05:58] LABS: PLATELET COUNT, AUTOMATED 70 10^3/uL (150-450)
[2020-05-19 06:10] LABS: BLOOD UREA NITROGEN 18 MG/DL (7-18); CALCIUM LEVEL 8.7 MG/DL (8.8-10.2); CARBON DIOXIDE LEVEL 26 MEQ/L (21-32); CHLORIDE LEVEL 107 MEQ/L (98-107); CREATININE FOR GFR 0.77 MG/DL (0.55-1.30); GLOMERULAR FILTRATION RATE > 60.0 (>39); GLUCOSE, FASTING 128 MG/DL (70-100); POTASSIUM SERUM 3.6 MEQ/L (3.5-5.1); SODIUM LEVEL 138 MEQ/L (136-145)
[2020-05-19 06:30] LABS: ERYTHROCYTE SEDIMENTATION RATE 107 mm/hr (0-30)
[2020-05-19] MEDS: BUDESONIDE 180MCG INHALER (PULMICORT FLEXHALER) INH SCH (08:00)
[2020-05-19] MEDS ORDERED: FERROUS SULFATE 300MG/5ML UDC LIQUID PO SCH (09:00)
[2020-05-19] MEDS: LACTOBACILLUS ACIDOPHILUS CAP (BACID) PO SCH ×2 (09:21→18:00)
[2020-05-19] MEDS: HumaLOG INSULIN (NovoLOG) PER UNIT SC SCH (09:21)
[2020-05-19] MEDS: methylPREDNISolone 40MG 1ML VIAL IV SCH (09:21)
[2020-05-19] MEDS: SUCRALFATE SUSP 1GM/10ML UD PO SCH (09:21)
[2020-05-19] MEDS: CALCIUM CARBONATE 500 MG CHEW U/D PO SCH (09:21)
[2020-05-19] MEDS: SODIUM CHLORIDE 0.9% INJ 10 ML SYR IV SCH (09:22)
[2020-05-19 12:49] LABS: PERCENT SATURATION 48.4 % (13.2-45.0)
[2020-05-19] MEDS ORDERED: methylPREDNISolone 40MG 1ML VIAL IV SCH (13:00)
--- NOTE | 2020-05-19 13:28 | IPNPDOC ---
Text Note Date of Service The patient was seen on 05/19/20. NOTE Subjective: -Feels more dyspneic this morning, otherwise without chest or abdominal pain. Continues to be on vapotherm on 100% FiO2 Objective: VitalsL HDS, afebrile, on vapotherm 100% FiO2 with 25L/min and breathing 18 breaths per minute General: NAD Eyes: EOMI, anicteric ENT: Atraumatic, MMM Neck: Supple, no noted JVD Chest: Diminished throughout, continues to tachypneic Heart: Tachycardic, Regular Rhythm, no noted murmurs Abdomen: Normal bowel sounds throughout, soft, NTND Extremities: bilateral pitting edema, otherwise WWP Neuro: Cranial Nerves 3-12 WNL, moving all extremities Psych: AOx3, normal affect Labs: Reviewed WBC 14.7 Hgb 7.2 (giving 2 units) platelets 70 na 138 k 3.6 Cr 0.77 CRP 12.6 Assessment: 75 year old W with dementia, lung Ca recently on immunotherapy? at [facility] with actual regimen unclear at this, will clarify, and CKD stage III who was recently admitted to the ARU s/p right hip surgery and was transferred back to inpatient medicine for acute hypoxemic respiratory failure 2/2 possible hospital acquired PNA vs/+ pneumonitis from immunotherapy on steroids and IV antibiotics with course c/b worsening anemia and thrombocytopenia. Plan: Acute hypoxemic respiratory failure 2/2 immunotherapy mediated pneumonitis vs/+ possible HCAP -Supplemental oxygen -On steroids for pneumonitis --> increased to 40mg QID per oncology consulted this AM -Zosyn for presumed HAP, day 6 -Continue probiotic -covid negative on 05/10 and on 05/14 -DC'd vanc, was MRSA negative Lung CA: follows with Dr. Craft at [facility] where she recently had immunothera py -f/u on actual Lung CA regimen to chart out if potential side effects of treatments -consulted oncology for adequate steroid dosing for pneumonitis and also the worsening anemia and thrombocytopenia Acute on chronic anemia and thrombocytopenia i/s/o recent cancer treatment -Hgb goal to >8, will give 2u today -hold xarelto given degree of thrombocytopenia -consulted onc COPD -No wheezing on examination -Continue inhalers and PRN Xopenex Diabetes mellitus -Carbohydrate consistent diet -Sliding scale insulin Hypothyroidism -Levothyroxine Cataracts -Brimonidine Depression -Continue Sertraline, Geodon, and Zyprexa DVT ppx -Rivaroxaban (left hip replacement) --> will hold xarelto given worsening thrombocytopenia Disposition: Pending improvement in respiratory status. She will need rehab. She was at ARU prior for left hip replacement VS,Fishbone, I+O VS, Fishbone, I+O Laboratory Tests 05/19/20 05:25 Vital Signs Date Time Temp Pulse Resp B/P (MAP) Pulse Ox O2 Delivery O2 Flow Rate FiO2 05/19/20 09:23 98.1 106 18 150/70 (96) 95 HVNI-Vapotherm 35.0 100 I&O- Last 24 Hours up to 6 AM 05/19/20 05:59 Intake Total 1140 ml Output Total 1050 ml Balance 90 ml FRIDA ORTIZ MD May 19, 2020 10:26
[2020-05-19 15:00] LABS: ABG BASE EXCESS -15.9 (-2.0-2.0); ABG HCO3 15.4 MEQ/L (22.0-26.0); ABG O2 SATURATION 79.6 % (95.0-99.0); ABG PARTIAL PRESSURE O2 69.5 mmHg (75.0-100.0); ABG STANDARD HCO3 11.7 MEQ/L (22.0-26.0); ABG TOTAL CO2 17.7 MEQ/L (23.0-31.0)
[2020-05-19 15:01] LABS: ABG PARTIAL PRESSURE CO2 72.7 mmHg (35.0-45.0); ABG pH (ARTERIAL) 6.945 UNITS (7.350-7.450)
--- NOTE | 2020-05-19 15:40 | IPNPDOC ---
Text Note Date of Service The patient was seen on 05/19/20. NOTE MAXCART NOTE: At approximately 3PM max cart was called on Mrs. Kaur. She was found unresponsive by nursing with the canula slightly to the side and Maxcart was called after she he had no pulse or spontaneous breathing. She received CPR with 3 rounds of epinephrine, 1 amp of bicarb and calcium gluconate x 1 and on achieving ROSC she was intubated and started on dopamine infusion and moved to the ICU, and Dr. Lepe took over the primary attending. I spoke with her cleo Hansenen and updated her and she confirmed that she is still full code at this time and that she will be travelling here wither father and brother given the recent event. Event was likely 2/2 hypoxia precipitating bradycardia and cardiac arrest. VS,Fishbone, I+O VS, Fishbone, I+O Laboratory Tests 05/19/20 05:25 Vital Signs Date Time Temp Pulse Resp B/P (MAP) Pulse Ox O2 Delivery O2 Flow Rate FiO2 05/19/20 12:10 97.8 117 30 151/72 (98) 90 HVNI-Vapotherm 35.0 100 I&O- Last 24 Hours up to 6 AM 05/19/20 05:59 Intake Total 1140 ml Output Total 1050 ml Balance 90 ml FRIDA ORTIZ MD May 19, 2020 15:40
[2020-05-19] MEDS: ALBUTEROL SULFATE 2.5 MG/0.5 ML INH NEB SOLN NEB SCH ×2 (16:00→19:57)
--- NOTE | 2020-05-19 16:10 | REP ---
INDICATION: code. COMPARISON: 05/13/2020. TECHNIQUE: SINGLE PORTABLE AP VIEW OF THE CHEST WAS PERFORMED. FINDINGS: Diffuse bilateral infiltrates are again noted. The infiltrates have mildly increased bilaterally.Heart mediastinum are grossly unchanged. There is an endotracheal tube. The tip is approximately 3 cm above the shelby. A nasogastric tube is seen with side port in the stomach. Left central venous catheter is again noted with the tip in the superior vena cava. IMPRESSION: Bilateral infiltrates are more extensive on the left than on the right. The infiltrates have mildly increased since the prior exam. Endotracheal tube and nasogastric tube appear to be in good position. <Electronically signed by Luis M Chatman > 05/19/20 [id number]
[2020-05-19] MEDS: MIDAZOLAM INJ 2MG/2ML VIAL (J2250 PER 1MG) IV PRN ×6 (16:14→23:07)
[2020-05-19] MEDS ORDERED: methylPREDNISolone 125MG 2ML VIAL IV STA (16:28)
[2020-05-19] MEDS ORDERED: DOPamine HCL 400 MG in IV 1 EA IV SCH (16:38)
[2020-05-19] MEDS ORDERED: NOREPINEPHRINE BITARTRATE 8 MG in D5W 500 ML IV SCH (16:38)
--- NOTE | 2020-05-19 16:44 | REP ---
INDICATION: line placement. COMPARISON: Single view chest 4 p.m.. TECHNIQUE: SINGLE PORTABLE AP VIEW OF THE CHEST WAS PERFORMED. FINDINGS: Bilateral infiltrates, heart and mediastinum are unchanged. Endotracheal tube and nasogastric tube are, as well as left central venous catheter are unchanged. There is placement of a right central venous catheter with the tip in the superior vena cava. There is no pneumothorax.To IMPRESSION: Placement of right central venous catheter with tip in the superior vena cava. No pneumothorax. <Electronically signed by Luis M Chatman > 05/19/20 1640
[2020-05-19 16:56] LABS: ABG BASE EXCESS -5.1 (-2.0-2.0); ABG O2 SATURATION 94.6 % (95.0-99.0); ABG PARTIAL PRESSURE CO2 52.3 mmHg (35.0-45.0); ABG PARTIAL PRESSURE O2 86.6 mmHg (75.0-100.0); ABG STANDARD HCO3 20.1 MEQ/L (22.0-26.0); ABG TOTAL CO2 23.6 MEQ/L (23.0-31.0)
[2020-05-19 17:00] LABS: ABG pH (ARTERIAL) 7.254 UNITS (7.350-7.450)
[2020-05-19 17:27] LABS: BASO # 0.1 10^3/uL (0.0-0.2); BASO % 0.3 % (0.0-1.0); EOS % 0.1 % (0.0-3.0); HEMOGLOBIN 7.3 g/dl (12.0-15.5); LYMPH # 0.6 10^3/uL (1.5-5.0); LYMPH % 2.9 % (24.0-44.0); MEAN CORPUSCULAR HEMOGLOBIN 31.1 pg (27.0-33.0); MEAN CORPUSCULAR HGB CONC 30.4 g/dl (32.0-36.5); MEAN CORPUSCULAR VOLUME 102.1 fl (80.0-96.0); MONO # 0.6 10^3/uL (0.0-0.8); MONO % 2.8 % (0.0-5.0); NEUTROPHILS # 19.2 10^3/uL (1.5-8.5); RED BLOOD COUNT 2.35 10^6/uL (4.00-5.40); WHITE BLOOD COUNT 21.8 10^3/uL (4.0-10.0)
[2020-05-19 17:29] LABS: PLATELET COUNT, AUTOMATED 75 10^3/uL (150-450)
[2020-05-19] MEDS ORDERED: SODIUM BICARBONATE 8.4% INJ 50 ML SYRINGE ONE (17:49)
[2020-05-19] MEDS ORDERED: CALCIUM CHLORIDE 10% 1 GM/10 ML SYR ONE (17:49)
[2020-05-19] MEDS ORDERED: EPINEPHrine 1MG/10ML SYRINGE 1.5IN ONE (17:49)
[2020-05-19] MEDS ORDERED: DOPamine 400 MG/500 ML BAG IN D5W (800MCG/ML) (J1265) ONE (17:49)
[2020-05-19 17:52] LABS: ALBUMIN 1.9 GM/DL (3.2-5.2); BILIRUBIN,TOTAL 0.5 MG/DL (0.2-1.0); CALCIUM LEVEL 9.6 MG/DL (8.8-10.2); CREATININE FOR GFR 1.17 MG/DL (0.55-1.30); GLOMERULAR FILTRATION RATE 47.7 (>39); PHOSPHORUS LEVEL 4.7 MG/DL (2.5-4.9); POTASSIUM SERUM 3.3 MEQ/L (3.5-5.1); TOTAL PROTEIN 5.6 GM/DL (6.4-8.2)
--- NOTE | 2020-05-19 17:56 | CCN ---
CRITICAL CARE NOTE DATE: 05/19/2020 CRITICAL CARE TIME: Two hours and 27 minutes. This excludes all procedures. I went to a Code Blue. I was minutes from the door when the Code Blue was called. The patient had bradycardia'd down after being severely hypoxic for a number of days, lost pulse and blood pressure, and was apneic. Cardiopulmonary resuscitation (CPR) was initiated with chest compressions. Epinephrine was administered. I then intubated the patient, bicarbonate, calcium was given, another two rounds of epinephrine, and chest compressions, and there was return of sinus tachycardia. Patient was severely hypoxic and is actually requiring 15 of positive end-expiratory pressure (PEEP) and still has occasional desaturations on 100% FiO2. Chest x-ray is considered with pneumonitis verus acute respiratory distress syndrome (ARDS). Her working diagnosis on the hospitalist service was drug-induced pneumonitis from Keytruda. Patient has a history of lung cancer. Has been on Keytruda. Was developing ground-glass opacities (GGOs) according to her oncologist. Patient has had infectious workup. Has been on antibiotics and has numerous COVID tests that were negative. She has had lower platelets. Initial blood gas shows a pH of 6.9, pCO2 of 72, pO2 of 69. Arterial blood gas after mechanical ventilation and resuscitation after being put on a dopamine drip, as she was bradycardic, pH is 7.25, pCO2 of 52, PaO2 of 86. Repeat blood work is pending from this morning. Ferritin remains high. C-reactive protein (CRP) remains high. Quite, actually, concerning for COVID despite multiple number of low tests, but she does have an alternative reason for pneumonitis. After intubation she was significantly hypotensive. Due to the fact that she has an Yllpas-Z-Hxiq, I placed a right internal jugular (IJ), started Levophed. Patient has been thrombocytopenic, and heparin was just held yesterday. The patient was actually admitted for a hip fracture and then became acutely hypoxic with diffuse ground-glass infiltrates. PHYSICAL EXAMINATION: Temperature 97.8, pulse 117, respiratory rate 30. Patient is over-breathing the ventilator. Blood pressure is 85/90 with a saturation of 93 on 100% FiO2 and PEEP of 15. GENERAL: Patient is overbreathing the ventilator but basically sedated, not moving any extremities. HEENT: Sclerae clear and anicteric. Pupils equal, reactive to light. mucous membranes are moist. Tongue is midline. NECK: Supple. No tracheal deviation. No mass. LYMPHATIC: No cervical, supraclavicular, or axillary adenopathy. CARDIAC: Tachycardic, S1, S2 without audible murmur, rub, or gallop. PULMONARY: Decreased breath sounds throughout both lung hartley without rales, rhonchi, or wheezes. No dullness to percussion. No accessory muscle use. ABDOMEN: Soft, nontender, nondistended. No hepatosplenomegaly. No masses or hernia. EXTREMITIES: No cyanosis, clubbing, or edema. SKIN: Pale without rashes, jaundice, or bruising. Laboratory evaluation from this morning shows a sodium of 138, potassium 3.6, chloride 107, bicarbonate of 26, BUN 18, creatinine 0.77, glucose 128, calcium 8.7. Ferritin is elevated at 1614. CRP at 12.6. White count is 14.7, hemoglobin 7.2, platelet count of 70. ESR of 107. Arterial blood gas, as mentioned above. Chest x-ray shows diffuse infiltrate. Central line in good position. No evidence of pneumothorax. Near-complete white-out of the left lung. Orogastric (OG) tube is in place below the diaphragm. IMPRESSION: A 75-year-old female with hypoxic respiratory failure, diffuse pulmonary infiltrates, significant for pneumonitis. COVID is not entirely ruled out just because she has had multiple negative tests. She also runs the risk of having alveolar hemorrhage despite there being no evidence of hemoptysis. At this point in time, however, the family is deciding whether or not to pursue more aggressive care. If they wish to consider aggressive care, will need the following treatment. 2. Anemia. Will need blood transfusion. This may help with oxygen-carrying capacity, although the volume status may affect the oxygenation. 3. Thrombocytopenia. With antibody pending with prior history of malignancy, should be on argatroban. 4. Severe hypotension, treated for sepsis but likely from cardiogenic shock from severe hypoxia. May need to dobutamine. Will check scvO2. If patient is going to continue with aggressive measures, I will order an echocardiogram. 5. Hypokalemia. Will see what the next electrolyte panel is in order to prevent over-replacement. 6. Leukocytosis, likely steroid induced from Solu-Medrol. I have given extra Solu-Medrol due to the severity of her hypoxia and the likelihood of pneumonitis in the face of Keytruda. 7. Deep venous thrombosis (DVT) prophylaxis with argatroban. 8. Gastrointestinal (GI) prophylaxis with Protonix. Patient's prognosis is extremely guarded. High risk of .
[2020-05-19] MEDS: VANCOMYCIN HCL 1,000 MG, VIAL MATE ADAPTER 1 EACH in D5W 250 ML IV SCH (18:55)
--- NOTE | 2020-05-19 19:48 | RO ---
OPERATIVE NOTE DATE OF OPERATION: 05/19/2020 PREPROCEDURE DIAGNOSIS: Hypotension. POSTPROCEDURE DIAGNOSIS: Hypotension. PROCEDURE: Right internal jugular venous triple lumen catheter. CONSENT: No consent was obtained, the patient was full code just arrested. Required venous access despite the one line form her Infusaport deemed emergent-emergent. DESCRIPTION OF PROCEDURE: Time-out was performed with two patient identifiers identifying the correct site and correct procedure. The right internal jugular (IJ) was prepped and draped in a sterile manner with full sterile barrier precautions and chlorhexidine. RaGlycoPureson syringe was introduced into the IJ with return of venous blood flow. The wire was fed through the needle and the needle was removed. Triple lumen catheter was then placed via modified Seldinger technique and the wire was removed. All three ports returned venous blood flow and flushed easily. The line was sutured in at 15 cm and a sterile-impregnated dressing was placed over the site. Chest x-ray shows adequate positioning. MTDD
--- NOTE | 2020-05-19 19:54 | RO ---
OPERATIVE NOTE DATE OF OPERATION: 05/19/2020 PREPROCEDURE DIAGNOSIS: Respiratory failure, code. POSTPROCEDURE DIAGNOSIS: Respiratory failure, code. PROCEDURE: Endotracheal intubation. PROCEDURALIST: Johny Lepe D.O. TEST SKEIN WINDER: None. ANESTHESIA: None as the patient was not breathing, was apneic, and had no pulse. DESCRIPTION OF PROCEDURE: A 3 Mac blade was used to view the posterior pharynx. There was a grade 4 view. An 8.0 endotracheal tube was then placed just under the epiglottis. End-tidal CO2 showed change and breath sounds were present bilaterally. Eventually, placement was confirmed with chest x-ray. There were no observed complications.
[2020-05-19] MEDS ORDERED: propofoL 1,000 MG in IV 1 EA IV SCH (21:15)
[2020-05-19] MEDS: CHLORHEXIDINE GLUCONATE 0.12 % 15ML UDC (PERIDEX ORAL RINSE) MT SCH (21:23)
[2020-05-19] MEDS ORDERED: PROPOFOL 1,000 MG/100 ML VIAL As Ordered ONE (21:28)
[2020-05-19] MEDS ORDERED: NOREPINEPHRINE 4 MG/4 ML AMP As Ordered ONE (21:31)
[2020-05-19] MEDS: MORPHINE 2 MG/ML 1ML VIAL (J2270) IV PRN (21:55)
[2020-05-19] MEDS ORDERED: VECURONIUM BROMIDE 10MG VIAL IV PRN (22:30)
[2020-05-19] MEDS: ARGATROBAN 250 MG/250ML for non-ESRD patients IV SCH ×2 (22:39)
[2020-05-19] MEDS: methylPREDNISolone 125MG 2ML VIAL IV SCH (23:01)
[2020-05-19] MEDS ORDERED: REFRIGERATOR IV KEYS XX PRN (23:15)
[2020-05-19] MEDS: MIDAZOLAM HCL 100 MG in D5W 80 ML IV SCH (23:43)
[2020-05-20] VITALS (42 sets, daily range): BP systolic 87–144; BP diastolic 49–69
[2020-05-20 04:28] LABS: HEMOGLOBIN 8.9 g/dl (12.0-15.5); MEAN CORPUSCULAR HEMOGLOBIN 30.3 pg (27.0-33.0); MEAN CORPUSCULAR HGB CONC 31.8 g/dl (32.0-36.5); MEAN CORPUSCULAR VOLUME 95.2 fl (80.0-96.0); RED BLOOD COUNT 2.94 10^6/uL (4.00-5.40); WHITE BLOOD COUNT 15.5 10^3/uL (4.0-10.0)
[2020-05-20 04:29] LABS: PLATELET COUNT, AUTOMATED 42 10^3/uL (150-450)
[2020-05-20 05:10] LABS: ALBUMIN 1.7 GM/DL (3.2-5.2); BILIRUBIN,TOTAL 0.5 MG/DL (0.2-1.0); CALCIUM LEVEL 8.3 MG/DL (8.8-10.2); CREATININE FOR GFR 1.4 MG/DL (0.55-1.30); GLOMERULAR FILTRATION RATE 38.8 (>39); PHOSPHORUS LEVEL 3.6 MG/DL (2.5-4.9); POTASSIUM SERUM 3.5 MEQ/L (3.5-5.1); TOTAL PROTEIN 4.9 GM/DL (6.4-8.2)
[2020-05-20] MEDS: LEVOTHYROXINE 150MCG TABLET (0.15MG) PO SCH (05:22)
[2020-05-20] MEDS: methylPREDNISolone 125MG 2ML VIAL IV SCH ×4 (05:27→22:21)
[2020-05-20] MEDS: VANCOMYCIN HCL 1,000 MG, VIAL MATE ADAPTER 1 EACH in D5W 250 ML IV SCH (05:27)
[2020-05-20] MEDS: PIPERACILLIN/TAZOBACTAM SOD 4.5 GM in D5W MINI-BAG PLUS 50 ML IV SCH ×4 (05:27→22:20)
[2020-05-20] MEDS: NYSTATIN 500,000 U/5 ML SUSP UDC SS SCH ×4 (05:27→23:39)
[2020-05-20 06:07] LABS: ABG BASE EXCESS -4.1 (-2.0-2.0); ABG HCO3 21.4 MEQ/L (22.0-26.0); ABG O2 SATURATION 99.7 % (95.0-99.0); ABG PARTIAL PRESSURE O2 276.3 mmHg (75.0-100.0); ABG STANDARD HCO3 21.1 MEQ/L (22.0-26.0); ABG TOTAL CO2 22.7 MEQ/L (23.0-31.0); ABG pH (ARTERIAL) 7.336 UNITS (7.350-7.450)
[2020-05-20] MEDS: ALBUTEROL SULFATE 2.5 MG/0.5 ML INH NEB SOLN NEB SCH ×4 (07:23→19:15)
--- NOTE | 2020-05-20 08:47 | REP ---
INDICATION: respiratory failure COMPARISON: 05/19/2020 TECHNIQUE: Portable AP view of the chest FINDINGS: Endotracheal tube approximately 1.6 cm above the shelby. Nasogastric tube courses below the left hemidiaphragm. Right IJ line with tip in the SVC. [id number] with tip in the SVC. The cardiac silhouette is grossly normal. Chronic interstitial disease with significant superimposed bilateral multifocal infiltrates are again noted but appear improved and less consolidative as compared to prior examination. No obvious effusion. No obvious pneumothorax. IMPRESSION: 1. Findings suggest mildly improved aeration with continued evidence for multifocal infiltrates demonstrating less consolidative appearance. <Electronically signed by Max Chung > 05/20/20 3220
--- NOTE | 2020-05-20 09:38 | CCN ---
CRITICAL CARE NOTE DATE: 05/20/2020 CRITICAL CARE TIME: One hour and 18 minutes; this excludes all procedures. SUBJECTIVE: Silvia required paralysis overnight due to the severity of her ARDS and high plateau pressures. This morning, despite having p.r.n. paralytics, she is not paralyzed and still has high plateau pressures currently. Plateau measures measuring up to 47 while at rest. Peaks are just above that. FiO2 was able to be titrated down to 0.65; however, remains on a PEEP of 15. She has been started on Argatroban drip due to the thrombocytopenia with history of heparin use. HIT antibody is pending. She remains on vancomycin and Zosyn because I cannot rule out the possibility of sepsis causing ARDS, although it is most likely pneumonitis from drug therapy for malignancy. She remains on high dose steroids of Solu-Medrol 60 every six hours. She is off vasporessive therapy. She likely required them around the time of the code because of the severity of the hypoxia. OBJECTIVE: VITAL SIGNS: Temperature 97.9, pulse 84, respiratory rate 19, vent is set at 16. Blood pressure is 108/56. Oxygen saturation is 96% on 0.65 FiO2. GENERAL: Sedated. No significant movement, but is overbreathing the vent. HEENT: Pupils are pinpoint, but reactive. Mucous membranes are moist. Tongue is midline. NECK: Supple. There is elevated JVP. LYMPH: No cervical, supraclavicular, or axillary adenopathy. CARDIAC: Distant S1, S2. Tachycardic without murmur, rub or gallop. No lower extremity pitting edema. PULMONARY: Fairly clear without rales, rhonchi, or wheezes. No dullness to percussion. ABDOMEN: Soft, nontender, and nondistended. No discernable hepatosplenomegaly. No masses or hernia. EXTREMITIES: There is non-pitting edema around the ankles. There is no cyanosis or clubbing. SKIN: Pale without rashes, jaundice, or bruising. LABORATORY EVALUATION: Shows a white blood cell count of 15.5, hemoglobin 8.9, platelet count 42,000. Sodium 139, potassium 3.5, chloride 107, bicarb of 26, BUN of 30, creatinine of 1.4. PTT 9.1. Arterial blood gas shows a pH of 7.34, pCO2 of 41, PaO2 of 273 that is prior to me decreasing the FiO2 from 1.0 to 0.65. Liver enzymes are trending down and LDH is down to 464 from 786, and albumin is 1.7. IMAGING: Chest x-ray shows minimal improvement, but still has significant bilateral ground-glass abnormalities with an elevated hemidiaphragm and a small right pleural effusion. We looked at imaging CT scan from the that shows diffuse ground-glass with a crazy-paving pattern. IMPRESSION: 1. Severe hypoxia with increased plateau pressures acute respiratory distress syndrome (ARDS) type picture. Differential includes infection versus pneumonitis. The patient has had multiple testing for COVID, which have been negative. She is no high dose steroids and broad-spectrum antibiotics. I think lymphangitis and carcinomatosis and protein alveolar proteinosis are less likely causes of her inflammatory crazy-paving pattern on chest CT. I believe it is more likely secondary to pneumonitis ARDS or possibly infection. She is far too hypoxic at this point in time to even consider bronchoscopy. 2. Leukocytosis. Decreased from WBC 17 to 15 on antibiotics. Will continue to monitor for signs of sepsis. I was actually able to take the patient off of vasopressive therapy today. 3. Anemia. Transfused two units. When speaking to her daughter, she has required blood transfusions frequently over the past few months for anemia. She may have underlying bone marrow suppression. 4. Thrombocytopenia. 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 On Argatroban until this comes back. She is at high risk for thrombosis. 5. Gastrointestinal (GI) prophylaxis with Protonix. 6. Family update: Daughter is very involved with her mother's care. She is the health care proxy. The patient is DO NOT RESUSCITATE (DNR). I believe the daughter has the right mindset, she does not want her other to suffer, but does want to give her a chance if she is able to overcome this. Therefore, we will continue to update her on a daily basis. If after seven days of therapy it does not look like the patient has had significant improvement, I am expecting that they will likely withdraw care. We will continue to support the patient and treat the patient in hopes that she may improve; however, her prognosis is extremely guarded. STEPHANIED
[2020-05-20 09:40] LABS: FOLATE 8.1 NG/ML (>5.4)
[2020-05-20] MEDS: CHLORHEXIDINE GLUCONATE 0.12 % 15ML UDC (PERIDEX ORAL RINSE) MT SCH ×2 (10:01→20:38)
[2020-05-20] MEDS: LACTOBACILLUS ACIDOPHILUS CAP (BACID) PO SCH ×2 (10:01→17:16)
[2020-05-20] MEDS: PANTOPRAZOLE 40MG VIAL (C9113 PER 1) IV SCH (10:01)
[2020-05-20] MEDS: MIDAZOLAM INJ 2MG/2ML VIAL (J2250 PER 1MG) IV PRN ×4 (14:39→23:55)
[2020-05-20] MEDS: MIDAZOLAM HCL 100 MG in D5W 80 ML IV SCH ×2 (18:21→23:57)
[2020-05-20] MEDS: ARGATROBAN 250 MG/250ML for non-ESRD patients IV SCH ×2 (20:38)
[2020-05-21] VITALS (24 sets, daily range): BP systolic 110–131; BP diastolic 56–68
[2020-05-21] MEDS: methylPREDNISolone 125MG 2ML VIAL IV SCH ×3 (04:33→17:02)
[2020-05-21] MEDS: PIPERACILLIN/TAZOBACTAM SOD 4.5 GM in D5W MINI-BAG PLUS 50 ML IV SCH ×2 (04:33→10:26)
[2020-05-21] MEDS: LEVOTHYROXINE 150MCG TABLET (0.15MG) PO SCH (05:10)
[2020-05-21] MEDS: NYSTATIN 500,000 U/5 ML SUSP UDC SS SCH ×3 (05:10→17:01)
[2020-05-21 05:41] LABS: ABG BASE EXCESS -0.4 (-2.0-2.0); ABG HCO3 23.3 MEQ/L (22.0-26.0); ABG O2 SATURATION 98.9 % (95.0-99.0); ABG PARTIAL PRESSURE O2 120.5 mmHg (75.0-100.0); ABG STANDARD HCO3 24.2 MEQ/L (22.0-26.0); ABG TOTAL CO2 24.3 MEQ/L (23.0-31.0); ABG pH (ARTERIAL) 7.453 UNITS (7.350-7.450)
[2020-05-21 06:27] LABS: HEMATOCRIT 24.5 % (36.0-47.0); HEMOGLOBIN 7.9 g/dl (12.0-15.5); MEAN CORPUSCULAR HEMOGLOBIN 30.5 pg (27.0-33.0); MEAN CORPUSCULAR HGB CONC 32.2 g/dl (32.0-36.5); MEAN CORPUSCULAR VOLUME 94.6 fl (80.0-96.0); RED BLOOD COUNT 2.59 10^6/uL (4.00-5.40); WHITE BLOOD COUNT 13.3 10^3/uL (4.0-10.0)
[2020-05-21 06:28] LABS: PLATELET COUNT, AUTOMATED 38 10^3/uL (150-450)
[2020-05-21 06:56] LABS: ALBUMIN 1.7 GM/DL (3.2-5.2); BILIRUBIN,TOTAL 0.4 MG/DL (0.2-1.0); CALCIUM LEVEL 8.3 MG/DL (8.8-10.2); CREATININE FOR GFR 1.96 MG/DL (0.55-1.30); GLOMERULAR FILTRATION RATE 26.3 (>39); POTASSIUM SERUM 3.1 MEQ/L (3.5-5.1); TOTAL PROTEIN 4.8 GM/DL (6.4-8.2)
[2020-05-21] MEDS: ALBUTEROL SULFATE 2.5 MG/0.5 ML INH NEB SOLN NEB SCH ×4 (07:33→19:35)
[2020-05-21] MEDS: MIDAZOLAM INJ 2MG/2ML VIAL (J2250 PER 1MG) IV PRN ×2 (07:48→11:56)
[2020-05-21] MEDS: LACTOBACILLUS ACIDOPHILUS CAP (BACID) PO SCH ×2 (07:48→17:02)
[2020-05-21] MEDS: PANTOPRAZOLE 40MG VIAL (C9113 PER 1) IV SCH (07:49)
[2020-05-21] MEDS: CHLORHEXIDINE GLUCONATE 0.12 % 15ML UDC (PERIDEX ORAL RINSE) MT SCH ×2 (07:49→21:06)
--- NOTE | 2020-05-21 07:52 | REP ---
INDICATION: respiratory failure COMPARISON: 05/20/2020, 05/19/2020 TECHNIQUE: Portable AP view of the chest FINDINGS: The endotracheal tube is 1.5 cm above the shelby. Nasogastric tube in satisfactory position. Right IJ line with tip in the SVC unchanged. [id number] identified with tip in the SVC stable. Cardiac silhouette is within normal limits. Lung hartley demonstrate chronic changes with superimposed diffuse bilateral alveolar and interstitial infiltrates appear relatively unchanged. IMPRESSION: 1. Lines and tubes as described above including endotracheal tube approximately 1.5 cm above the shelby. 2. Diffuse bilateral infiltrates relatively similar to prior examinations. <Electronically signed by Max Chung > 05/21/20 0709
[2020-05-21] MEDS ORDERED: VANCOMYCIN HCL 1,000 MG, VIAL MATE ADAPTER 1 EACH in D5W 250 ML IV SCH (08:00)
[2020-05-21] MEDS ORDERED: POTASSIUM CHLORIDE 10% LIQ 20 MEQ/15 ML UDC PO ONE (10:00)
--- NOTE | 2020-05-21 10:03 | CCN ---
CRITICAL CARE NOTE DATE: 05/21/2020 I had a long phone conversation with the patient's daughter and healthcare proxy, Nancy. She has been updated as to her progress. She confirms to me that they do not wish to continue more than several days if she is not making progress but we will make that final decision if and when the time comes. In the interim, they are agreeable to continued support. She was updated as to her labs and her situation. We will keep her apprised.
--- NOTE | 2020-05-21 10:03 | CCN ---
CRITICAL CARE NOTE DATE: 05/21/2020 START TIME: 0820 hours STOP TIME: 0902 hours I attended Silvia Kaur in the intensive care unit. The patient has been examined and the chart has been reviewed and I spoke at length with her nurse at the bedside. When sedation is lightened she is very anxious, drops her saturations and bucks the vent. Currently on propofol and Versed. Maximum temperature (T-max) overnight 98.4, blood pressure 113-130s systolic, heart rate 80 to the 110s with a sinus mechanism, respiratory rate varies from about 21-30. Intake and output midnight to midnight: 1941 mL in with 365 mL out. Most recent laboratories showed a sodium of 140, potassium of 3.1, chloride 106, CO2 24, BUN 43, creatinine mildly elevated at 1.96, glucose 201, albumin 1.7, liver function tests acceptable. White blood cell count 13.3, hemoglobin down to 7.9, platelet count of 38,000, essentially unchanged from 42,000 yesterday. Blood gas done this morning on an assist control mode tidal volume 440, PEEP of 15, FiO2 of 60%, has a pH of 7.453, pCO2 of 34.0, and PaO2 of 120.5. Chest x-ray is reviewed and shows no significant changes from yesterday. Lines and tubes in good position. Diffuse interstitial changes, somewhat patchy. PTT 104.5, INR Argatroban drip titrated for laboratories. Blood cultures negative to date. Medication list has been reviewed. She remains on Zosyn and vancomycin. On exam, she is sedate and ill-appearing. Pupils reactive. Trachea is at the midline. Chest shows reasonable air entry. There is a faint squeak in the left chest. There is maybe some fine crackles. No convincing egophony. Cardiac exam is tachycardic but regular. Peripheral pulses are palpable, she has mild diffuse edema. Abdomen is soft, hypoactive bowel sounds, no convincing organomegaly or masses. Extremities show bruising consistent with her hospitalizations, no obvious cyanosis or clubbing. No mottling. Neurologically she is currently sedate but agitated when sedation is lightened. The most pressing problems requiring my immediate presence at the bedside: 1. Hypoxemic respiratory failure, cannot rule out acute respiratory distress syndrome (ARDS), question secondary to Keytruda. 2. Suspect right lower lobe pneumonia. 3. Lung cancer on immunotherapy. 4. Right hip fracture. 5. Thrombocytopenia, question heparin-induced. 6. Anemia, acute on chronic. 7. Hypothyroidism. At this point, she remains overall critically ill. She is still requiring significant support from a ventilatory standpoint with high positive-end expiratory pressure (PEEP) and FiO2s. We will make some ventilator changes as her peak airway pressures and plateaus are still above 40. We will try her on a pressure regulated volume control (PRVC) mode and see if she will tolerate a slightly longer inspiratory time, as if she is able to tolerate that, hopefully we can make some progress in that regard. Regarding her thrombocytopenia, heparin has been stopped. We await her heparin-induced thrombocytopenia (HIT) antibodies. She will remain on the Argatroban. I will update her family later today. Dr. Lepe was speaking with them daily. I am told that if she makes no progress within the next several days, that they may not wish to continue support and I will re-confirm that with them. From an infectious standpoint, she remains on Zosyn and vancomycin and I think this is quite reasonable in view of her overall status. No new culture results are available to guide us in that regard. She is tolerating tube feeds with low residuals but has not had a bowel movement yet. Unfortunately, she really does not tolerate turning very much and we will do the best we can in that regard. From a neurologic standpoint, she is quite anxious when sedation is lightened and does not tolerate that very much from a respiratory standpoint. She is DO NOT RESUSCITATE/DO NOT INTUBATE per the family's request. Will proceed as outlined above. Overall, she is critically ill, there is a very, very high likelihood she will not survive this hospitalization.
[2020-05-21] MEDS: METOCLOPRAMIDE INJ 10MG/2ML VIAL (J2765 PER 1) IV SCH ×2 (13:59→21:06)
[2020-05-21] MEDS: MIDAZOLAM HCL 100 MG in D5W 80 ML IV SCH (14:03)
[2020-05-21] MEDS: ARGATROBAN 250 MG/250ML for non-ESRD patients IV SCH ×2 (14:45)
[2020-05-21] MEDS: ARGATROBAN 50 MG in IV 1 EA IV SCH (16:05)
[2020-05-21] MEDS: PIPERACILLIN/TAZOBACTAM SOD 3.375 GM in D5W MINI-BAG PLUS 50 ML IV SCH (17:02)
[2020-05-21] MEDS: MORPHINE 2 MG/ML 1ML VIAL (J2270) IV PRN ×2 (18:26→21:38)
[2020-05-22] VITALS (66 sets, daily range): BP systolic 105–159; BP diastolic 52–73; O2SAT 97
[2020-05-22] MEDS: NYSTATIN 500,000 U/5 ML SUSP UDC SS SCH ×4 (00:12→17:42)
[2020-05-22] MEDS: methylPREDNISolone 125MG 2ML VIAL IV SCH ×4 (00:13→17:42)
[2020-05-22] MEDS: METOCLOPRAMIDE INJ 10MG/2ML VIAL (J2765 PER 1) IV SCH ×4 (03:17→20:48)
[2020-05-22] MEDS: PIPERACILLIN/TAZOBACTAM SOD 3.375 GM in D5W MINI-BAG PLUS 50 ML IV SCH ×3 (03:17→17:42)
[2020-05-22] MEDS: LEVOTHYROXINE 150MCG TABLET (0.15MG) PO SCH (05:29)
[2020-05-22] MEDS: MORPHINE 2 MG/ML 1ML VIAL (J2270) IV PRN (05:29)
[2020-05-22 05:45] LABS: HEMATOCRIT 23.3 % (36.0-47.0); HEMOGLOBIN 7.3 g/dl (12.0-15.5); MEAN CORPUSCULAR HEMOGLOBIN 30.2 pg (27.0-33.0); MEAN CORPUSCULAR HGB CONC 31.3 g/dl (32.0-36.5); MEAN CORPUSCULAR VOLUME 96.3 fl (80.0-96.0); RED BLOOD COUNT 2.42 10^6/uL (4.00-5.40); WHITE BLOOD COUNT 10.9 10^3/uL (4.0-10.0)
[2020-05-22 05:46] LABS: PLATELET COUNT, AUTOMATED 44 10^3/uL (150-450)
[2020-05-22 06:12] LABS: ALBUMIN 1.7 GM/DL (3.2-5.2); BILIRUBIN,TOTAL 0.4 MG/DL (0.2-1.0); CALCIUM LEVEL 7.5 MG/DL (8.8-10.2); CREATININE FOR GFR 2.12 MG/DL (0.55-1.30); POTASSIUM SERUM 3.6 MEQ/L (3.5-5.1); TOTAL PROTEIN 4.6 GM/DL (6.4-8.2)
[2020-05-22 06:50] LABS: ABG BASE EXCESS -2.9 (-2.0-2.0); ABG HCO3 20.8 MEQ/L (22.0-26.0); ABG O2 SATURATION 98.1 % (95.0-99.0); ABG PARTIAL PRESSURE CO2 31.3 mmHg (35.0-45.0); ABG PARTIAL PRESSURE O2 109.9 mmHg (75.0-100.0); ABG TOTAL CO2 21.7 MEQ/L (23.0-31.0)
[2020-05-22] MEDS ORDERED: VANCOMYCIN HCL 1,000 MG, VIAL MATE ADAPTER 1 EACH in D5W 250 ML IV SCH (08:00)
[2020-05-22] MEDS: LACTOBACILLUS ACIDOPHILUS CAP (BACID) PO SCH ×2 (08:00→17:42)
[2020-05-22] MEDS: ALBUTEROL SULFATE 2.5 MG/0.5 ML INH NEB SOLN NEB SCH ×4 (08:10→20:16)
--- NOTE | 2020-05-22 08:28 | REP ---
INDICATION: respiratory failure COMPARISON: 05/21/2020 TECHNIQUE: Portable AP view of the chest FINDINGS: Endotracheal tube 4 cm above the shelby. Nasogastric tube in satisfactory position in the left upper quadrant. Right IJ line with tip in the SVC. Kbzpzw-L-Lgfm with tip in the SVC. Diffuse bilateral parenchymal opacities and decreased lung volumes suggest progressive worsening. Small pleural effusions cannot be excluded. No pneumothorax. Mediastinum and cardiac silhouette are poorly evaluated due to overlying airspace disease. Skeletal structures are stable. IMPRESSION: Decreased lung volumes with increased bilateral consolidations. <Electronically signed by Max Chung > 05/22/20 0047
[2020-05-22] MEDS: MIDAZOLAM HCL 100 MG in D5W 80 ML IV SCH (09:12)
[2020-05-22] MEDS: CHLORHEXIDINE GLUCONATE 0.12 % 15ML UDC (PERIDEX ORAL RINSE) MT SCH ×2 (09:17→20:48)
[2020-05-22] MEDS: PANTOPRAZOLE 40MG VIAL (C9113 PER 1) IV SCH (09:17)
--- NOTE | 2020-05-22 09:48 | CCN ---
CRITICAL CARE NOTE DATE: 05/22/2020 SUBJECTIVE: I again attended Silvia Kaur here in the intensive care unit. The patient examined and the chart reviewed. I spoke at length with the nurse at the bedside. OBJECTIVE: VITAL SIGNS: T-max overnight 98.5, blood pressure 107 to 130s, heart rate generally in the 80s to 90s with a sinus mechanism. Respiratory rate generally in the mid 20s without accessory muscle use. When sedation is light, she does bite the tube and becomes agitated, and she has required reasonable amounts of sedation because of that. INTAKE AND OUTPUT: Ogxgfkdf-rb-qnghwqje 958 mL in with 665 mL out. GENERAL APPEARANCE: She is sedate. HEENT: Pupils do react. Sclerae clear. Membranes are moist. Lines and tubes noted. CHEST: Shows reasonable expansion symmetrically. Fairly clear anteriorly. There may be some faint crackles independently. CARDIAC: Generally regular, no gallop. Peripheral pulses palpable. There is at least 1+ diffuse edema. ABDOMEN: Soft. There are active bowel sounds. No convincing organomegaly or masses. EXTREMITIES: No cyanosis or clubbing. NEUROLOGIC: She is sedate. LABORATORY DATA: Most recent laboratories shows a white blood cell count of 10.9, hemoglobin 7.3, platelet count 44,000. No differential today. Sodium 142, potassium 3.6, chloride 108, CO2 of 24, BUN 50, creatinine about the same as yesterday at 2.12. Liver functions acceptable. Calcium is 7.5. [facility] mode rate of 16, tidal volume 440, PEEP of 15, and FiO2 of 50% has a pH of 7.440, pCO2 of 31.0, and a PaO2 of 109.9. IMAGING: Chest x-ray shows no significant changes in her patchy interstitial areas, as well as right lower lobe consolidation. ASSESSMENT AND PLAN: The most pressing problems requiring my presence at the bedside. 1. Hypoxemia respiratory failure, multifactorial. 2. Acute respiratory distress syndrome (ARDS) most likely versus drug affect from Keytruda. 3. Underlying lung cancer. 4. Thrombocytopenia. 5. Anemia, multifactorial. 6. Renal insufficiency. At this point, we will leave her ventilator settings as is. She has tolerated the ventilator change and I am a little reluctant, in view of her x-ray, to start decreasing her PEEP significantly just yet. If she maintains this current level, then we will begin working on that tomorrow. In the interim, she clearly would benefit from the addition of packed red blood cells. She had received these several days ago and clearly needs them again. She is tolerating her tube feeds. She had a little bit of stool yesterday and we will increase the rate of that. We will monitor her electrolytes. She will continue her current broad-spectrum antimicrobials for her suspected underlying pneumonitis. She remains on Solu-Medrol and we will leave her dose as is for now. We are awaiting the results of her heparin-induced thrombocytopenia antibodies. In the interim, she will remain on Argatroban. Last PTT acceptable at 60. She remains on ulcer prophylaxis. We will continue her Synthroid. She remains quite critically ill and there is a high likelihood she may not survive this hospitalization. I will keep her health care proxy updated as new information becomes available. I left the bedside at 0928 hours. CRITICAL CARE TIME: 38 minutes at the bedside not including procedures.
[2020-05-22] MEDS: ARGATROBAN 50 MG in IV 1 EA IV SCH (21:57)
[2020-05-23] VITALS (50 sets, daily range): BP systolic 126–176; BP diastolic 58–95; O2SAT 96–97
[2020-05-23] MEDS: NYSTATIN 500,000 U/5 ML SUSP UDC SS SCH ×5 (00:02→23:19)
[2020-05-23] MEDS: methylPREDNISolone 125MG 2ML VIAL IV SCH ×5 (00:02→23:18)
[2020-05-23] MEDS: MORPHINE 2 MG/ML 1ML VIAL (J2270) IV PRN ×4 (01:05→20:07)
[2020-05-23] MEDS: METOCLOPRAMIDE INJ 10MG/2ML VIAL (J2765 PER 1) IV SCH ×4 (01:49→20:07)
[2020-05-23] MEDS: PIPERACILLIN/TAZOBACTAM SOD 3.375 GM in D5W MINI-BAG PLUS 50 ML IV SCH ×3 (01:49→17:55)
[2020-05-23] MEDS: MIDAZOLAM HCL 100 MG in D5W 80 ML IV SCH ×2 (02:04→19:08)
[2020-05-23] MEDS: LEVOTHYROXINE 150MCG TABLET (0.15MG) PO SCH (06:01)
[2020-05-23 06:06] LABS: ABG BASE EXCESS -2.6 (-2.0-2.0); ABG HCO3 22.5 MEQ/L (22.0-26.0); ABG O2 SATURATION 96.5 % (95.0-99.0); ABG PARTIAL PRESSURE CO2 40.2 mmHg (35.0-45.0); ABG STANDARD HCO3 22.3 MEQ/L (22.0-26.0); ABG TOTAL CO2 23.7 MEQ/L (23.0-31.0); ABG pH (ARTERIAL) 7.366 UNITS (7.350-7.450)
[2020-05-23 06:18] LABS: HEMATOCRIT 32.6 % (36.0-47.0); MEAN CORPUSCULAR HEMOGLOBIN 29.9 pg (27.0-33.0); MEAN CORPUSCULAR HGB CONC 32.5 g/dl (32.0-36.5); MEAN CORPUSCULAR VOLUME 92.1 fl (80.0-96.0); RED BLOOD COUNT 3.54 10^6/uL (4.00-5.40); WHITE BLOOD COUNT 11.1 10^3/uL (4.0-10.0)
[2020-05-23 06:22] LABS: HEMOGLOBIN 10.6 g/dl (12.0-15.5); PLATELET COUNT, AUTOMATED 44 10^3/uL (150-450)
[2020-05-23 06:46] LABS: ALBUMIN 1.9 GM/DL (3.2-5.2); BILIRUBIN,TOTAL 0.5 MG/DL (0.2-1.0); CALCIUM LEVEL 8.1 MG/DL (8.8-10.2); CREATININE FOR GFR 1.96 MG/DL (0.55-1.30); GLOMERULAR FILTRATION RATE 26.3 (>39); POTASSIUM SERUM 3.3 MEQ/L (3.5-5.1); VANCOMYCIN LEVEL TROUGH 21.5 UG/ML (10.0-20.0)
--- NOTE | 2020-05-23 07:31 | REP ---
INDICATION: respiratory failure COMPARISON: 05/22/2020 TECHNIQUE: Portable AP view of the chest FINDINGS: Endotracheal tube approximately 2.8 cm above the shelby. Smlabb-W-Rhlu terminates in the SVC and is stable. Right IJ line terminates in the SVC/right atrium and appears stable. Nasogastric tube extends into the left upper quadrant. Diffuse bilateral opacities (left greater than right) again identified and similar to prior examination. IMPRESSION: 1. Significant diffuse bilateral pulmonary opacities (left greater than right) relatively similar to prior examination. <Electronically signed by Max Chung > 05/23/20 0728
[2020-05-23] MEDS: LACTOBACILLUS ACIDOPHILUS CAP (BACID) PO SCH ×2 (07:46→17:58)
[2020-05-23] MEDS: ALBUTEROL SULFATE 2.5 MG/0.5 ML INH NEB SOLN NEB SCH ×4 (08:16→20:33)
[2020-05-23] MEDS: VANCOMYCIN HCL 750 MG, VIAL MATE ADAPTER 1 EACH in D5W 250 ML IV SCH (08:58)
[2020-05-23] MEDS: CHLORHEXIDINE GLUCONATE 0.12 % 15ML UDC (PERIDEX ORAL RINSE) MT SCH ×2 (08:58→20:07)
[2020-05-23] MEDS: PANTOPRAZOLE 40MG VIAL (C9113 PER 1) IV SCH (08:58)
[2020-05-23] MEDS ORDERED: POTASSIUM CHLORIDE 10 MEQ SR TABLET PO ONE (10:30)
--- NOTE | 2020-05-23 10:38 | CCN ---
CRITICAL CARE NOTE DATE: 05/23/2020 START TIME: 904 STOP TIME: 942 SUBJECTIVE: I again attended Silvia Kaur here in the intensive care unit. The patient has been examined and chart reviewed. I spoke at length with the nurse at the bedside. Last evening, she did have some issues with oxygen desaturation. She was able to rebound and is back down to 50% FiO2. She did have one tarry stool, but has had no further bowel movements. OBJECTIVE: VITAL SIGNS: T-max overnight 98.3, blood pressure 140 to 170s, heart rate 70 to 100 with a sinus mechanism. Respiratory rate remains 18 to about 24 without obvious accessory muscle. INTAKE AND OUTPUT: Chvljpyp-cd-awxnwfqk 3960 mL in with 800 mL out. GENERAL APPEARANCE: She is sedate. Very anxious and bites the tube when aroused. HEENT: Pupils do react. Sclerae clear. Lines and tubes appear to be in appropriate position. CHEST: Fairly clear anteriorly. There is the rarest of rhonchi. There are some basilar crackles. Expansion is symmetric. CARDIAC: Regular with no obvious gallop. Peripheral pulses are palpable. Lower extremity edema is unchanged. ABDOMEN: Soft with active bowel sounds. No obvious organomegaly or masses. EXTREMITIES: Show mild diffuse edema unchanged. Pulses are palpable. No cyanosis or clubbing. NEUROLOGIC: As outlined above. LABORATORY DATA: Most recent laboratories show a white blood cell count of 11.1, hemoglobin 10.6 (she did receive 2 units of packed red blood cells yesterday). Platelet count remains stable at 44,000. Sodium 142, K 3.3, chloride 110, CO2 of 24, BUN of 53, creatinine 1.96. Glucose 288. Blood gas done this morning on a [facility] with rate of 15, tidal volume 440, PEEP of 15, and FiO2 of 50% has a pH of 7.366, pCO2 of 40.2, and a PaO2 of 89. IMAGING: Chest x-ray shows what appears to be a mild increase in her interstitial markings. MEDICATION REVIEW: She remains on Argatroban drip and this is titrated for a target PTT by protocol. ASSESSMENT AND PLAN: The most pressing problem requiring my presence at the bedside: 1. Hypoxemic respiratory failure likely acute respiratory distress syndrome (ARDS) versus secondary to Keytruda. 2. Advanced nonsmall cell lung cancer. 3. Pneumonitis. 4. Renal failure. 5. Recent hip fracture requiring full anticoagulation. 6. Thrombocytopenia likely multifactorial awaiting heparin-induced antibody levels. At this point, she has been able to tolerate being backed down to 50% FiO2. I would like to begin decreasing her PEEP, but given the issue she had yesterday and the appearance of her chest x-ray this morning, I am a little reluctant to do that just yet. For now, she will continue on broad-spectrum antimicrobials. She remains on Zosyn and vancomycin. No new culture results available at this point. She remains on Argatroban for anticoagulation in view of her presentation and her known hip fracture. She is tolerating tube feeds a little bit better today. I will try increasing them again today. She did have at least some stool yesterday that was somewhat tarry in appearance and was heme-positive, which is not overly surprising. We will monitor her hemoglobin, especially in view of her anticoagulation. She remains on ulcer prophylaxis, as well as Reglan to help with motility. I will speak again with her health care proxy today. At this point, she remains quite critically ill. Progress, if any, has been quite slow. We will see what the next several days bring. There is still a very high likelihood she will not survive this hospitalization and although she is a DO NOT RESUSCITATE (DNR)/DO NOT REINTUBATE, the family wishes to continue her current level of support and I have no qualms with this. CRITICAL CARE TIME: I left the bedside at 0943 hours. There were 38 minutes spent in critical care time at the bedside not including procedures.
[2020-05-23] MEDS ORDERED: POTASSIUM CHLORIDE 10% LIQ 20 MEQ/15 ML UDC PO ONE (10:45)
--- NOTE | 2020-05-23 10:51 | CCN ---
CRITICAL CARE ADDENDUM DATE: 05/23/2020 ADDENDUM: I had a very lengthy phone conversation again with her health care proxy, Nancy Hernadnez, at [phone]. She is also her daughter. We discussed her current situation. She asked very appropriate questions and these were answered to the best of my ability. It sounds as if she completely understands her mother's current status. For now, we will continue her current level of support. She understands that we really have not made much in the way of progress and statistically speaking, the longer that goes on the less likelihood there is of a meaningful recovery. She conveys complete understanding. For now, we will take it day by day. Further recommendations will be made in the progress notes as new information becomes available.
[2020-05-23] MEDS: ARGATROBAN 50 MG in IV 1 EA IV SCH (17:55)
[2020-05-24] VITALS (57 sets, daily range): BP systolic 118–188; BP diastolic 57–103
[2020-05-24] MEDS: MORPHINE 2 MG/ML 1ML VIAL (J2270) IV PRN ×5 (01:25→16:38)
[2020-05-24] MEDS: METOCLOPRAMIDE INJ 10MG/2ML VIAL (J2765 PER 1) IV SCH ×4 (01:25→19:59)
[2020-05-24] MEDS: PIPERACILLIN/TAZOBACTAM SOD 3.375 GM in D5W MINI-BAG PLUS 50 ML IV SCH ×3 (01:25→17:53)
[2020-05-24] MEDS: ARGATROBAN 50 MG in IV 1 EA IV SCH ×3 (02:55→20:57)
[2020-05-24] MEDS: MIDAZOLAM INJ 2MG/2ML VIAL (J2250 PER 1MG) IV PRN ×3 (03:47→07:49)
[2020-05-24] MEDS: LEVOTHYROXINE 150MCG TABLET (0.15MG) PO SCH ×2 (05:03→08:04)
[2020-05-24] MEDS: methylPREDNISolone 125MG 2ML VIAL IV SCH ×4 (05:09→23:44)
[2020-05-24] MEDS: NYSTATIN 500,000 U/5 ML SUSP UDC SS SCH ×4 (05:09→23:44)
[2020-05-24 05:59] LABS: ABG BASE EXCESS -1.8 (-2.0-2.0); ABG HCO3 23.7 MEQ/L (22.0-26.0); ABG O2 SATURATION 94.1 % (95.0-99.0); ABG PARTIAL PRESSURE O2 68.8 mmHg (75.0-100.0); ABG STANDARD HCO3 22.9 MEQ/L (22.0-26.0); ABG pH (ARTERIAL) 7.359 UNITS (7.350-7.450)
[2020-05-24 06:14] LABS: HEMATOCRIT 35.7 % (36.0-47.0); HEMOGLOBIN 11.1 g/dl (12.0-15.5); MEAN CORPUSCULAR HEMOGLOBIN 29.4 pg (27.0-33.0); MEAN CORPUSCULAR HGB CONC 31.1 g/dl (32.0-36.5); MEAN CORPUSCULAR VOLUME 94.4 fl (80.0-96.0); RED BLOOD COUNT 3.78 10^6/uL (4.00-5.40); WHITE BLOOD COUNT 13.4 10^3/uL (4.0-10.0)
[2020-05-24 06:20] LABS: PLATELET COUNT, AUTOMATED 51 10^3/uL (150-450)
[2020-05-24 07:02] LABS: ALBUMIN 2.1 GM/DL (3.2-5.2); BILIRUBIN,TOTAL 0.5 MG/DL (0.2-1.0); CREATININE FOR GFR 1.82 MG/DL (0.55-1.30); GLOMERULAR FILTRATION RATE 28.7 (>39); POTASSIUM SERUM 4.1 MEQ/L (3.5-5.1); VANCOMYCIN RANDOM 19.1 UG/ML
[2020-05-24] MEDS: ALBUTEROL SULFATE 2.5 MG/0.5 ML INH NEB SOLN NEB SCH ×4 (07:56→20:16)
[2020-05-24] MEDS: PANTOPRAZOLE 40MG VIAL (C9113 PER 1) IV SCH (08:03)
[2020-05-24] MEDS: CHLORHEXIDINE GLUCONATE 0.12 % 15ML UDC (PERIDEX ORAL RINSE) MT SCH ×2 (08:04→20:00)
[2020-05-24] MEDS: VANCOMYCIN HCL 750 MG, VIAL MATE ADAPTER 1 EACH in D5W 250 ML IV SCH (08:04)
[2020-05-24] MEDS: LACTOBACILLUS ACIDOPHILUS CAP (BACID) PO SCH ×2 (08:05→17:59)
--- NOTE | 2020-05-24 08:08 | REP ---
INDICATION: respiratory failure COMPARISON: 05/23/2020 TECHNIQUE: Portable AP view of the chest FINDINGS: Endotracheal tube 3 cm above the shelby. Nasogastric tube courses below left hemidiaphragm. Right IJ line in the SVC. Aglnwu-K-Snjc with tip in the SVC. Cardiac silhouette is within normal limits. Diffuse bilateral pulmonary opacities similar to prior examination and consistent with multifocal pneumonia. No significant change from prior examination. IMPRESSION: 1. Diffuse bilateral multifocal infiltrates similar to prior examination. 2. No new acute process appreciated. <Electronically signed by Max Chung > 05/24/20 0890
[2020-05-24] MEDS: ACETAMINOPHEN 325 MG/10.15 ML UDC GT PRN ×2 (09:02→16:37)
--- NOTE | 2020-05-24 10:20 | CCN ---
CRITICAL CARE NOTE DATE: 05/24/2020 START TIME: 849 STOP TIME: 926 SUBJECTIVE: I again attended Silvia Kaur here in the intensive care unit. The patient has been examined, chart reviewed, and I spoke at length with the nurses at the bedside. She has just now spiked a temperature to 101 degrees. Blood pressure 150 to 180 systolic, heart rate approximately 120 with a sinus mechanism, respiratory rate about 20-24, but her peak airway pressures are much lower today in the 20s. Pulse ox remains 93% to 95%, and she remains on 45% FiO2. Chest x-ray shows a suboptimal inspiratory effort and may have an increase in interstitial markings today. OBJECTIVE: INTAKE AND OUTPUT: Nlmabzus-kk-scicrazj 2123 mL in with 965 mL out. GENERAL APPEARANCE: She is ill-appearing. She is agitated and anxious when sedation is lightened. HEENT: Pupils do react. Sclerae clear. Trachea is in the midline. CHEST: Fairly clear anteriorly. There are some independent crackles with some occasional rhonchus. No rubs. CARDIAC: Tachycardic, but regular. Peripheral pulses palpable. Edema is unchanged. ABDOMEN: Soft with active bowel sounds. No organomegaly or masses. EXTREMITIES: Show her diffuse edema. Bruises consistent with her hospitalization. NEUROLOGIC: As outlined above, she does move all extremities. MEDICATIONS: List is reviewed. She remains on Argatroban guided by her coag studies. She remains on vancomycin and Zosyn. MICROBIOLOGY DATA: No new culture results available. Blood cultures have been sent in view of her fever. LABORATORY DATA: Most recent laboratories show a white blood cell count of 13.5, hemoglobin 11.1, platelet count up to 51,000. No differential today. Sodium 146, K 4.1, chloride 112, CO2 of 25, BUN of 58, creatinine 1.82. Liver functions acceptable. Albumin 2.1. Blood gas obtained on a PRVC mode rate of 16, tidal volume 440, PEEP of 15, and FiO2 of 45% has a pH of 7.359, pCO2 of 43, and pO2 of 68.8. She has not required vasopressors. ASSESSMENT AND PLAN: Most pressing problems requiring my presence at the bedside: 1. Hypoxemic respiratory failure, acute respiratory distress syndrome (ARDS) versus secondary to Keytruda. 2. Nonsmall lung cancer, advanced. 3. Hip fracture. 4. Thrombocytopenia, question secondary to Heparin. 5. Fever. At this point with her fever, we will reculture her. Of interest is there has been no significant change in her white blood cell count. Certainly if that increases, we can consider adding antifungal coverage given the length of stay. Her peak airway pressures are much less today and although she has not had a significant change in her oxygenation status, I will slowly begin to try weaning her end-expiratory pressures as we have been able to wean down her fraction of inspired oxygen. I had a very lengthy conversation with her daughter yesterday and, I believe, she is appropriate as it pertains to long-term goals and expectations of outcome. She is tolerating her tube feeds. She is making reasonable urine and her renal function is holding steady. We will proceed as outlined above. No other significant changes will be made regarding her ventilator other than those alluded to above. She is on ulcer prophylaxis. She does not tolerate any lightening of her sedation. From a respiratory standpoint, in fact, we are actually having to add back her propofol today. We will proceed as outlined above. Her prognosis remains guarded at best. CRITICAL CARE TIME: I left the bedside at 0927 hours. There were 37 minutes of critical care time at the bedside not including procedures.
[2020-05-24] MEDS: propofoL 1,000 MG in IV 1 EA IV SCH (10:54)
[2020-05-24] MEDS: MIDAZOLAM HCL 100 MG in D5W 80 ML IV SCH (19:05)
[2020-05-25] VITALS (23 sets, daily range): BP systolic 115–184; BP diastolic 56–91; O2SAT 92
[2020-05-25] MEDS: MIDAZOLAM INJ 2MG/2ML VIAL (J2250 PER 1MG) IV PRN (00:06)
[2020-05-25] MEDS: MORPHINE 2 MG/ML 1ML VIAL (J2270) IV PRN ×2 (00:07→12:53)
[2020-05-25] MEDS: METOCLOPRAMIDE INJ 10MG/2ML VIAL (J2765 PER 1) IV SCH ×2 (02:21→08:30)
[2020-05-25] MEDS: PIPERACILLIN/TAZOBACTAM SOD 3.375 GM in D5W MINI-BAG PLUS 50 ML IV SCH ×2 (02:21→10:45)
[2020-05-25] MEDS: propofoL 1,000 MG in IV 1 EA IV SCH (02:27)
[2020-05-25] MEDS: NYSTATIN 500,000 U/5 ML SUSP UDC SS SCH ×2 (05:21→12:01)
[2020-05-25] MEDS: methylPREDNISolone 125MG 2ML VIAL IV SCH (05:21)
[2020-05-25] MEDS: ARGATROBAN 50 MG in IV 1 EA IV SCH (05:39)
[2020-05-25 05:40] LABS: ABG BASE EXCESS -0.7 (-2.0-2.0); ABG HCO3 24.7 MEQ/L (22.0-26.0); ABG O2 SATURATION 96.2 % (95.0-99.0); ABG PARTIAL PRESSURE CO2 43.9 mmHg (35.0-45.0); ABG PARTIAL PRESSURE O2 81.9 mmHg (75.0-100.0); ABG STANDARD HCO3 23.9 MEQ/L (22.0-26.0); ABG pH (ARTERIAL) 7.368 UNITS (7.350-7.450)
[2020-05-25 05:46] LABS: HEMATOCRIT 33.6 % (36.0-47.0); HEMOGLOBIN 10.3 g/dl (12.0-15.5); MEAN CORPUSCULAR HGB CONC 30.7 g/dl (32.0-36.5); PLATELET COUNT, AUTOMATED 49 10^3/uL (150-450); RED BLOOD COUNT 3.43 10^6/uL (4.00-5.40); WHITE BLOOD COUNT 12.7 10^3/uL (4.0-10.0)
[2020-05-25 06:35] LABS: ALBUMIN 1.9 GM/DL (3.2-5.2); BILIRUBIN,TOTAL 0.4 MG/DL (0.2-1.0); CALCIUM LEVEL 7.6 MG/DL (8.8-10.2); CREATININE FOR GFR 1.77 MG/DL (0.55-1.30); GLOMERULAR FILTRATION RATE 29.6 (>39); POTASSIUM SERUM 5.3 MEQ/L (3.5-5.1); TOTAL PROTEIN 4.7 GM/DL (6.4-8.2)
--- NOTE | 2020-05-25 07:44 | REP ---
INDICATION: respiratory failure COMPARISON: 05/24/2020 TECHNIQUE: Portable AP view of the chest FINDINGS: Endotracheal tube approximately 2.5 cm above the shelby. Nasogastric tube in satisfactory position. Right IJ line with tip in the SVC. Stable Rhikjh-M-Zszb with tip in the SVC. Diffuse bilateral airspace disease (left greater than right) essentially unchanged from prior examinations. No definite effusion. No pneumothorax. Skeletal structures stable. IMPRESSION: No significant change from prior examination. Diffuse bilateral infiltrates (left greater than right) again noted. <Electronically signed by Max Chung > 05/25/20 0721
[2020-05-25] MEDS: ALBUTEROL SULFATE 2.5 MG/0.5 ML INH NEB SOLN NEB SCH (07:57)
[2020-05-25] MEDS ORDERED: propofoL 1,000 MG in IV 1 EA IV SCH ×2 (08:00→14:00)
[2020-05-25] MEDS: VANCOMYCIN HCL 750 MG, VIAL MATE ADAPTER 1 EACH in D5W 250 ML IV SCH (08:29)
[2020-05-25] MEDS: CHLORHEXIDINE GLUCONATE 0.12 % 15ML UDC (PERIDEX ORAL RINSE) MT SCH (08:29)
[2020-05-25] MEDS: PANTOPRAZOLE 40MG VIAL (C9113 PER 1) IV SCH (08:30)
[2020-05-25] MEDS: LACTOBACILLUS ACIDOPHILUS CAP (BACID) PO SCH (08:30)
[2020-05-25] MEDS ORDERED: NORCO, ANEXSIA 5/325MG TABLET (HYDROcodone/ACETAMINOPHEN) PO PRN (09:15)
--- NOTE | 2020-05-25 10:02 | CCN ---
CRITICAL CARE NOTE DATE: 05/25/2020 START TIME: 820 STOP TIME: 858 SUBJECTIVE: I again attended Silvia Kaur here in the Intensive Care Unit. Patient was examined, chart reviewed, and I spoke at length with the nurses at bedside. T-max overnight 99.9. Blood pressure 130s to 160s systolic. Heart rate this morning 110-120 with a sinus mechanism. Respiratory rate generally in the 20s. I's and O's midnight 2,623 mL in with 1,315 mL out. Chest x-ray is pending this morning. Most recent laboratories showed a white blood cell count of 12.7, hemoglobin 10.3, platelet count 49,000. Sodium 147, potassium 5.3, chloride 113, CO2 28, BUN 64, creatinine 1.77, glucose 266. AST and ALT essentially unchanged except for the ALT minimally elevated today at 80. Albumin remains 1.9. Blood gas done on a PRVC mode, tidal volume 440, rate of 15, PEEP of 12, and FiO2 of 55% shows a pH of 7.368, pCO2 43.9, pO2 81.9, and a saturation of 96.2%. Vancomycin level is being monitored through pharmacy. No new culture results. OBJECTIVE: General: She is ill appearing. She is generally synchronous with the vent but occasionally has a little bit more labored respiratory effort. HEENT: Pupils do react, but she had a more of a downward gaze today. Sclera clear and nonicteric. Trachea is in the midline. Chest: Chest shows diminished but symmetric expansion. There are some dependent crackles. No convincing wheeze or rhonchus. Cardiac: Quite tachycardic today. Peripheral pulses palpable. Diffuse edema is unchanged. Abdomen: Soft with active bowel sounds. No obvious organomegaly or masses. Extremities: Extremities show bruises consistent with her hospitalization. Her surgical incision was examined today. It is clean and dry. [place] intact and healing well. No other cyanosis or clubbing. Neurologic: She requires more sedation. She is anxious and agitated when lightened but does not routinely follow commands. ASSESSMENT: Most pressing problems requiring my presence at the bedside: 1. Respiratory failure, multifactorial. 2. ARDS versus drug effect from Keytruda. 3. Suspect pneumonitis. 4. Recent hip fracture requiring full anticoagulation. 5. Thrombocytopenia on Keytruda for concerns of HIT. 6. Nonsmall cell lung cancer. 7. Status post MAX cart. 8. Mild hypernatremia. PLAN: At this point, we have really not made much in the way of progress. I was able to decrease her PEEP somewhat in the last 48 hours, but she is nowhere near ready for further weaning. I am still concerned about her neurologic status, and at this point, it is very difficult to assess. I have had multiple conversations with her health care proxy regarding plan of care. I will be speaking to her again in the next day or so. Certainly if she is not able to wean, the next step would be tracheostomy, but she is really not medically stable for that, and I need to be clear in the understanding of what the chcf goals of her family are. She remains on argatroban guided by PTTs. She remains on broad spectrum antimicrobials. White blood cell count has been unchanged. No fever in the last 24 hours. Her hemoglobin has been holding. There was some concern over GI bleed early, but she has not required repeat transfusions. She has had several stools which are more normal. She remains on ulcer prophylaxis. I will have Orthopedics come reassess her incision today. It is likely we can get her ileana out. We may be reaching the point regarding discussion regarding comfort care as that was an initial discussion early on with the family. I think it would be useful and helpful for them to be able to come in and visit her, and I will speak with the administration regarding that, especially in view of the COVID-19 visiting restrictions. At this point, we will continue our current level of care. She is a DNR and is a no reintubation. Will proceed as outlined above. I have added some free water down her feeding tube to aid with her hypernatremia. Overall prognosis is guarded. There is a very high likelihood she will not survive this hospitalization. I left the bedside at 0859 hours. Thirty-eight minutes of critical care time at the bedside not including procedures.
[2020-05-25] MEDS: MIDAZOLAM HCL 100 MG in D5W 80 ML IV SCH (12:00)
[2020-05-25] MEDS ORDERED: LORazepam 2 MG/ML VIAL IV PRN (12:30)
[2020-05-25] MEDS ORDERED: SCOPOLAMINE 1MG TRANSDERMAL PATCH TOP PRN (12:30)
[2020-05-25] MEDS ORDERED: methylPREDNISolone 125MG 2ML VIAL IV SCH (13:00)
--- NOTE | 2020-05-25 13:04 | IPN ---
PROGRESS NOTE DATE: 05/25/2020 SUBJECTIVE: I had a lengthy phone conversation with the patient's daughter and health care proxy Nancy as well as the patient's and her son. At this point they understand the severity of her situation. They wish to proceed with comfort measures care and I think this is appropriate. Orders were written for this.
--- NOTE | 2020-05-26 09:10 | DSES ---
DISCHARGE SUMMARY DATE OF ADMISSION: 05/14/2020 DATE OF DISCHARGE/: 05/25/2020 TIME OF : 1318 BRIEF HISTORY: Ms. Kaur was a 75-year-old female admitted to the acute portion of the hospital on 05/14/2020, for worsening hypoxemia and interstitial lung disease felt to be secondary most likely to Keytruda. Physical examination at the time of her admission showed an elderly female in respiratory distress requiring high-flow oxygen. Underlying dementia and status post recent right hip surgery. Chest showed diminished breath sound intensity and maybe some crackles. Cardiac exam was tachycardia and regular. Abdomen soft and nontender. Extremities showed her incision from her right hip surgery which was clean and dry. HOSPITAL COURSE: She was admitted initially to the progressive care unit and treated with broad-spectrum antimicrobials and steroids, as well as full anticoagulation. She remained requiring very high dose oxygen levels with Vapotherm. Despite this, she had essentially a bradycardic arrest and was intubated. This occurred on 05/19/2020. Over the next several days, she really made no progress. She required at one point 100% FiO2 and 15 cm of water of PEEP. She had significant thrombocytopenia and was changed from heparin to Argatroban. Heparin antibodies were still pending at the time of this dictation. She did have issues with chronic anemia and did require transfusions, but over the last several days, her hemoglobin did hold. We were only able to make minimal changes in her ventilatory settings. She had no improvement at all in her chest x-ray findings. She was tolerating tube feeds. She remained on broad-spectrum antimicrobials. No significant bacteria ever grew. Family was updated regularly. Family was allowed to visit on 05/25/2020. After that visit, they requested a phone conversation with me. After that conversation, seeing her current status and the lack of progress, they opted for comfort measures care and that was felt to be completely appropriate, and those orders were written. She shortly thereafter. No autopsy requested. Time of 1319. Please refer to the hospital record for pertinent laboratories.
== END 2020-05-25 13:19 | disposition expired | DRG 207 ==
LOC: M PCU 15:49
PROVIDERS: ADMIT Family Medicine; ATTEND Internal Medicine
PROC: 5A1955Z Respiratory Ventilation, Greater than 96 Consecutive Hours (ICD-10-PCS; principal; 2020-05-16)
DX: J70.4 Drug-induced interstitial lung disorders, unspecified (principal); J96.01 Acute respiratory failure with hypoxia; C34.90 Malignant neoplasm of unspecified part of unspecified bronchus or lung; J44.0 Chronic obstructive pulmonary disease with (acute) lower respiratory infection; E87.0 Hyperosmolality and hypernatremia; N17.9 Acute kidney failure, unspecified; E46 Unspecified protein-calorie malnutrition; I46.8 Cardiac arrest due to other underlying condition; R57.0 Cardiogenic shock; J18.9 Pneumonia, unspecified organism; N18.30 Chronic kidney disease, stage 3 unspecified; E11.9 Type 2 diabetes mellitus without complications; J44.9 Chronic obstructive pulmonary disease, unspecified; F03.90 Unspecified dementia, unspecified severity, without behavioral disturbance, psychotic disturbance, mood disturbance, and anxiety; D64.81 Anemia due to antineoplastic chemotherapy; D69.59 Other secondary thrombocytopenia; E87.6 Hypokalemia